=== PATIENT | female | born 2000 | race Caucasian/White ===

== ENCOUNTER 2020-02-28 13:12 | Outpatient (CLI) | payer OTHER, SELFPAY ==
--- NOTE | ~2020-02-28 | US_ITS ---
EXAMINATION: US OB <= 14 weeks fetus DATE: 02/28/2020 13:50 INDICATION: Supervision of normal during first trimester TECHNIQUE: Real-time pelvic ultrasound utilizing both a transvaginal and transabdominal probe was pe rformed. The interpreting radiologist was not present for the study. COMPARISON: None. FINDINGS: The uterus measures 10.5 x 7.7 x 6.3 cm. There is an intrauterine gestational sac. A yolk sac and fe viv pole are identified. The crown rump length measures 1.9 cm, which correlates with an estimated ge stational age of 8 weeks and 4 days. heart motion is identified measuring 163 beats per minute (bpm) by M-mode Doppler. The right ovary measures 3.5 x 2.1 x 1.8 cm. The left ovary measures 4.7 x 3.5 x 2.3 cm. Vascular tacos w identified at both ovaries on color Doppler. There is no free fluid in the pelvis. IMPRESSION: 1. Single living fetus with heart rate of 163 bpm. 2. Gestational age by ultrasound of 8 weeks 4 day(s) +/- 4 day(s) with ultrasound estimated date of delivery (YULISA) of 10/05/2020. Reviewed, dictated and finalized at location A. [facility] IMPRESSION: 1. Single living fetus with heart rate of 163 bpm. 2. Gestational age by ultrasound of 8 weeks 4 day(s) +/- 4 day(s) with ultraso und estimated date of delivery (YULISA) of 10/05/2020.
== END 2020-02-28 13:13 | disposition home or self-care (01) ==
PROVIDERS: PCP Obstetrics & Gynecology; Visit Provider Obstetrics & Gynecology
DX: Z34.91 Encounter for supervision of normal pregnancy, unspecified, first trimester (principal); Z3A.08 8 weeks gestation of pregnancy
CPT/HCPCS: 76801

== ENCOUNTER 2020-04-30 12:54 | Outpatient (CLI) | payer OTHER, SELFPAY ==
--- NOTE | ~2020-04-30 | US_ITS ---
EXAMINATION: US OB follow up EXAM DATE: 04/30/2020 13:36 INDICATION: Routine care. 2nd trimester. TECHNIQUE: Pelvic obstetrical transabdominal sonogram was performed by a technologist. There are mu ltiple grayscale and Doppler images available for interpretation. Comparison is made to prior examina tion from 02/28/2020. FINDINGS: There is a single fetus identified in vertex presentation with a heart rate of 127 beats pe r minute. The placenta is located in the posterior position. There is no sonographic evidence of ret roplacental hemorrhage identified. The amniotic fluid index is 11.9 centimeters, which is normal. BIOMETRIC DATA: Biparietal diameter (BPD): 3.9 cm ----------------> 17 weeks 6 days. Head circumference (HC): 14.3 cm ----------------> 17 weeks 4 days. Abdominal circumference (AC): 12.2 cm ----------> 17 weeks 6 days. Femur length (FL): 2.4 cm --------------------------> 17 weeks 1 day. These measurements are concordant. HC/AC ratio is 1.18 (The 5th -- 95th percentile range is 1.08-1.28. Estimated weight is 200 g +/- 30 g. This is the 53rd percentile when the currently reported cl inical gestation age 17 weeks 3 days, clinical estimated date of delivery (YULISA-OPE) 10/05 is used. Fet al estimated gestational age based on measurements from this exam is 17 weeks 4 days, with an estimat ed date of delivery (YULISA-AUA) 10/04. IMPRESSION: 1. Single fetus in vertex presentation with heart rate 127 beats per minute. 2. Estimated weight of 200 grams, 53rd percentile using the currently reported clinical gestat ion age of 17 weeks 3 days, YULISA(OPE) 10/05. 3. Normal FRANCESCO 12 cm. Reviewed, dictated and finalized at location A. IMPRESSION: 1. Single fetus in vertex presentation with heart rate 127 beats per minute. 2. Estimated weight of 200 grams, 53rd percentile using the currently re ported clinical gestation age of 17 weeks 3 days, YULISA(OPE) 10/05. 3. Normal FRANCESCO 12 cm.
== END 2020-04-30 12:55 | disposition home or self-care (01) ==
PROVIDERS: PCP Obstetrics & Gynecology; Visit Provider Obstetrics & Gynecology
DX: Z34.91 Encounter for supervision of normal pregnancy, unspecified, first trimester (principal); Z3A.17 17 weeks gestation of pregnancy
CPT/HCPCS: 76816

== ENCOUNTER 2020-07-04 11:19 | Outpatient (CLI) | payer OTHER, SELFPAY ==
--- NOTE | ~2020-07-04 | US_ITS ---
EXAMINATION: US OB follow up DATE: 07/04/2020 11:48 INDICATION: Evaluate growth. TECHNIQUE: Real-time transabdominal obstetric ultrasound. FINDINGS: Comparison ultrasound dated 04/30/2020 There is a single living fetus in vertex presentation. The placenta is posterior/fundal without plac enta previa. cardiac activity and movement is noted with a heart rate of 138 beats per minute. T he amniotic fluid volume is normal. FRANCESCO measures 13.2 cm. The following biometric data were obtained: BPD: 68mm corresponds to gestational age 27 weeks 3 days. Head circumference: 248mm corresponds to gestational age 26 weeks 6 days. Abdominal circumference: 243mm corresponds to gestational age 28 weeks 4 days. Femur length: 49mm corresponds to gestational age 26 weeks 3 days. Estimated weight: 1104grams +/- 165grams.] IMPRESSION: 1. Single living intrauterine in vertex presentation with an estimated gestational age of 26 weeks 6 days by inititial ultrasound. Appropriate interval growth. 2. Normal placenta. Reviewed, dictated and finalized at location A. IMPRESSION: 1. Single living intrauterine in vertex presentation with an estimat ed gestational age of 26 weeks 6 days by inititial ultrasound. Appropriate int erval growth. 2. Normal placenta.
== END 2020-07-04 11:20 | disposition home or self-care (01) ==
LOC: ANHIMG 11:21
PROVIDERS: PCP Obstetrics & Gynecology; Visit Provider Obstetrics & Gynecology
DX: Z34.91 Encounter for supervision of normal pregnancy, unspecified, first trimester (principal); Z3A.26 26 weeks gestation of pregnancy
CPT/HCPCS: 76816

== ENCOUNTER 2020-08-14 08:24 | Outpatient (CLI) | payer OTHER, SELFPAY ==
--- NOTE | ~2020-08-14 | US_ITS ---
EXAMINATION: US OB follow up EXAM DATE: 08/14/2020 09:12 INDICATION: Supervision of normal . 3rd trimester. TECHNIQUE: Pelvic obstetrical transabdominal sonogram was performed by a technologist. There are mu ltiple grayscale and Doppler images available for interpretation. Comparison is made to prior examina tion from 07/04/2020. FINDINGS: There is a single fetus identified in vertex presentation with a heart rate of 141 beats pe r minute. The placenta is located in the right fundal position. There is no sonographic evidence of retroplacental hemorrhage identified. The amniotic fluid index is 11.6 centimeters, which is normal. BIOMETRIC DATA: Biparietal diameter (BPD): 8.1 cm ----------------> 32 weeks 3 days. Head circumference (HC): 29.0 cm ----------------> 31 weeks 6 days. Abdominal circumference (AC): 28.4 cm ----------> 32 weeks 3 days. Femur length (FL): 6.0 cm --------------------------> 31 weeks 1 day. These measurements are concordant. HC/AC ratio is 1.02 (The 5th -- 95th percentile range is 0.96-1.14. Estimated weight is 1878 g +/- 282 g. This is the 23rd percentile when the currently reported clinical gestation age 32 weeks 4 days, clinical estimated date of delivery (YULISA-OPE) 10/05 is used. F etal estimated gestational age based on measurements from this exam is 32 weeks 0 days, with an estim ated date of delivery (YULISA-AUA) 10/09. IMPRESSION: 1. Single fetus in vertex presentation with heart rate 141 beats per minute. 2. Estimated weight of 1878 grams, 23rd percentile using the currently reported clinical gesta tion age of 32 weeks 4 days, YULISA(OPE) 10/05. 3. Normal FRANCESCO 11.6 cm. Reviewed, dictated and finalized at location B. IMPRESSION: 1. Single fetus in vertex presentation with heart rate 141 beats per minute. 2. Estimated weight of 1878 grams, 23rd percentile using the currently r eported clinical gestation age of 32 weeks 4 days, YULISA(OPE) 10/05. 3. Normal FRANCESCO 11.6 cm.
== END 2020-08-14 08:25 | disposition home or self-care (01) ==
PROVIDERS: PCP Obstetrics & Gynecology; Visit Provider Obstetrics & Gynecology
DX: Z34.83 Encounter for supervision of other normal pregnancy, third trimester (principal); Z3A.32 32 weeks gestation of pregnancy
CPT/HCPCS: 76816

== ENCOUNTER 2020-10-05 04:59 | Inpatient (IN) | payer OTHER, SELFPAY ==
[2020-10-05] VITALS (61 sets, daily range): BP systolic 87–137; BP diastolic 35–105; PULSE 51–114; TEMP 36.8–37.1; O2SAT 87–100; BMI 34.1
--- NOTE | 2020-10-05 04:59 | LDADM ---
This patient, Mary Newberry, was admitted to Labor/Delivery/Recovery 107 on 10/05/20 at 04:59. Plans for labor, pain management and were discussed with patient. Patient/family oriented to hospital policies and general routines including ID bracelet, bed and alarms, visiting hours, pain management, procedures, bathroom and other care routines, personal items, smoking policy, room service/diet and guest tray routines, infant security routines, and visiting hours. Patient/Family are encouraged to report perceived risks to care and to ask questions if they do not understand what they are told or what they should do. See OBIX for further documentation.
[2020-10-05 06:01] LABS: Basophils Percent Auto 0.3 % (0.2-1.2); Eosinophils Absolute Auto 0.2 K/mm3 (0-0.3); Eosinophils Percent Auto 1.4 % (0-4.4); Hematocrit 32.6 % (37.0-47.0); Hemoglobin 10.6 g/dL (12.0-15.0); Immature Granulocyte Absolute 0.12 K/mm3 (0.00-0.031); Immature Granulocyte Percent A 1.1 % (0-0.5); Lymphocytes Absolute Auto 1.83 K/mm3 (0.9-3.2); Lymphocytes Percent Auto 16.6 % (18.3-44.2); Mean Corpuscular HGB Conc 32.5 g/dl (32-36); Mean Corpuscular Hemoglobin 28.6 pg (26-34); Mean Corpuscular Volume 87.9 fl (80-100); Mean Platelet Volume 10.1 fl (7.4-10.4); Monocytes Absolute Auto 0.6 K/mm3 (0.1-0.6); Monocytes Percent Auto 5.6 % (2.6-8.5); Neutrophils Absolute Auto 8.3 K/mm3 (1.3-6.7); Platelet Count Result 304 k/mm3 (150-375); Red Blood Count 3.71 M/mm3 (4.2-5.4); Red Cell Distribution Width 13.9 % (11.5-14.5)
[2020-10-05] MEDS: DINOPROSTONE 10 MG VAG INSERT VAGINAL (07:09)
[2020-10-05 07:39] LABS: Rapid Plasma Reagin Non-Reactive (NonReactive)
--- NOTE | 2020-10-05 09:07 | PM.IMHP ---
H&P: HPI History of Present Illness Date/Time: 10/05/20 09:07 20 y/o presents for elective induction of labor at 40weeks. complicated by history of miscarriage, MTHFR, and HSV I explained her condition procedure and risks involved including but not limited to maternal and indications for delivery shoulder dystocia or hemorrhage. Risk of surgery including bleeding infection injury to bladder bowel baby pelvic vessels DVT pneumonia wound infections endometrioid is UTI risk of anesthesia. She understands accepts and agrees to proceed. Informed consent obtained. Cervidil followed by oxytocin. 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 [facility] pill- SLYND Chief Complaint: Term Elective induction of labor [facility] Past Medical History Medical History (Updated 10/05/20 @ 09:15 by Carlos Singh MD) Chronic idiopathic constipation Depression History of miscarriage 09-05-2017, 9.5 wks Homozygous MTHFR mutation [id number] Surgical History Surgical History (Updated 10/05/20 @ 09:16 by Carlos Singh MD) H/O dilation and curettage Suction dilation & curettage (surg) : 09-05-2017 Family History Family History (Updated 10/05/20 @ 09:18 by Carlos Singh MD) Grandparent Diabetes mellitus Depression Hypertension Mother Depression Father Hypertension Social History Social History (Updated 10/05/20 @ 09:18 by Carlos Singh MD) Smoking status: Never smoker Second hand tobacco smoke exposure: No Alcohol intake: never Substance use: never Substance use type: does not use Living arrangements: with family Occupation/Education: occupation 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 Gender identity (if verbalized by the patient): Female Sexual Orientation (if Verbalized by the Patient): Straight or Heterosexual Spiritual care concerns: No Agree to blood products: Yes Meds Home Medications and Allergies Home Medications Medication Instructions Recorded Confirmed Type PNV cmb#95-ferrous fumarate-FA 1 tablet PO DAILY 09/21/20 10/05/20 History [] acyclovir 800 mg PO DAILY 09/21/20 10/05/20 History aspirin 81 mg PO BID 09/21/20 10/05/20 History calcium carbonate-vitamin D3 1 tablet PO DAILY 09/21/20 10/05/20 History [Calcium 600 with Vitamin D3] cetirizine 10 mg PO DAILY 09/21/20 10/05/20 History ferrous sulfate 325 mg PO DAILY 09/21/20 10/05/20 History folic acid 1 mg PO DAILY 09/21/20 10/05/20 History sertraline 50 mg PO DAILY 09/21/20 10/05/20 History Allergies Allergy/AdvReac Type Severity Reaction Status Date / Time No Known Allergies Allergy Verified 09/21/20 12:37 Vital Signs Vital Signs - 24 hr 10/05/20 05:41 10/05/20 05:46 10/05/20 06:01 Pulse Rate 100 89 83 Blood Pressure 117/82 123/77 116/77 10/05/20 06:16 10/05/20 06:30 10/05/20 07:01 Pulse Rate 89 92 87 Blood Pressure 118/77 129/87 114/74 10/05/20 07:31 10/05/20 08:01 10/05/20 08:31 Pulse Rate 82 84 86 Blood Pressure 96/61 L 106/66 116/70 10/05/20 09:01 Pulse Rate 90 Blood Pressure 119/77 Exam Const: General: cooperative, healthy appearing, comfortable, no acute distress, well developed, alert, awake and Physically active Nutritional Appearance: average body habitus and well nourished Orientation/consciousness: patient oriented x3 Limitations: no limitations HENMT: Head: normal to inspection Eyes: General: appearance normal, both eyes and all related structures Neck: Neck: normal visual inspection and full ROM Chest: Chest palpation & inspection: normal inspection of the chest Breast/axilla inspection: normal inspection of the breasts Resp: Effort & Inspection: normal respiratory effort Auscultation: clear to auscultation bilaterally Cardio: Palpation: normal PMI Rate: regular rate Rhythm: regular rhythm Heart sounds: S1 normal heart sound present
--- NOTE | 2020-10-05 09:11 | P.HPUP_ITS ---
History and Physical Update Update Date/Time: 10/05/20 09:11 History and Physical has been reviewed, including an updated exam of the patient. There are NO changes in the patient's condition. Risks, benefits, and alternatives have been discussed and questions answered. Patient agrees to proceed with procedure. 20 y/o presents for elective induction of labor at 40weeks. complicated by history of miscarriage, MTHFR, and HSV I explained her condition procedure and risks involved including but not limited to maternal and indications for delivery shoulder dystocia or hemorrhage. Risk of surgery including bleeding infection injury to bladder bowel baby pelvic vessels DVT pneumonia wound infections endometrioid is UTI risk of anesthesia. She understands accepts and agrees to proceed. Informed consent obtained. Cervidil followed by oxytocin. 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
--- NOTE | 2020-10-05 09:12 | P.HP_ITS ---
Obstetrics - Admit Note Admission Note: record reviewed. No pertinent additions to the history and/or any subsequent changes in the physical findings that are not consistent with the expected course of the were found. Additions to the history and/or subsequent changes in the physical findings follow. None. 20 y/o presents for elective induction of labor at 40weeks. complicated by history of miscarriage, MTHFR, and HSV I explained her condition procedure and risks involved including but not limited to maternal and indications for delivery shoulder dystocia or hemorrhage. Risk of surgery including bleeding infection injury to bladder bowel baby pelvic vessels DVT pneumonia wound infections endometrioid is UTI risk of anesthesia. She understands accepts and agrees to proceed. Informed consent obtained. Cervidil followed by oxytocin. 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
--- NOTE | 2020-10-05 15:09 | PM.OBPNLAB ---
Pain Control Date/time seen: 10/05/20 15:09 Pain control: tolerating well Pelvic Exam Comments: Not re checked Cervidil in place Contractions Monitor mode: External Contraction pattern: Irregular Contraction intensity: Mild Status status: Category l Assessment and Plan Assessment: induction ongoing Plan: continuous present management
[2020-10-05] MEDS: LACTATED RINGERS 1,000 ML 125 ML IV CONT (20:58)
[2020-10-05] MEDS: OXYTOCIN 30 UNITS/NS 500 ML 30 UNITS/500 ML BAG 6 UNITS IV CONT (20:59)
--- NOTE | 2020-10-05 22:33 | WPDANESEPP ---
Anes - Eval Pre Procedure Procedure: labor epidural Date/Time: 10/05/20 22:33 Surgeon: aman Pre Op Diagnosis: IOL Patient Data Age: 20 Gender: F Height: 1.65 m Weight: 93 kg Last Vital Signs Pulse 85 10/05/20 22:16 BP 127/76 10/05/20 22:16 Allergies Allergy/AdvReac Type Severity Reaction Status Date / Time No Known Allergies Allergy Verified 09/21/20 12:37 Home Medications Medication Instructions Recorded Confirmed Type PNV cmb#95-ferrous fumarate-FA 1 tablet PO DAILY 09/21/20 10/05/20 History [] acyclovir 800 mg PO DAILY 09/21/20 10/05/20 History aspirin 81 mg PO BID 09/21/20 10/05/20 History calcium carbonate-vitamin D3 1 tablet PO DAILY 09/21/20 10/05/20 History [Calcium 600 with Vitamin D3] cetirizine 10 mg PO DAILY 09/21/20 10/05/20 History ferrous sulfate 325 mg PO DAILY 09/21/20 10/05/20 History folic acid 1 mg PO DAILY 09/21/20 10/05/20 History sertraline 50 mg PO DAILY 09/21/20 10/05/20 History Laboratory Tests 10/05/20 10/05/20 10/05/20 05:38 05:38 05:38 WBC 11.0 K/mm3 H K/mm3 (4.5-10.0) RBC 3.71 M/mm3 L M/mm3 (4.2-5.4) Hgb 10.6 g/dL L g/dL (12.0-15.0) Hct 32.6 % L % (37.0-47.0) MCV 87.9 fl fl (80-100) MCH 28.6 pg pg (26-34) MCHC 32.5 g/dl g/dl (32-36) RDW 13.9 % % (11.5-14.5) Plt Count 304 k/mm3 k/mm3 (150-375) MPV 10.1 fl fl (7.4-10.4) Immature Gran % (Auto) 1.1 % H % (0-0.5) Neut % (Auto) 75.0 % H % (45.5-73.1) Lymph % (Auto) 16.6 % L % (18.3-44.2) [place] % (Auto) 5.6 % % (2.6-8.5) Eos % (Auto) 1.4 % % (0-4.4) Baso % (Auto) 0.3 % % (0.2-1.2) Lymph # (Auto) 1.83 K/mm3 K/mm3 (0.9-3.2) [place] # (Auto) 0.6 K/mm3 K/mm3 (0.1-0.6) Eos # (Auto) 0.2 K/mm3 K/mm3 (0-0.3) Baso # (Auto) 0.0 K/mm3 K/mm3 (0.0-0.1) Abs Immat Gran (auto) 0.12 K/mm3 H K/mm3 (0.00-0.031) Absolute Neuts (auto) 8.3 K/mm3 H K/mm3 (1.3-6.7) Absolute Nucleated RBC 0.0 K/mm3 K/mm3 (0.0-0.012) Nucleated RBC % 0.0 % % (0.0-0.2) RPR Non-reactive (NonReactive) Blood Type B Positive Antibody Screen Negative Patient hx anesthesia problems: none Family hx anesthesia problems: none PMFSH Past Medical History Medical History (Updated 10/05/20 @ 09:15 by Carlos Singh MD) Chronic idiopathic constipation Depression History of miscarriage 09-05-2017, 9.5 wks Homozygous MTHFR mutation C677T Surgical History Surgical History (Updated 10/05/20 @ 09:16 by Carlos Singh MD) H/O dilation and curettage Suction dilation & curettage (surg) : 09-05-2017 Family History Family History (Updated 10/05/20 @ 09:18 by Carlos Singh MD) Grandparent Diabetes mellitus Depression Hypertension Mother Depression Father Hypertension Social History Social History (Updated 10/05/20 @ 09:18 by Carlos Singh MD) Smoking status: Never smoker Second hand tobacco smoke exposure: No Alcohol intake: never Substance use: never Substance use type: does not use Living arrangements: with family Occupation/Education: occupation 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
[2020-10-06] VITALS (98 sets, daily range): BP systolic 87–147; BP diastolic 54–104; PULSE 64–156; RESP 16; TEMP 36.1–37.3; O2SAT 94–100
[2020-10-06] MEDS: LACTATED RINGERS 1,000 ML 125 ML IV CONT (02:41)
--- NOTE | 2020-10-06 06:51 | PM.OBPNLAB ---
Pain Control Date/time seen: 10/05/20 20:51 Pain control: tolerating well Pelvic Exam Dilation (cm): 2 Effacement (%): 80 station: -3 Amniotic membrane status: Intact Contractions Monitor mode: External Contraction pattern: Irregular Contraction intensity: Mild Status status: Category l Assessment and Plan Assessment: induction ongoing Plan: continuous present management
--- NOTE | 2020-10-06 06:53 | PM.OBPNLAB ---
Pain Control Date/time seen: 10/06/20 00:53 Pain control: tolerating well and epidural Pelvic Exam Dilation (cm): 3 Effacement (%): 100 station: -3 Amniotic membrane status: Intact Contractions Monitor mode: External Contraction pattern: Irregular Contraction intensity: Mild Status status: Category l Assessment and Plan Pitocin rate (mU/min): 10 Assessment: induction ongoing Plan: continuous present management
--- NOTE | 2020-10-06 06:54 | PM.OBPNLAB ---
Pain Control Date/time seen: 10/06/20 04:54 Pain control: tolerating well and epidural Comments: SROM 0230 clear af Pelvic Exam Dilation (cm): 6 Effacement (%): 100 station: -1 Amniotic membrane status: Ruptured Contractions Monitor mode: External Contraction pattern: Regular Contraction intensity: Mild Status status: Category l Assessment and Plan Pitocin rate (mU/min): 10 Assessment: active labor Plan: continuous present management
--- NOTE | 2020-10-06 06:55 | PM.OBPNLAB ---
Pain Control Date/time seen: 10/06/20 06:25 Pain control: tolerating well and epidural Comments: complete stage 1 Pelvic Exam Dilation (cm): 10 Effacement (%): 100 station: 0 Amniotic membrane status: Ruptured Contractions Monitor mode: External Contraction pattern: Regular Contraction intensity: Mild Status status: Category l Assessment and Plan Pitocin rate (mU/min): 14 Assessment: active labor (complete stage 1) Plan: continuous present management Comments: begin pushing stage 2
--- NOTE | 2020-10-06 06:57 | PM.OBPRVD ---
OB - Delivery Note Procedure Delivery date: 10/06/20 events: Labor Induction Intrapartal events: None Induction method: per pitocin protocol Delivery augmentation: rupture of membranes (SROM 0200) Delivery monitor: external FHT and external uterine Route of delivery: Episiotomy description: None Laceration Description: None Specimen: Yes (Placenta, cord blood, cord blood gases) Quantitative Blood Loss (ml): 250 Anesthesia type: Epidural Disposition: floor Complications: None Narrative: After completing 1st stage of labor patient pushed in 2nd stage for 30 minutes without difficulty under epidural anesthesia. She had a normal spontaneous vertex vaginal delivery a viable male with nuchal cord reduced at the time of delivery easily delivery of the anterior shoulder occurred readily and the infant was delivered and placed onto the maternal abdomen the cord was then clamped and cut there was spontaneous respirations and cry and the baby was transitioned by the nursery nurse in attendance. Time of delivery 7:10 a.m. on 10/06/2020. scores 8 9 at 1 and 5 minutes weight 8 lb 13 oz length 21 and have it was long taken to the nursery in stable condition normal transition. Cord gases were then obtained cord blood obtained and with Pitocin running intravenously 3rd stage of labor completed with a normal spontaneous vaginal delivery of the placenta without difficulty. Blood clots removed from the intrauterine cavity the uterus contracted well. Inspection of the perineum vagina cervix revealed no lacerations other than normal abrasions of the anterior fourchette. Mom and baby in stable condition in birthing room 1. 0 7. [place] Baby Date of : 10/06/20 Time of : 07:10 Weeks of gestation at delivery: 40 gender: Male (Suman) Weight (pounds): 8 Weight (ounces): 13 presentation: vertex position: Right Occiput Anterior Placenta delivery description: Spontaneous and Normal Configuration cord vessel description: 3 Vessels and Nuchal Cord score one minute: 8 score five minutes: 9 Narrative: Normal transition taken to the nursery in stable condition
[2020-10-06] MEDS: OXYTOCIN 30 UNITS/NS 500 ML 30 UNITS/500 ML BAG 125 UNITS IV CONT (07:43)
--- NOTE | 2020-10-06 09:40 | OBPPTRN ---
Patient transferred to post room # via ( ). Support person present. Oriented to unit, room, information board, rooming in, admission packet and security measures. Patient verbalizes understanding.
--- NOTE | 2020-10-06 09:40 | OBPPTRN ---
Patient transferred to post room #282 via wheelchair. Support person present. Oriented to unit, room, information board, rooming in, admission packet and security measures. Patient verbalizes understanding. with patient.
[2020-10-06] MEDS: MULTIVIT/MIN/PREN/FOL AC/IRON TABLET 1 TAB PO (09:54)
[2020-10-06] MEDS: SERTRALINE HCL 50 MG TABLET PO (09:54)
[2020-10-06] MEDS: LORATADINE 10 MG TABLET PO (09:54)
[2020-10-06] MEDS: ACETAMINOPHEN 325 MG TABLET 650 MG PO (09:54)
[2020-10-06] MEDS: ACYCLOVIR 400 MG TABLET 800 MG PO (09:55)
[2020-10-06] MEDS: IBUPROFEN 600 MG TABLET PO ×3 (09:59→22:51)
[2020-10-07 04:30] VITALS: BP 113/77; PULSE 82; RESP 16; TEMP 36.2; O2SAT 97
[2020-10-07] MEDS: IBUPROFEN 600 MG TABLET PO ×2 (04:34→11:30)
[2020-10-07 05:21] LABS: Hematocrit 29.3 % (37.0-47.0); Hemoglobin 9.4 g/dL (12.0-15.0)
[2020-10-07 07:45] VITALS: BP 101/56; PULSE 93; RESP 16; TEMP 37; O2SAT 97
--- NOTE | 2020-10-07 07:51 | WPDANLDPN2 ---
Anes-Prog Note L&D Date/Time: 10/07/20 07:51 Comfortable throughout: labor and delivery Neuraxial method: epidural Epidural/Spinal procedure site: clean & non-tender Neuro status: Neuro function grossly intact. Cardiovascular status: normal Respiratory status: normal Airway patency: baseline Mental status: baseline Post-Op hydration status: normal Vital Signs: Last Vital Signs Temp 97.1 F L 10/07/20 04:30 Pulse 82 10/07/20 04:30 Resp 16 10/07/20 04:30 BP 113/77 10/07/20 04:30 Pulse Ox 97 10/07/20 04:30 Pain score (VAS): 3/10 I/O: Intake & Output 10/06/20 10/06/20 10/07/20 15:59 23:59 07:59 Output Total 140 Balance -140 Post-procedural complaints: none Patient feedback: Patient satisfied with anesthetic care.
[2020-10-07] MEDS: POLYSACCHARIDE IRON COMPLEX 150 MG CAPSULE PO ×2 (08:16→16:46)
[2020-10-07] MEDS: MULTIVIT/MIN/PREN/FOL AC/IRON TABLET 1 TAB PO (08:16)
[2020-10-07] MEDS: ACYCLOVIR 400 MG TABLET 800 MG PO (08:17)
[2020-10-07] MEDS: DOCUSATE SODIUM 100 MG CAPSULE PO ×2 (08:17→16:46)
[2020-10-07] MEDS: LORATADINE 10 MG TABLET PO (08:17)
[2020-10-07] MEDS: SERTRALINE HCL 50 MG TABLET PO (08:17)
--- NOTE | 2020-10-07 08:42 | P.PNOB_ITS ---
OB - PN: Subj Subjective Date/time seen: 10/07/20 08:42 Interval history: ppd 1 Patient comments: no complaints, pain well controlled, tolerating diet and flatus present [place] baby status: doing well and nursing well [place] feeding status: exclusively breast feeding OB - PN: Obj Data Labs CBC & Chem 7: 10/07/20 04:28 Labs: Laboratory Results - last 24 hr 10/07/20 04:28 Hgb 9.4 L Hct 29.3 L OB - PN A/P Assessment and Plan (1) Term delivered: Code(s): O80 - Encounter for full-term uncomplicated delivery Status: Acute (2) Anemia: Code(s): D64.9 - Anemia, unspecified Status: Acute (3) Homozygous MTHFR mutation C677T: Code(s): Z15.89 - Genetic susceptibility to other disease Status: Acute (4) Depression: Code(s): F32.9 - Major depressive disorder, single episode, unspecified Status: Acute Plan day: 1 Plan: routine care, discharge home and follow up 6 weeks Time Spent With Patient Time: Total time spent is greater than 50% in coordination of care (as documented) at patient's floor/unit and/or counseling patient: Time with patient: less than 15 minutes Review of Systems Review of Systems: All systems reviewed & are unremarkable except as noted in HPI and below Exam Const: General: cooperative, healthy appearing, comfortable, no acute distress, well developed, alert, awake and Physically active Nutritional Appearance: average body habitus and well nourished Orientation/cons ciousness: patient oriented x3 Limitations: no limitations HENMT: Head: normal to inspection Eyes: General: appearance normal, both eyes and all related structures Neck: Neck: normal visual inspection Chest: Chest palpation & inspection: normal inspection of the chest Breast/axilla inspection: normal inspection of the breasts Resp: Effort & Inspection: normal respiratory effort Auscultation: clear to auscultation bilaterally Cardio: Rate: regular rate Rhythm: regular rhythm GI: Inspection: normal to inspection GI Palp: Yes Soft to palpation Auscultation: normal bowel sounds : External Female Exam: normal external appearance Bimanual exam- vagina & uterus: non-tender Back/Spine/Pelvis: Back: no CVA tenderness Skin: General skin exam: normal color Neuro: General: patient oriented x3, gait normal, tone normal and moves all extremities Extrem: General: normal to inspection and full ROM Psych: Appearance: grossly normal Mental Status: mental status grossly normal Speech and movement: Normal speech and movement present Affect: normal affect Attitude: cooperative Thought process: Normal thought process present Thought content: Yes Normal thought content present Insight: Good insight present (Psych) Judgement: Good judgement present (Psych)
--- NOTE | 2020-10-07 12:00 | PC.NURSE ---
Patient viewed the discharge video Mother & Baby Care, The First Two Weeks . Patient was given the opportunity and encouraged to ask questions. Patient verbalized understanding of information shared and has been given the mother/baby guide for home reference.
[2020-10-07 21:15] VITALS: BP 124/81; PULSE 87; RESP 18; TEMP 36.3; O2SAT 100
--- NOTE | 2020-10-08 06:58 | PM.OBDSVD ---
DS: Admitting Diagnosis Admitting Diagnosis Term Elective induction of labor MTHFR homozygous Depression DS: Discharge Diagnosis Discharge Diagnosis (1) Term delivered: Code(s): O80 - Encounter for full-term uncomplicated delivery Status: Acute (2) Elective induction of labor planned: Status: Acute (3) Homozygous MTHFR mutation C677T: Code(s): Z15.89 - Genetic susceptibility to other disease Status: Acute (4) Depression: Code(s): F32.9 - Major depressive disorder, single episode, unspecified Status: Acute OB - DS: Summary Hospital Course Time spent discussing smoking cessation with patient: 3 to 10 minutes OB Procedures : Ultrasound OB Procedures Intrapartum: Spontaneous Vag Delivery OB Procedures: : None Peripartum Data Infant Delivery Method: Natural Vaginal Laceration Description: None Episiotomy description: None complications: none [place] 1: Gender: Male (Suman) Disposition of : home Status at Discharge Cognitive/behavioral status at discharge: Normal Functional status at discharge: independent ambulation Overall status at discharge: patient is back to baseline Time Spent with Patient Time attestation: Total time spent providing and/or coordinating discharge services: Time spent: Less than 30 minutes Exam Const: General: cooperative, healthy appearing, comfortable, no acute distress, well developed, alert, awake and Physically active Nutritional Appearance: average body habitus Orientation/consciousness: patient oriented x3 Limitations: no limitations HENMT: Head: normal to inspection Eyes: General: appearance normal, both eyes and all related structures Neck: Neck: normal visual inspection Chest: Chest palpation & inspection: normal inspection of the chest Breast/axilla inspection: normal inspection of the breasts Resp: Effort & Inspection: normal respiratory effort Auscultation: clear to auscultation bilaterally Cardio: Rate: regular rate Rhythm: regular rhythm GI: Inspection: normal to inspection GI Palp: Yes Soft to palpation Percussion: Yes normal to percussion Auscultation: normal bowel sounds : External Female Exam: normal external appearance Bimanual exam- vagina & uterus: non-tender Back/Spine/Pelvis: Back: no CVA tenderness Skin: General skin exam: normal color Neuro: General: patient oriented x3, gait normal, tone normal, moves all extremities and Normal light touch and pain sensation Extrem: General: normal to inspection and full ROM Psych: Appearance: grossly normal Mental Status: mental status grossly normal Speech and movement: Normal speech and movement present Affect: normal affect Attitude: cooperative Thought process: Normal thought process present Thought content: Yes Normal thought content present Insight: Good insight present (Psych) Judgement: Good judgement present (Psych) DS: Data Data Completed and Pending Labs on day of discharge: Labs from last 24 hours 10/05/20 10/05/20 05:38 05:38 RPR Non-reactive Blood Type B Positive Antibody Screen Negative Discharge Plan Discharge Attending physician on discharge: Carlos Singh Discharging Clinician: Carlos Singh Anticipated Discharge Date/Time: 10/08/20 07:50 Patient Disposition: Home, Self-Care Activity: may shower, unlimited and as tolerated Diet: as tolerated and regular Wound Care Instructions: follow printed instructions Discharge Instructions: Routine Education: Mom and Baby Guide and Preeclampsia Handout Given to: Mother Follow-Up: Call your delivering provider's office for an appointment to be seen in: 3 weeks Mom and baby should come to the [facility] for the follow-up appointment. Appointment Date/Time: October 10, 2020 at 8:00 am What to expect at your follow-up visit: Physical Assessment Call [phone]
[2020-10-08 07:35] VITALS: BP 136/82; PULSE 84; RESP 16; TEMP 37.1; O2SAT 99
--- NOTE | 2020-10-08 09:00 | PC.NURSE ---
Mother called out for assist, reporting is sleepy at times. Mother has bottle fed infant is she is unable to wake or latch. Demonstrated stimulation techniques to wake infant. Infant easily awoken with feeding cues noted. is able to freely thrust tongue past gum ridge and flange both lips. Skin is intact on both nipples, no redness and bruising noted. Reviewed infant feeding cues, frequencies, duration of feedings, feeding elimination flow sheet, and signs of adequate intake. Assisted with to breast. Reviewed positioning/alignment in cross cradle, holding breast in ?U? hold and guided asymmetrical latch on. Discussed rational for each. able to latch correctly. Reviewed signs of a correct latch, effective nursing and suck swallow ratio. Infant nursed eagerly, with steady draws and frequent swallowing noted. Reviewed the difference of effective vs ineffective nursing. Suggested mother stimulate while feeding to increase stimulation, increase intake and to assist with maintaining deep latch. Infant would slip to shallow latch, mother reports tenderness. Demonstrated how to adjust latch more deeply while feeding. Mother reports she can feel change in latch and has no tenderness. Nipple care reviewed of lanolin after feedings, warm compresses as needed. Mother verbalizes she is able to independently latch with appropriate positioning/alignment. She denies any nipple discomfort, is feeding as required and waking infant to feed if needed. Infant is feeding as required in the past 24 hours, and is currently meeting outcomes for weight, output, jaundice and feeding frequencies. Mother will supplement if does not latch and plans to continue with bottle feeding at times. Mother states she feels confident to continue current feeding plan at home. Reviewed transition to breast milk, signs of adequate intake, and engorgement/relief. Instructed to call ICP if intake/output less than required. Reviewed regular medications mother is taking. Information provided per Sandra. Reviewed community resources on the [facility] website and in the Mom/Baby guide. Information on outpatient services provided. Mother has no further questions at this time.
[2020-10-08] MEDS: ACYCLOVIR 400 MG TABLET 800 MG PO (09:02)
[2020-10-08] MEDS: POLYSACCHARIDE IRON COMPLEX 150 MG CAPSULE PO (09:02)
[2020-10-08] MEDS: MULTIVIT/MIN/PREN/FOL AC/IRON TABLET 1 TAB PO (09:02)
[2020-10-08] MEDS: LORATADINE 10 MG TABLET PO (09:02)
[2020-10-08] MEDS: SERTRALINE HCL 50 MG TABLET PO (09:02)
[2020-10-08] MEDS: IBUPROFEN 600 MG TABLET PO (09:02)
[2020-10-08] MEDS: DOCUSATE SODIUM 100 MG CAPSULE PO (09:03)
[2020-10-10 07:51] VITALS: BP 136/78; PULSE 96; RESP 20; TEMP 37.4; O2SAT 98
== END 2020-10-08 10:23 | disposition home or self-care (01) | DRG 560 ==
LOC: ANHLDR 10-06 07:51 → ANHOB2 10-06 10:49
PROVIDERS: Admitting Provider Obstetrics & Gynecology; PCP Obstetrics & Gynecology; Visit Provider Obstetrics & Gynecology
DX: O99.284 Endocrine, nutritional and metabolic diseases complicating childbirth (principal); E72.12 Methylenetetrahydrofolate reductase deficiency; O98.52 Other viral diseases complicating childbirth; B00.9 Herpesviral infection, unspecified; O99.344 Other mental disorders complicating childbirth; F32.9 Major depressive disorder, single episode, unspecified; O69.81X0 Labor and delivery complicated by cord around neck, without compression, not applicable or unspecified; Z3A.40 40 weeks gestation of pregnancy; Z37.0 Single live birth
CPT/HCPCS: 36415; 85014; 85018; 85025; 86592; 86850; 86900; 86901; 88307; A9270; J2590; J2795; J7120

== ENCOUNTER 2020-11-10 18:11 | Emergency (ER) | payer OTHER, SELFPAY ==
[2020-11-10 18:43] VITALS: BP 121/83; PULSE 55; RESP 20; TEMP 37.1; O2SAT 100
[2020-11-10 21:46] VITALS: BP 110/72; PULSE 97; RESP 18; TEMP 37.6; O2SAT 99
--- NOTE | 2020-11-10 22:58 | ED.GENADULT ---
HPI - General Adult General Chief complaint: Unspecified Stated complaint: breast pain Time Seen by Provider: 11/10/20 22:21 History of Present Illness HPI narrative: Patient is a 20-year-old female who presents to the ER with reports of left breast pain. Ongoing for last 2 days. Located over the medial aspect near the chest moving towards the areola. It hurts when she pumps or breast-feeds. Elevated temperature this evening but no formally documented fever. She also reports some left lower jaw pain without injury to her teeth. She suspects she may be having some swelling. Related Data Home Medications Medication Instructions Recorded Confirmed Calcium 600 with Vitamin D3 1 tablet PO DAILY 09/21/20 10/05/20 PNV cmb#95-ferrous fumarate-FA 1 tablet PO DAILY 09/21/20 10/05/20 [] acyclovir 800 mg PO DAILY 09/21/20 10/05/20 cetirizine 10 mg PO DAILY 09/21/20 10/05/20 ferrous sulfate 325 mg PO DAILY 09/21/20 10/05/20 folic acid 1 mg PO DAILY 09/21/20 10/05/20 sertraline 50 mg PO DAILY 09/21/20 10/05/20 Allergies Allergy/AdvReac Type Severity Reaction Status Date / Time No Known Allergies Allergy Verified 09/21/20 12:37 Review of Systems Review of Systems: All systems reviewed & are unremarkable except as noted in HPI and below Constitutional: Constitutional: Denies chills and Denies fever(s) ENT: Denies nasal congestion and Denies sore throat Respiratory: Respiratory: Denies cough, Denies dyspnea and Denies wheezing Gastrointestinal: Gastrointestinal: Denies abdominal pain, Denies diarrhea, Denies nausea and Denies vomiting Genitourinary: Genitourinary: Denies nocturia, Denies dysuria and Denies vaginal discharge Integumentary/Breasts: Skin/Breast: Reports system reviewed and no additional complaints, except as docu [facility] Past Medical History Medical History (Updated 11/10/20 @ 23:02 by Jim Lyons MD) Anemia Chronic idiopathic constipation Depression History of miscarriage 09-05-2017, 9.5 wks Homozygous MTHFR mutation C677T Surgical History Surgical History (Updated 10/05/20 @ 09:16 by Carlos Singh MD) H/O dilation and curettage Suction dilation & curettage (surg) : 09-05-2017 Family History Family History (Updated 10/05/20 @ 09:18 by Carlos Singh MD) Grandparent Diabetes mellitus Depression Hypertension Mother Depression Father Hypertension Social History Social History (Updated 10/05/20 @ 09:18 by Carlos Singh MD) Smoking status: Never smoker Second hand tobacco smoke exposure: No Alcohol intake: never Substance use: never Substance use type: does not use 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 HEAD: Normocephalic, atraumatic. ENT: Mucous membranes moist. No facial swelling. No palpable drainable abscess within the intraoral cavity. Breast: Mild tenderness along the medial aspect of the left breast moving towards areola with slight redness. No palpable cords. No overt cellulitis or fluctuant abscess. EXTREMITIES: Normal range of motion. No edema. NEURO: Alert and oriented x3. PSYCH: Normal mood and affect. Course Course Emergency Course: Discharged with dicloxacillin. Follow-up with primary OB. Vital Signs Vital signs: Vital Signs Temperature 98.7 F 11/10/20 18:43 Pulse Rate 55 L 11/10/20 18:43 Respiratory Rate 20 11/10/20 18:43 Blood Pressure 121/83 11/10/20 18:43 Pulse Oximetry 100 11/10/20 18:43 Temperature 99.7 F H 11/10/20 21:46 Pulse Rate 97 11/10/20 21:46 Respiratory Rate 18 11/10/20 21:46 Blood Pressure 110/72 11/10/20 21:46 Pulse Oximetry 99 11/10/20 21:46 Medical Decision
[2020-11-10 23:10] VITALS: BP 101/68; PULSE 99; RESP 15; O2SAT 98
== END 2020-11-10 23:11 | disposition home or self-care (01) ==
PROVIDERS: Emergency Provider Emergency Medicine; PCP Obstetrics & Gynecology
DX: N61.0 Mastitis without abscess (principal); D64.9 Anemia, unspecified; K59.04 Chronic idiopathic constipation; F32.A Depression, unspecified
CPT/HCPCS: 99283

== ENCOUNTER 2020-11-29 06:27 | Emergency (ER) | payer OTHER, SELFPAY ==
[2020-11-29] VITALS (13 sets, daily range): BP systolic 106–136; BP diastolic 70–79; PULSE 66–96; RESP 12–23; TEMP 36.5; O2SAT 97–100
--- NOTE | ~2020-11-29 | CT_ITS ---
EXAMINATION: CTA chest PE protocol DATE: 11/29/2020 08:59 INDICATION: pleuritic chest pain with dyspnea, recent post . TECHNIQUE: Computed tomography (CT) pulmonary angiogram of the chest was performed with 100 mL Omnipa que-350 intravenous contrast. Additional 3D reconstructions utilizing coronal maximum intensity proje ction (MIP) were performed. Automated exposure control and iterative reconstruction technique were em ployed. The dose-length product was 305.20 mGy-cm. COMPARISON: None FINDINGS: Excellent contrast opacification of the pulmonary arteries. There is mild streak artifact from dense contrast in the superior vena cava and right atrium. Mild scattered respiratory motion artifact which does not significantly limit evaluation. No pulmonary embolism. No pneumonia, pulmonary edema or oth er pulmonary infiltrates. No pleural effusion or pneumothorax. Heart size is normal. No pericardial e ffusion. Thoracic aorta is normal in caliber with no dissection. No pathologically enlarged thoracic lymphadenopathy. Visualized upper abdomen and bones are unremarkable. IMPRESSION: 1. No pulmonary embolism or other acute cardiopulmonary disease. Reviewed, dictated and finalized at location A.
[2020-11-29 07:15] LABS: Basophils Percent Auto 0.6 % (0.2-1.2); Eosinophils Absolute Auto 0.2 K/mm3 (0-0.3); Eosinophils Percent Auto 3.7 % (0-4.4); Hematocrit 39.1 % (37.0-47.0); Hemoglobin 12.9 g/dL (12.0-15.0); Immature Granulocyte Absolute 0.02 K/mm3 (0.00-0.031); Immature Granulocyte Percent A 0.3 % (0-0.5); Lymphocytes Absolute Auto 1.99 K/mm3 (0.9-3.2); Mean Corpuscular Hemoglobin 29.4 pg (26-34); Mean Corpuscular Volume 89.1 fl (80-100); Monocytes Absolute Auto 0.3 K/mm3 (0.1-0.6); Neutrophils Absolute Auto 3.9 K/mm3 (1.3-6.7); Neutrophils Percent Auto 60.4 % (45.5-73.1); Platelet Count Result 226 k/mm3 (150-375); Red Blood Count 4.39 M/mm3 (4.2-5.4); Red Cell Distribution Width 13.6 % (11.5-14.5); White Blood Count 6.4 K/mm3 (4.5-10.0)
[2020-11-29 07:27] LABS: Anion Gap 11 mmol/L (8-16); Blood Urea Nitrogen 11 mg/dL (7-17); Calcium 9.8 mg/dL (8.4-10.2); Carbon Dioxide 26 mmol/L (22-30); Chloride 105 mmol/L (98-107); Estimated CRCL calculation 100 ml/min; Estimated Glomerular Filt Rate > 60; Glucose 111 mg/dL (65-110); Potassium 3.5 mmol/L (3.4-5.0); Sodium 142 mmol/L (137-145)
[2020-11-29 07:36] LABS: Prothrombin Time 12.9 Seconds (11.1-14.7)
[2020-11-29 07:37] LABS: Partial Thromboplastin Time 22.3 SECONDS (22.3-36.8)
[2020-11-29 07:40] LABS: Troponin I < 0.012 ng/mL (0.000-0.034)
[2020-11-29 08:21] LABS: Alanine Aminotransferase 94 U/L (4-35); Albumin Level 4.1 g/dL (3.5-5.1); Alkaline Phosphatase 119 U/L (38-126); Aspartate Amino Transferase 179 U/L (14-36); Bilirubin,Total 0.4 mg/dL (0.2-1.3); Lipase 100 U/L (23-300)
--- NOTE | 2020-11-29 08:33 | ED.ABDPAIN ---
HPI - Abdominal Pain General Chief Complaint: Abdominal Pain Stated Complaint: upper abd pain, short of breath, back pain, n/v Time Seen by Provider: 11/29/20 07:16 Source: patient History of Present Illness HPI narrative: Patient presents with abdominal pain. Reports yesterday she had right-sided back pain today she is reporting right upper quadrant pain. Her pain is achy/sharp, intermittent, no clear aggravating or alleviating factors such as change with position or association with eating or drinking. Her symptoms nearly resolved at the time of ER evaluation. Reports mild nausea but denies vomiting or diarrhea. She denies fevers. Reports she is on control and recently gave . She denies any lightheadedness or dizziness Related Data Home Medications Medication Instructions Recorded Confirmed Calcium 600 with Vitamin D3 1 tablet PO DAILY 09/21/20 10/05/20 PNV cmb#95-ferrous fumarate-FA 1 tablet PO DAILY 09/21/20 10/05/20 [] acyclovir 800 mg PO DAILY 09/21/20 10/05/20 cetirizine 10 mg PO DAILY 09/21/20 10/05/20 ferrous sulfate 325 mg PO DAILY 09/21/20 10/05/20 folic acid 1 mg PO DAILY 09/21/20 10/05/20 sertraline 50 mg PO DAILY 09/21/20 10/05/20 Allergies Allergy/AdvReac Type Severity Reaction Status Date / Time No Known Allergies Allergy Verified 11/29/20 06:57 Review of Systems Review of Systems: CONSTITUTIONAL: Denies fever, chills, or sweats. EYES: Denies visual changes, redness, or discharge. ENT: Denies rhinorrhea, congestion, sore throat, or otalgia. CARDIOVASCULAR: Denies chest pain, palpitations, or edema. RESPIRATORY: Denies cough or dyspnea. GASTROINTESTINAL: Reports abdominal pain and nausea GENITOURINARY: Denies dysuria or hematuria. SKIN: Denies rash or itching. MUSCULOSKELETAL: Denies back pain, joint pain, or myalgia. NEUROLOGIC: Denies headache, numbness, dizziness, or weakness. PSYCHIATRIC: Denies anxiety or depression. All systems reviewed & are unremarkable except as noted in HPI and below PMFSH Past Medical History Medical History Anemia Chronic idiopathic constipation Depression History of miscarriage 09-05-2017, 9.5 wks Homozygous MTHFR mutation C677T Surgical History Surgical History H/O dilation and curettage Suction dilation & curettage (surg) : 09-05-2017 Family History Family History Grandparent Diabetes mellitus Depression Hypertension Mother Depression Father Hypertension Social History Social History Smoking status: Never smoker Second hand tobacco smoke exposure: No Alcohol intake: never Substance use: never Substance use type: does not use 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 HEAD: Normocephalic, atraumatic. EYES: PERRLA and EOMI. ENT: Nares clear, no rhinorrhea or epistaxis. Mucous membranes moist. NECK: Supple. No masses. No JVD CHEST: Clear to auscultation. No respiratory distress. No wheezes rales or rhonchi HEART: Regular rate and rhythm. No murmur heard. Normal peripheral pulses. ABDOMEN: Mild right upper quadrant pain with deep palpation soft, nondistended, negative Cage's EXTREMITIES: Normal range of motion. No edema. SKIN: Warm, dry, no rash. NEURO: No focal deficits. Alert and oriented x3. PSYCH: Normal mood and affect. Course Reevaluation(s) Reevaluation #1: Patient is resting comfortably results and plan reviewed with patient. Patient comfortable with outpatient plan. Date: 11/29/20 Time:
== END 2020-11-29 10:01 | disposition home or self-care (01) ==
PROVIDERS: Emergency Medicine; Emergency Provider Emergency Medicine; PCP Obstetrics & Gynecology
DX: R10.11 Right upper quadrant pain (principal)
CPT/HCPCS: 36415; 71275; 80048; 80076; 81025; 83690; 84484; 85025; 85610; 85730; 99284; Q9967

== ENCOUNTER 2020-12-01 03:06 | Inpatient (IN) | payer OTHER, SELFPAY ==
[2020-12-01] VITALS (8 sets, daily range): BP systolic 97–112; BP diastolic 49–71; PULSE 51–88; RESP 12–17; TEMP 35.7–37.1; O2SAT 96–100; BMI 29.0
--- NOTE | ~2020-12-01 | XR_ITS ---
EXAMINATION: XR ERCP DATE: 12/03/2020 14:49 INDICATION: Choledocholithiasis TECHNIQUE: Two intraoperative fluoroscopic images obtained during endoscopic retrograde cholangiopanc reatography (ERCP) are submitted for review. Total fluoroscopic time was 238.6 seconds. COMPARISON: MRCP from yesterday FINDINGS: There is mild dilation of the common bile duct. One image demonstrates an inflated balloon in the distal common bile duct. IMPRESSION: 1. Dilated common bile duct. Please refer to the ERCP procedure note for additional details. Reviewed, dictated and finalized at location A. IMPRESSION: 1. Dilated common bile duct. Please refer to the ERCP procedure note for additi onal details.
--- NOTE | ~2020-12-01 | XR_ITS ---
EXAMINATION: XR cholangiogram surg 1st inj EXAM DATE: 12/05/2020 16:31 INDICATION: Cholelithiasis. TECHNIQUE: Multiples Cine fluoroscopic images were obtained during injection of the cystic duct duri ng laparoscopic cholecystectomy. Procedure performed by Dr. Santos Haskins MD on 12/05/2020 16:3 1, radiologist was not present. Total fluoroscopic time of 16 seconds. The DAP for this procedure w as 0.149 mGym2. A total of 93 images sent to PACS from the exam. FINDINGS: The cystic duct has been injected. Mildly dilated biliary system. There are no intralumina l filling defects within or strictures of the common bile duct or opacified hepatic ducts. Forward f low of contrast confirmed into the duodenum. IMPRESSION: Mildly dilated but otherwise unremarkable biliary system. Reviewed, dictated and finalized at location B.
--- NOTE | ~2020-12-01 | XR_ITS ---
XR chest 2V 12/06/2020 20:46 Indication: Fever, cough and shortness of breath Procedure: 2 view chest Comparison: No prior studies for comparison. Findings: There is bibasilar pneumonia. Heart size normal. Small pleural effusions. No pneumothorax. No edema. Impression: 1: Bibasilar pneumonia with small pleural effusions. Reviewed, dictated and finalized at location A. Impression: 1: Bibasilar pneumonia with small pleural effusions.
--- NOTE | ~2020-12-01 | MR_ITS ---
EXAMINATION: MR MRCP wo/w con/w 3D wo ind DATE: 12/02/2020 07:44 INDICATION: Right upper quadrant pain, elevated liver function tests TECHNIQUE: Magnetic resonance imaging (MRI) of the abdomen was performed without and with intravenous contrast. Sequences included coronal T2-weighted SS-FSE ARC, coronal T2-weighted FS SS-FSE, coronal T2-weighted 2D FS FIESTA, Water:Coronal LAVA-Flex, sagittal T2-weighted SS-FSE ARC, axial SSFSE ARC, axial 3D DualEcho, axial DWI B=600, axial T1-weighted LAVA, FAT:Coronal LAVA-Flex, and coronal in and opposed phase LAVA-Flex. Thick-slab T2-weighted FRFSE-XL images were obtained for magnetic resonance cholangiopancreatography (MRCP). Maximum intensity projection 3-D reconstructions of the volumetric data were created by the technologist. Postcontrast sequences included a time course of axial T1-weig hted LAVA, FAT:Coronal LAVA-Flex, coronal in and opposed phase LAVA-Flex, and Water:Coronal LAVA-Flex . COMPARISON: CT from yesterday CONTRAST: Multihance, 15 cc FINDINGS: ABDOMEN MRI: The liver, spleen, pancreas, and adrenal glands are normal. Stones are present in the no ndistended gallbladder. The kidneys are unremarkable. There are no pathologically enlarged abdominal lymph nodes. No dilated loops of bowel are identified. There is no abnormal enhancement after contras t administration. ABDOMEN MRCP: There is mild intrahepatic and extrahepatic biliary dilatation. The common bile duct me asures up to 9 mm. There are two stones of the distal common bile duct. The pancreatic duct is normal in course and caliber. IMPRESSION: 1. Choledocholithiasis with mild intrahepatic and extrahepatic biliary dilatation. 2. Cholelithiasis without evidence of cholecystitis. Reviewed, dictated and finalized at location A. IMPRESSION: 1. Choledocholithiasis with mild intrahepatic and extrahepatic biliary dilatati on. 2. Cholelithiasis without evidence of cholecystitis.
--- NOTE | ~2020-12-01 | CT_ITS ---
EXAMINATION: CT abdomen pelvis w con INDICATION: Right upper quadrant pain TECHNIQUE: Computed tomographic images of the abdomen and pelvis were obtained after the administrati on of 100 cc of Omnipaque 350 intravenous contrast. The dose-length product (DLP) was 422.37 mGy-cm. Automated exposure control and iterative reconstruction technique were employed. COMPARISON: None available FINDINGS: Minimal dependent atelectasis is present in the lung bases. The heart size is normal. The l iver, spleen, pancreas, and adrenal glands are normal. Stones are present in the nondistended gallbla dder. There appears to be wall thickening of the gallbladder. The kidneys are unremarkable. No pathol ogically enlarged abdominal or pelvic lymph nodes are identified. There is no free intraperitoneal ga s or evidence of bowel obstruction. A large volume of colonic stool is present. IMPRESSION: 1. Cholelithiasis. Mild gallbladder wall thickening could reflect cholecystitis however the gallbladd er is not distended. Consider correlation with ultrasound. Reviewed, dictated and finalized at location A. IMPRESSION: 1. Cholelithiasis. Mild gallbladder wall thickening could reflect cholecystitis however the gallbladder is not distended. Consider correlation with ultrasound .
--- NOTE | 2020-12-01 03:38 | ED.GENADULT ---
HPI - General Adult General Chief complaint: Abdominal Pain Stated complaint: abd pain Time Seen by Provider: 12/01/20 03:23 History of Present Illness HPI narrative: Patient 20-year-old female presents the emergency department with chief complaint of right upper quadrant abdominal pain. Patient reports she was seen in the emergency department the other day with right-sided upper abdominal and right-sided chest pain. Patient had a CT angiography at that time that showed no evidence of pulmonary embolism. Patient some mildly elevated liver enzymes the patient was supposed to follow-up with her primary care physician. Patient has not followed up and reports that she is continued to eat a normal diet including eating chili the patient states that the pain got worse today the patient was concerned that she may have issues with her gallbladder. The patient denies fever denies chills patient denies any diarrhea. Related Data Home Medications Medication Instructions Recorded Confirmed Calcium 600 with Vitamin D3 1 tablet PO DAILY 09/21/20 10/05/20 PNV cmb#95-ferrous fumarate-FA 1 tablet PO DAILY 09/21/20 10/05/20 [] acyclovir 800 mg PO DAILY 09/21/20 10/05/20 cetirizine 10 mg PO DAILY 09/21/20 10/05/20 ferrous sulfate 325 mg PO DAILY 09/21/20 10/05/20 folic acid 1 mg PO DAILY 09/21/20 10/05/20 sertraline 50 mg PO DAILY 09/21/20 10/05/20 Allergies Allergy/AdvReac Type Severity Reaction Status Date / Time No Known Allergies Allergy Verified 12/01/20 03:32 Review of Systems Review of Systems: A 10 system review of systems was completed on the patient and is negative except for what is stated in the HPI. Nursing and ancillary documentation was reviewed. 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 HEAD: Normocephalic, atraumatic. EYES: PERRLA and EOMI. ENT: Nares clear, no rhinorrhea or epistaxis. Mucous membranes moist. NECK: Supple. CHEST: Clear to auscultation. No respiratory distress. HEART: Regular rate and rhythm. No murmur heard. Normal peripheral pulses. ABDOMEN: Soft, tender to palpation in the right upper quadrant, nondistended, normal active bowel sounds. EXTREMITIES: Normal range of motion. No edema. SKIN: Warm, dry, no rash. NEURO: No focal deficits. Alert and oriented x3. PSYCH: Normal mood and affect. Course Vital Signs Vital signs: Vital Signs Temperature 36.0 C L 12/01/20 03:13 Pulse Rate 64 12/01/20 03:13 Respiratory Rate 16 12/01/20 03:13 Blood Pressure 98/65 L 12/01/20 03:13 Pulse Oximetry 100 12/01/20 03:13 Temperature 36.0 C L 12/01/20 03:13 Pulse Rate 51 L 12/01/20 06:29 Respiratory Rate 17 12/01/20 06:29 Blood Pressure 110/67 12/01/20 06:29 Pulse Oximetry 96 12/01/20 06:29 Medical Decision Making Vital Signs
[2020-12-01] MEDS: SODIUM CHLORIDE 0.9% IV 1,000 ML 999 ML IV CONT (03:42)
[2020-12-01] MEDS: ONDANSETRON INJ 4 MG/2 ML VIAL IV PUSH (03:43)
[2020-12-01] MEDS: KETOROLAC 30 MG/ML VIAL (*BKC) IV PUSH (03:44)
[2020-12-01] MEDS: MORPHINE SULFATE (*CRX) 4 MG/ML INJ IV PUSH ×2 (03:45→19:39)
[2020-12-01 03:53] LABS: Basophils Percent Auto 0.6 % (0.2-1.2); Eosinophils Absolute Auto 0.2 K/mm3 (0-0.3); Eosinophils Percent Auto 4.1 % (0-4.4); Hematocrit 40.1 % (37.0-47.0); Hemoglobin 13.5 g/dL (12.0-15.0); Immature Granulocyte Absolute 0.01 K/mm3 (0.00-0.031); Immature Granulocyte Percent A 0.2 % (0-0.5); Lymphocytes Absolute Auto 1.14 K/mm3 (0.9-3.2); Lymphocytes Percent Auto 23.2 % (18.3-44.2); Mean Corpuscular HGB Conc 33.7 g/dl (32-36); Mean Corpuscular Hemoglobin 29.5 pg (26-34); Mean Corpuscular Volume 87.6 fl (80-100); Mean Platelet Volume 10.2 fl (7.4-10.4); Monocytes Absolute Auto 0.3 K/mm3 (0.1-0.6); Monocytes Percent Auto 5.9 % (2.6-8.5); Neutrophils Absolute Auto 3.2 K/mm3 (1.3-6.7); Platelet Count Result 244 k/mm3 (150-375); Red Blood Count 4.58 M/mm3 (4.2-5.4); Red Cell Distribution Width 13.8 % (11.5-14.5); White Blood Count 4.9 K/mm3 (4.5-10.0)
[2020-12-01 04:02] LABS: Add Urine Microscopic? YES; Appearance Urine Cloudy (Clear); Bacteria Urine Trace /hpf; Bilirubin Urine 1+ (Negative); Color Urine Amber (Yellow); Glucose Urine UA Negative (Negative); Ketones Urine Negative (Negative); Leukocyte Esterase Ur Negative LEU/UL (Negative); Mucus Urine Rare /lpf; Nitrate Urine Negative (Negative); Protein Urine Negative (Negative); RBC Urine 0-2 /hpf (0-2); Specific Grav Ur 1.028 (1.001-1.035); Squamous Epithelial Cell Urine Many /hpf (Few); Transitional Epi Cells Urine Rare /hpf (None Seen)
[2020-12-01 04:06] LABS: Blood Urine Negative (Negative)
[2020-12-01 04:22] LABS: Albumin Level 4.7 g/dL (3.5-5.1); Alkaline Phosphatase 320 U/L (38-126); Anion Gap 10 mmol/L (8-16); Bilirubin,Total 4.2 mg/dL (0.2-1.3); Blood Urea Nitrogen 11 mg/dL (7-17); Calcium 10.3 mg/dL (8.4-10.2); Carbon Dioxide 26 mmol/L (22-30); Chloride 105 mmol/L (98-107); Estimated CRCL calculation 100 ml/min; Estimated Glomerular Filt Rate > 60; Glucose 99 mg/dL (65-110); Potassium 4.1 mmol/L (3.4-5.0); Sodium 141 mmol/L (137-145)
[2020-12-01 04:24] LABS: Alanine Aminotransferase 1186 U/L (4-35); Aspartate Amino Transferase 785 U/L (14-36); Lipase 2847 U/L (23-300)
[2020-12-01] MEDS: MORPHINE SULFATE (*CRX) 4 MG/ML INJ (07:48)
--- NOTE | 2020-12-01 07:49 | PM.IMHP ---
H&P: HPI History of Present Illness Date/Time: 12/01/20 07:49 Chief Complaint: S: Right upper quadrant pain Narrative: Patient 20-year-old female presents the emergency department with chief complaint of right upper quadrant abdominal pain. Patient reports she was seen in the emergency department the other day with right-sided upper abdominal and right-sided chest pain. Patient had a CT angiography at that time that showed no evidence of pulmonary embolism. Patient some mildly elevated liver enzymes the patient was supposed to follow-up with her primary care physician. Patient has not followed up and reports that she is continued to eat a normal diet including eating chili the patient states that the pain got worse today the patient was concerned that she may have issues with her gallbladder. The patient denies fever denies chills patient denies any diarrhea. Review of Systems Review of Systems: All systems reviewed & are unremarkable except as noted in HPI and below Eyes: Eyes: Reports no additional eye complaints ENT: Reports system reviewed and no additional complaints, except as documented Cardiovascular: Cardiovascular: Reports no additional cardiovascular complaints Respiratory: Respiratory: Reports no additional respiratory complaints Gastrointestinal: Gastrointestinal: Reports abdominal pain, Denies nausea and Denies vomiting Genitourinary: Genitourinary: Reports no additional female genitourinary complaints Musculoskeletal: Musculoskeletal: Reports no additional musculoskeletal complaints Integumentary/Breasts: Skin/Breast: Reports system reviewed and no additional complaints, except as docu Neurologic: Reports system reviewed and no additional complaints, except as documented Psychiatric: Psychiatric: Reports no additional psychiatric complaints [facility] Past Medical History Medical History (Updated 12/01/20 @ 13:39 by Zach Quiros MD) Anemia Chronic idiopathic constipation Depression Elevated liver enzymes Gallstone pancreatitis History of miscarriage 09-05-2017, 9.5 wks Homozygous MTHFR mutation C677T Post-term RUQ pain Surgical History Surgical History H/O dilation and curettage Suction dilation & curettage (surg) : 09-05-2017 Family History Family History Grandparent Diabetes mellitus Depression Hypertension Mother Depression Father Hypertension Social History Social History Smoking status: Never smoker Second hand tobacco smoke exposure: No Alcohol intake: never Substance use: never Substance use type: does not use 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 Gender identity (if verbalized by the patient): Female Sexual Orientation (if Verbalized by the Patient): Straight or Heterosexual Spiritual care concerns: No Agree to blood products: Yes Meds Home Medications and Allergies Home Medications Medication Instructions Recorded Confirmed Type Calcium 600 with Vitamin D3 1 tablet PO QPM 09/21/20 12/01/20 History PNV cmb#95-ferrous fumarate-FA 1 tablet PO HS 09/21/20 12/01/20 History [] acyclovir 800 mg PO HS 09/21/20 12/01/20 History cetirizine 10 mg PO DAILY 09/21/20 12/01/20 History ferrous sulfate 325 mg PO HS 09/21/20 12/01/20 History folic acid 2 mg PO BID 09/21/20 12/01/20 History sertraline 50 mg PO DAILY 09/21/20 12/01/20 History ondansetron 4 mg PO Q6H PRN #10 tablet 11/29/20 12/01/20 Rx aspirin 81 mg PO DAILY 12/01/20 12/01/20 History drospirenone (contraceptive) 4 mg PO DAILY 12/01/20 12/01/20 History [Slynd] escitalopram oxalate 10 mg PO DAILY 12/01/20 12/01/20 History Allergies Allergy/AdvReac Type Severity Reaction Status Date / Time No Known Allergies Allergy Verified 12/01/20 09:38 Vital Signs
[2020-12-01] MEDS: SODIUM CHLORIDE 0.9% IV 1,000 ML 125 ML IV CONT ×2 (09:34→20:37)
--- NOTE | 2020-12-01 13:33 | WPDGICN ---
Assessment and Plan Assessment and plan (1) Gallstone pancreatitis: Code(s): K85.10 - Biliary acute pancreatitis without necrosis or infection Status: Acute Assessment and Plan: worsening elevated liver enzymes with cholelithiasis and pancreatitis MRCP ordered to check for bile duct stones and if present then will need ERCP, continue to monitor liver enzymes surgery to see patient, will need lap isabella ok to have CL diet for now (2) Elevated liver enzymes: Code(s): R74.8 - Abnormal levels of other serum enzymes Status: Acute Assessment and Plan: continue to monitor GS pancreatitis (3) RUQ pain: Code(s): R10.11 - Right upper quadrant pain Status: Acute (4) Nausea: Code(s): R11.0 - Nausea Status: Inactive Assessment and Plan: improved (5) Post-term : Code(s): O48.0 - Post-term Status: Acute Assessment and Plan: she is , she has a healthy baby at home GI Consult Note Consult date/time: 12/01/20 13:33 Reason for consult: GS pancreatitis, elevated liver enzymes HPI: Mary Newberry is a 20 year old female with no major medical problems, she gave healthy baby about 2 months ago. Few days ago had new onset pain in upper abdomen with nausea for which she came to ER, found to have elevated transaminases 90-170, normal bili and lipase, had CTA chest negative for PE and sent home. Pain came back again in RUQ and epigastric area, severe and did not go away then returned to ER. She had CT a/p that was reviewed, showed cholelithiasis, mild gallbladder wall thickening could reflect cholecystitis however the gallbladder is not distended and more elevated liver enzymes with transaminases 700-1000, bili 4, high lipase and admitted to hospital. Better after pain meds and she is comfortable now. Denies previous problem with GB. No h/o alcohol abuse or previous pancreatitis. Review of Systems Constitutional: Constitutional: Denies chills Eyes: Eyes: Denies blurry vision ENT: Reports Normal hearing present Cardiovascular: Cardiovascular: Denies chest pain Respiratory: Respiratory: Denies dyspnea Gastrointestinal: Gastrointestinal: Reports abdominal pain and Reports nausea Genitourinary: Genitourinary: Denies hematuria Musculoskeletal: Musculoskeletal: Denies neck pain Integumentary/Breasts: Skin/Breast: Denies dry skin Neurologic: Denies headache(s) Psychiatric: Psychiatric: Denies behavioral changes PMFSH Past Medical History Medical History (Updated 12/01/20 @ 13:39 by Zach Quiros MD) Anemia Chronic idiopathic constipation Depression Elevated liver enzymes Gallstone pancreatitis History of miscarriage 09-05-2017, 9.5 wks Homozygous MTHFR mutation C677T Post-term RUQ pain Surgical History Surgical History H/O dilation and curettage Suction dilation & curettage (surg) : 09-05-2017 Family History Family History Grandparent Diabetes mellitus Depression Hypertension Mother Depression Father Hypertension Social History Social History Smoking status: Never smoker Second hand tobacco smoke exposure: No Alcohol intake: never Substance use: never Substance use type: does not use 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
--- NOTE | 2020-12-01 18:22 | PM.CNGS ---
Assessment and Plan Assessment and plan (1) Post-term : Code(s): O48.0 - Post-term Status: Acute Assessment and Plan: The patient is 2 months . She is nursing at this time. (2) Elevated liver enzymes: Code(s): R74.8 - Abnormal levels of other serum enzymes Status: Acute Assessment and Plan: Possibly related to gallstones passing into the common bile duct, (3) Gallstone pancreatitis: Code(s): K85.10 - Biliary acute pancreatitis without necrosis or infection Status: Acute Assessment and Plan: Passage of sludge or stones possibly give rise to this. Therefore, I agree with proceeding with MRCP evaluate pancreas gallbladder and bile ducts. (4) Depression: Code(s): F32.9 - Major depressive disorder, single episode, unspecified Status: Acute Assessment and Plan: on medications (5) Chronic cholecystitis with calculus: Code(s): K80.10 - Calculus of gallbladder with chronic cholecystitis without obstruction Status: Acute Assessment and Plan: This is the main reason I was asked to see the patient. Since she does have pancreatitis we will wait the resolution of it to some degree. Agree with MRCP to rule out choledocholithiasis. CT scan apparently did not suggest this (see report). There was some mild gallbladder wall thickening noted on CT. History of Present Illness Consult details Consult date: 12/01/20 Reason for consult: abdominal pain Requesting physician: Carri Rodriguez MD Narrative: The patient is a 20-year-old white female who presented to the [place] emergency department early this AM with the chief complaint of right upper quadrant abdominal pain. Patient reports she was seen in the emergency department the other day with right-sided upper abdominal and right-sided chest pain. Patient had a CT angiography of the chest at that time that showed no evidence of pulmonary embolism. She also was noted to have some mildly elevated liver enzymes and the patient was supposed to follow-up with her primary care physician. Patient has not followed upl yet and today reports that she has continued to eat a normal diet. This included eating chili and white rice over the last two days. The patient states that the pain got worse At about 11 last night so she was concerned that she may have issues with her gallbladder. Workup in the emergency room early this morning including a CT scan of the abdomen and pelvis which revealed cholelithiasis with mild thickening of the gallbladder wall and no significant inflammation of the pancreas. However, her labs showed a significant elevation of total bilirubin at 4.2 and a of lipase at greater than 2000. Therefore, the patient was admitted to the hospitalist service and I was asked to consult regarding her gallstone pancreatitis. The patient denies fever denies chills patient denies any diarrhea. Review of Systems Review of Systems: All systems reviewed & are unremarkable except as noted in HPI and below (HPI) Constitutional: Constitutional: Reports as per HPI, Denies chills and Denies fever(s) Eyes: Eyes: Reports no additional eye complaints ENT: Reports Normal hearing present and Denies dizziness Cardiovascular: Cardiovascular: Reports no additional cardiovascular complaints, Denies chest pain and Denies irregular heart rhythm Respiratory: Respiratory: Reports no additional respiratory complaints Gastrointestinal: Gastrointestinal: Reports no additional gastrointestinal complaints, Denies abdominal pain ( Improve since pain medicine in the ED.) and Denies bloating Comments: did not previously know that she had gallstones. Does not typically use alcohol. No previous episodes of pancreatitis Genitourinary: Genitourinary: Denies hematuria Comments: First baby was born 2 months ago and the patient is nursing. 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 Mus
[2020-12-02] VITALS: O2SAT 100
[2020-12-02] MEDS: SODIUM CHLORIDE 0.9% IV 1,000 ML 125 ML IV CONT ×2 (05:18→17:50)
[2020-12-02] MEDS: MORPHINE SULFATE (*CRX) 4 MG/ML INJ IV PUSH ×3 (05:22→17:51)
[2020-12-02 06:00] VITALS: BP 101/58; PULSE 53; RESP 12; TEMP 36.4; O2SAT 99
[2020-12-02 06:16] LABS: Basophils Percent Auto 0.8 % (0.2-1.2); Eosinophils Absolute Auto 0.2 K/mm3 (0-0.3); Eosinophils Percent Auto 6.6 % (0-4.4); Hematocrit 35.9 % (37.0-47.0); Hemoglobin 11.6 g/dL (12.0-15.0); Immature Granulocyte Absolute 0.01 K/mm3 (0.00-0.031); Immature Granulocyte Percent A 0.3 % (0-0.5); Lymphocytes Absolute Auto 1.62 K/mm3 (0.9-3.2); Lymphocytes Percent Auto 44.8 % (18.3-44.2); Mean Corpuscular HGB Conc 32.3 g/dl (32-36); Mean Corpuscular Hemoglobin 28.8 pg (26-34); Mean Corpuscular Volume 89.1 fl (80-100); Mean Platelet Volume 10.4 fl (7.4-10.4); Monocytes Absolute Auto 0.3 K/mm3 (0.1-0.6); Monocytes Percent Auto 6.9 % (2.6-8.5); Neutrophils Absolute Auto 1.5 K/mm3 (1.3-6.7); Neutrophils Percent Auto 40.6 % (45.5-73.1); Platelet Count Result 212 k/mm3 (150-375); Red Blood Count 4.03 M/mm3 (4.2-5.4); White Blood Count 3.6 K/mm3 (4.5-10.0)
[2020-12-02 06:29] LABS: Alanine Aminotransferase 693 U/L (4-35); Albumin Level 3.5 g/dL (3.5-5.1); Alkaline Phosphatase 233 U/L (38-126); Anion Gap 6 mmol/L (8-16); Aspartate Amino Transferase 240 U/L (14-36); Bilirubin,Total 1.7 mg/dL (0.2-1.3); Blood Urea Nitrogen 5 mg/dL (7-17); Calcium 8.8 mg/dL (8.4-10.2); Carbon Dioxide 24 mmol/L (22-30); Chloride 110 mmol/L (98-107); Estimated CRCL calculation 115 ml/min; Estimated Glomerular Filt Rate > 60; Glucose 87 mg/dL (65-110); Lipase 75 U/L (23-300); Magnesium 1.7 mg/dL (1.6-2.3); Potassium 3.8 mmol/L (3.4-5.0); Sodium 140 mmol/L (137-145)
--- NOTE | 2020-12-02 08:12 | PM.IMPN ---
Progress Note: A&P Assessment and Plan (1) Choledocholithiasis with acute cholecystitis with obstruction: Code(s): K80.43 - Calculus of bile duct with acute cholecystitis with obstruction Status: Acute Assessment and Plan: Patient presented with a classic right upper quadrant pain. Pain was not associated with nausea or vomiting. On the CT abdomen pelvis, cholelithiasis, mild gallbladder wall thickening likely reflecting cholecystitis were found. Liver function tests were elevated with a high lipase. Total bilirubin is 4.2, AST 785, ALT 1186, alk-phos 320. Lipase is 2847. GI was consulted. MRCP ordered to check for bile duct stones and if present then will need ERCP, continue to monitor liver enzymes Patient is scheduled for laparoscopic cholecystectomy. Patient was started on a clear liquid diet. she is improving symptomatically. LFTs are coming down with a total bilirubin of 1.7, AST 240, ALT 693, and alkaline phosphatase 233. Diet was advanced to a full liquid diet, and patient will be NPO after midnight in anticipation of her laparoscopic surgery. (2) Gallstone pancreatitis: Code(s): K85.10 - Biliary acute pancreatitis without necrosis or infection Status: Acute Assessment and Plan: The pancreatitis is likely secondary to gallstones, possibly related to obstruction of the ampulla secondary to stone or sludge. Cholecystectomy is indicated to prevent recurrence. The patient was will be managed with fluid replacement, pain control, clinical monitoring. (3) Depression: Code(s): F32.9 - Major depressive disorder, single episode, unspecified Status: Acute Assessment and Plan: Continue home medications. (4) Post-term : Code(s): O48.0 - Post-term Status: Acute Assessment and Plan: Patient is currently nursing. she had just finished breast pumping. Subjective Date/time seen: 12/02/20 08:12 S: Patient is examined at the bedside. She is feeling a lot better. Abdominal pain is improving with clear liquid diet. MR CT was performed, result is pending at the time of this dictation. Patient is still nursing a baby at home. Review of Systems Review of Systems: All systems reviewed & are unremarkable except as noted in HPI and below Constitutional: Constitutional: Reports no additional constitutional complaints, Denies anorexia and Denies poor appetite Eyes: Eyes: Reports no additional eye complaints ENT: Reports system reviewed and no additional complaints, except as documented and Denies epistaxis Cardiovascular: Cardiovascular: Reports no additional cardiovascular complaints, Reports chest pain at rest, Reports pedal edema, Reports dyspnea on exertion and Reports orthopnea Respiratory: Respiratory: Reports no additional respiratory complaints, Denies chest congestion, Denies cough and Denies pain on inspiration Gastrointestinal: Gastrointestinal: Reports abdominal pain, Denies nausea and Denies vomiting Genitourinary: Genitourinary: Reports no additional female genitourinary complaints Musculoskeletal: Musculoskeletal: Reports no additional musculoskeletal complaints Integumentary/Breasts: Skin/Breast: Reports system reviewed and no additional complaints, except as docu Neurologic: Reports system reviewed and no additional complaints, except as documented Psychiatric: Psychiatric: Reports no additional psychiatric complaints Endocrine: Endocrine: Reports no additional endocrine complaints Hematologic/Lymphatic: Hematologic/Lymphatic: Reports no additional hematologic/lymphatic complaints Allergic/Immunologic: Allergic/Immunologic: Reports no additional allergic/immunologic complaints Exam Const: General: comfortable and no acute distress HENMT: Mouth: Yes Abnormal oral and palatal mucosa present Eyes: Pupils: Equal, round and reactive pupils present EOM: EOMs intact bilaterally Neck: Neck: no JVD Resp: Effort
--- NOTE | 2020-12-02 09:02 | WPDGIPROGNO ---
Progress Note: A&P Assessment and Plan (1) Chronic cholecystitis with calculus: Code(s): K80.10 - Calculus of gallbladder with chronic cholecystitis without obstruction Status: Acute Assessment and Plan: liver enzymes trending down just completed MRCP this morning, if stone in bile duct then ercp tomorrow- if stone passed then only will need lap isabella (already discussed with surgery) and awaiting on final MRI reading liquid diet now and npo after midnight (2) Gallstone pancreatitis: Code(s): K85.10 - Biliary acute pancreatitis without necrosis or infection Status: Acute (3) Elevated liver enzymes: Code(s): R74.8 - Abnormal levels of other serum enzymes Status: Acute Assessment and Plan: slowly trending down pending MRCP result (4) Post-term : Code(s): O48.0 - Post-term Status: Acute (5) RUQ pain: Code(s): R10.11 - Right upper quadrant pain Status: Acute Subjective Date/time seen: 12/02/20 09:02 Interval history: she had some ruq pain last night, now comfortable and just finished breast pumping Review of Systems Review of Systems: All systems reviewed & are unremarkable except as noted in HPI and below Exam Const: General: comfortable and no acute distress HENMT: General nose exam: Normal nares present Eyes: General: appearance normal, both eyes and all related structures Neck: Neck: no JVD Resp: Auscultation: clear to auscultation bilaterally Cardio: Rate: regular rate Rhythm: regular rhythm GI: Inspection: non-distended GI Palp: Yes Soft to palpation and Yes Tenderness to palpation present (GI) (mild ttp in ruq, no rebound) Auscultation: normal bowel sounds Skin: General skin exam: normal color and no rashes or lesions noted Neuro: Speech: normal speech Motor exam (neuro): Normal motor muscle tone present throughout Extrem: General: normal to inspection Psych: Mental Status: mental status grossly normal Objective Data Vital Signs Vital Signs: Vital Signs - 24 hr 12/01/20 09:18 12/01/20 14:00 12/01/20 20:00 Temperature 96.6 F L 96.2 F L 97.8 F Pulse Rate 57 L 51 L 60 Respiratory Rate 16 16 12 Blood Pressure 107/71 99/49 L 97/51 L Pulse Oximetry 100 97 99 12/02/20 00:00 12/02/20 06:00 Temperature 97.6 F Pulse Rate 53 L Respiratory Rate 12 Blood Pressure 101/58 L Pulse Oximetry 100 99 Intake/Output Intake/Output: Intake & Output 11/29/20 11/30/20 12/01/20 12/02/20 23:59 23:59 23:59 23:59 Intake Total 3120 1050 Output Total 600 Balance 2520 1050 Meds/Results Medications: Active Medications Generic Name Dose Route Start Last Admin Trade Name Freq PRN Reason Stop Dose Admin Piperacillin/Tazobactam/Dextrose 3.375 gm in 50 mls @ 100 mls/hr 12/01/20 12:00 12/02/20 05:50 Zosyn 3.375 Gm/D5w 50ml Pm IVPB Infused Q6H JOSE Infusion Sodium Chloride 1,000 mls @ 125 mls/hr 12/01/20 06:40 12/02/20 05:18 Normal Saline Iv IV CONT 125 mls/hr .Q8H JOSE Administration Morphine Sulfate 4 mg 12/01/20 06:36 12/02/20 05:22 Morphine Sulfate (*Crx) 4 Mg/Ml Inj IV PUSH 4 mg Q2H PRN Administration Pain Rated 7-10 Ondansetron HCl 4 mg 12/01/20 06:36 Ondansetron Inj 4 Mg/2 Ml Vial IV PUSH Q4H PRN Nausea Radiology Results: ITS Impressions Abdomen/Pelvis CT 12/01/20 10:03 IMPRESSION: 1. Cholelithiasis. Mild gallbladder wall thickening could reflect cholecystitis however the gallbladder is not distended. Consider correlation with ultrasound. Labs Labs: Laboratory Results - last 24 hr 12/02/20 12/02/20 05:36 05:36 WBC 3.6 L RBC 4.03 L Hgb 11.6 L Hct 35.9 L MCV 89.1 MCH 28.8 MCHC 32.3 RDW 14.0 Plt Count 212 MPV 10.4 Immature Gran % (Auto) 0.3 Neut % (Auto) 40.6 L Lymph % (Auto) 44.8 H [place] % (Auto) 6.9 Eos % (Auto) 6.6 H Baso % (Auto) 0.8 Lymph # (Auto) 1.62 [place] # (
[2020-12-02 14:00] VITALS: BP 115/74; PULSE 77; RESP 16; TEMP 36.9; O2SAT 99
--- NOTE | 2020-12-02 14:05 | PM.PNGS ---
Progress Note: A&P Assessment and Plan (1) Chronic cholecystitis with calculus: Onset Date: ~11/2020 Code(s): K80.10 - Calculus of gallbladder with chronic cholecystitis without obstruction Status: Acute Assessment and Plan: MRCP result noted above. Will await ERCP results that is planned by Dr. Pollock for tomorrow Have discussed with the patient possibly proceeding with laparoscopic cholecystectomy after that in order to remove the source of the stones that probably caused her pancreatitis , right upper quadrant pain, and elevated liver enzymes. (2) Chronic cholecystitis due to cholelithiasis with choledocholithiasis: Onset Date: ~11/2020 Code(s): K80.64 - Calculus of gallbladder and bile duct with chronic cholecystitis without obstruction Status: Acute Assessment and Plan: MRCP does not show obvious inflammation of the gallbladder and 2 stones in the distal common bile duct. (3) Post-term : Onset Date: ~09/2020 Code(s): O48.0 - Post-term Status: Acute (4) Elevated liver enzymes: Onset Date: ~11/2020 Code(s): R74.8 - Abnormal levels of other serum enzymes Status: Acute Assessment and Plan: Improved today Lipase is also improved (5) Gallstone pancreatitis: Onset Date: ~11/2020 Code(s): K85.10 - Biliary acute pancreatitis without necrosis or infection Status: Resolved Assessment and Plan: lipase down to 75 today. Patient still having some midback pain that could be associated with this. Await results of ERCP planned for tomorrow. (6) Depression: Onset Date: Unknown Code(s): F32.9 - Major depressive disorder, single episode, unspecified Status: Acute Assessment and Plan: Okay to have home meds. Additional Plan have provided patient with an information sheet on laparoscopic cholecystectomy and low-fat diet. Will discuss these further with her through the hospital stay. Subjective Subjective Date/Time Seen: 12/02/20 09:05 Patient reports: no new complaints Interval history: Patient states that earlier this morning she did have some mild lower thoracic level back pain. Otherwise she has been fairly pain free and tolerated a low-fat liquid diet last evening. When I saw her she had just come back from having her MRCP. She has been able to get up and walk in the hallways. Review of Systems Review of Systems: All systems reviewed & are unremarkable except as noted in HPI and below Constitutional: Constitutional: Reports as per HPI, Denies chills and Denies fever(s) Cardiovascular: Cardiovascular: Denies chest pain and Denies dyspnea Respiratory: Respiratory: Reports no additional respiratory complaints and Denies dyspnea Gastrointestinal: Gastrointestinal: Reports as per HPI, Denies bloating, Denies nausea and Denies vomiting Musculoskeletal: Musculoskeletal: Reports no additional musculoskeletal complaints Neurologic: Denies memory loss Psychiatric: Psychiatric: Denies anxiety and Denies memory loss Exam Const: General: cooperative, comfortable, alert and awake Orientation/consciousness: patient oriented x3 HENMT: Head: normal to inspection Mouth: Yes moist mucous membranes Eyes: Sclera: sclerae normal Pupils: Equal, round and reactive pupils present Neck: Neck: normal visual inspection and no JVD Chest: Chest palpation & inspection: normal inspection of the chest Resp: Effort & Inspection: normal respiratory effort Auscultation: clear to auscultation bilaterally Cardio: Jugular venous distension: no JVD Rate: regular rate Rhythm: regular rhythm GI: Inspection: normal to inspection and no scars GI Palp: Yes Soft to palpation and No Tenderness to palpation present (GI) Auscultation: normal bowel sounds Rectal Exam: deferred Neuro: General: patient oriented x3 Cranial nerves: Yes Equal, round and reactive pupils present Psyc
[2020-12-02 19:52] VITALS: O2SAT 97
[2020-12-02 22:00] VITALS: BP 124/78; PULSE 53; RESP 12; TEMP 36.6; O2SAT 100
[2020-12-03] VITALS (10 sets, daily range): BP systolic 112–137; BP diastolic 58–90; PULSE 47–100; RESP 12–26; TEMP 36.1–36.6; O2SAT 98–100
[2020-12-03] MEDS: MORPHINE SULFATE (*CRX) 4 MG/ML INJ IV PUSH ×2 (02:35→20:57)
[2020-12-03] MEDS: SODIUM CHLORIDE 0.9% IV 1,000 ML 125 ML IV CONT ×2 (04:09→17:26)
[2020-12-03 06:56] LABS: Alanine Aminotransferase 595 U/L (4-35); Albumin Level 3.8 g/dL (3.5-5.1); Alkaline Phosphatase 241 U/L (38-126); Anion Gap 6 mmol/L (8-16); Aspartate Amino Transferase 182 U/L (14-36); Bilirubin,Total 1.1 mg/dL (0.2-1.3); Blood Urea Nitrogen 5 mg/dL (7-17); Calcium 9.3 mg/dL (8.4-10.2); Carbon Dioxide 27 mmol/L (22-30); Chloride 108 mmol/L (98-107); Estimated CRCL calculation 115 ml/min; Estimated Glomerular Filt Rate > 60; Glucose 99 mg/dL (65-110); Potassium 3.9 mmol/L (3.4-5.0); Sodium 141 mmol/L (137-145)
--- NOTE | 2020-12-03 12:15 | PM.IMPN ---
Progress Note: A&P Assessment and Plan (1) Choledocholithiasis with acute cholecystitis with obstruction: Code(s): K80.43 - Calculus of bile duct with acute cholecystitis with obstruction Status: Deleted Assessment and Plan: presented with a classic right upper quadrant pain, was not associated with nausea or vomiting CT abdomen pelvis, cholelithiasis, mild gallbladder wall thickening likely reflecting cholecystitis were found. Liver function tests were elevated with a high lipase. Total bilirubin is 4.2, AST 785, ALT 1186, alk-phos 320. Lipase is 2847. GI was consulted. MRCP ordered to check for bile duct stones ERCP schedule for today continue to monitor liver enzymes scheduled for laparoscopic cholecystectomy tomorrow LFTs are coming down with a total bilirubin of 1.1, AST 182, ALT 595, and alkaline phosphatase 241. NPO after midnight for lapchole (2) Gallstone pancreatitis: Onset Date: ~11/2020 Code(s): K85.10 - Biliary acute pancreatitis without necrosis or infection Status: Resolved Assessment and Plan: pancreatitis is likely secondary to gallstones, possibly related to obstruction of the ampulla secondary to stone or sludge. Cholecystectomy is indicated to prevent recurrence managed with fluid replacement, pain control, clinical monitoring (3) Depression: Onset Date: Unknown Code(s): F32.9 - Major depressive disorder, single episode, unspecified Status: Acute Assessment and Plan: Continue home medications (4) Post-term : Onset Date: ~09/2020 Code(s): O48.0 - Post-term Status: Acute Assessment and Plan: Patient is currently nursing Subjective Date/time seen: 12/03/20 12:15 Interval history: Date/Time: 12/01/20 07:49 Narrative: Patient 20-year-old female presents the emergency department with chief complaint of right upper quadrant abdominal pain. Patient reports she was seen in the emergency department the other day with right-sided upper abdominal and right-sided chest pain. Patient had a CT angiography at that time that showed no evidence of pulmonary embolism. Patient some mildly elevated liver enzymes the patient was supposed to follow-up with her primary care physician. Patient has not followed up and reports that she is continued to eat a normal diet including eating chili the patient states that the pain got worse today the patient was concerned that she may have issues with her gallbladder. The patient denies fever denies chills patient denies any diarrhea. Date/time seen: 12/02/20 08:12 S: Patient is examined at the bedside. She is feeling a lot better. Abdominal pain is improving with clear liquid diet. MR CT was performed, result is pending at the time of this dictation. Patient is still nursing a baby at home. date and time Seen 12/02/2020 at 12:15 a.m. patient stated that she is feeling better today. She does still have the pain when she is palpated however it is improving. She is maintaining with a clear liquid diet. Patient currently NPO for ERCP that is scheduled today. Patient denies chest pain, shortness of breath, fevers, sweats, chills. Review of Systems Review of Systems: All systems reviewed & are unremarkable except as noted in HPI and below Exam Const: General: comfortable and no acute distress HENMT: Mouth: Yes Abnormal oral and palatal mucosa present Eyes: Pupils: Equal, round and reactive pupils present EOM: EOMs intact bilaterally Neck: Neck: no JVD Resp: Effort & Inspection: normal respiratory effort Auscultation: clear to auscultation bilaterally Cardio: Rate: regular rate Rhythm: regular rhythm GI: Inspection: non-distended Auscultation: normal bowel sounds : Other: Deferred. Skin: General skin exam: normal color and no rashes or lesions noted Neuro: Cranial nerves: Yes Equ
--- NOTE | 2020-12-03 12:31 | PM.PNGS ---
Progress Note: A&P Assessment and Plan (1) Chronic cholecystitis due to cholelithiasis with choledocholithiasis: Onset Date: ~11/2020 Code(s): K80.64 - Calculus of gallbladder and bile duct with chronic cholecystitis without obstruction Status: Acute Assessment and Plan: MRCP showed 2 stones in the distal CBD. GI following and planned ERCP today. Will await results. Patient is tentatively on the schedule for a laparoscopic cholecystectomy by Dr. Haskins tomorrow. We briefly discussed the surgery and expected recovery today and she did not have any questions after her discussion with Dr. Haskins. (2) Gallstone pancreatitis: Onset Date: ~11/2020 Code(s): K85.10 - Biliary acute pancreatitis without necrosis or infection Status: Resolved Assessment and Plan: Abdominal pain improving. Lipase yesterday was normal. Awaiting ERCP results today. (3) Post-term : Onset Date: ~09/2020 Code(s): O48.0 - Post-term Status: Acute Assessment and Plan: Nearly 2 months post- and . Discussed pumping and dumping today, which she reports she has been doing since being hospitalized. She has a good supply at home stored up for baby. (4) Elevated liver enzymes: Onset Date: ~11/2020 Code(s): R74.8 - Abnormal levels of other serum enzymes Status: Acute Assessment and Plan: Trended down further today. Planned ERCP today. Additional Plan I have discussed the patient's case and plan of care with Dr. Haskins. Subjective Subjective Date/Time Seen: 12/03/20 12:31 Patient reports: feels better, pain is less and afebrile Interval history: This is a 20-year-old female who presented with abdominal pain and elevated LFTs, found to have acute biliary pancreatitis and choledocholithiasis with chronic cholecystitis. She is planning to undergo an ERCP today by GI. She was seen and examined on the medical floor today. She has been NPO during the day for planned procedure. She denies any nausea or vomiting. She reports still having some upper abdominal pain that radiates to her mid back. No other complaints at this time. She has spoke to Dr. Haskins regarding the laparoscopic cholecystectomy and has no further questions at this time. Review of Systems Review of Systems: All systems reviewed & are unremarkable except as noted in HPI and below Exam Const: General: comfortable, no acute distress, alert and awake Orientation/consciousness: patient oriented x3 Resp: Auscultation: clear to auscultation bilaterally Cardio: Rate: regular rate Rhythm: regular rhythm GI: Inspection: normal to inspection, non-distended and striae GI Palp: Yes Soft to palpation, Yes Tenderness to palpation present (GI) (Across the upper abdomen), No Guarding due to palpation present (GI) and No Rebound tenderness present Auscultation: normal bowel sounds Extrem: General: normal to inspection Right lower extremity: no edema Psych: Mental Status: mental status grossly normal Insight: Good insight present (Psych) Judgement: Good judgement present (Psych) Objective Data Vital Signs Vital Signs: Vital Signs - 24 hr 12/02/20 14:00 12/02/20 19:52 12/02/20 22:00 Temperature 98.4 F 97.8 F Pulse Rate 77 53 L Respiratory Rate 16 12 Blood Pressure 115/74 124/78 Pulse Oximetry 99 97 100 12/03/20 05:21 Temperature 97.2 F L Pulse Rate 47 L Respiratory Rate 12 Blood Pressure 112/58 L Pulse Oximetry 98 Intake/Output Intake/Output: Intake & Output 11/30/20 12/01/20 12/02/20 12/03/20 23:59 23:59 23:59 23:59 Intake Total 3120 2830 1100 Output Total 600 850 Balance 2520 1980 1100 Meds/Results Medications: Active Medications Generic Name Dose Route Start Last Admin Trade Name Freq PRN Reason Stop Dose Admin Piperacillin/Tazobactam/Dextrose 3.375 gm in 50 mls @ 100 mls/hr 12/01/20 12:00 12/03/20 11:56 Zosyn 3.375 Gm/D5w
[2020-12-03] MEDS: LACTATED RINGERS 1,000 ML 150 ML IV CONT (13:21)
--- NOTE | 2020-12-03 13:39 | WPDANESEPPF ---
Anes - Initial Pre Proc Eval Procedure: Operation Date: 12/03/20 13:30 Proposed Procedures p Endoscopic Retro Cholangiopancreatogram - Zach Quiros MD Operation Date: 12/04/20 14:30 Proposed Procedures p Laparoscopic Cholecystectomy with Intra Operative Cholangiogram, Possible Open - Santos Haskins MD Date/Time: 12/03/20 13:39 Surgeon: Dulce Larose DO Pre Op Diagnosis: Choledocholithiasis with acute cholecystitis pancr Patient Data Age: 20 Gender: F Height: 1.65 m Weight: 79 kg Last Vital Signs Temp 97.3 F L 12/03/20 13:18 Pulse 51 L 12/03/20 13:18 Resp 18 12/03/20 13:18 BP 125/66 12/03/20 13:18 Pulse Ox 100 12/03/20 13:18 Allergies Allergy/AdvReac Type Severity Reaction Status Date / Time No Known Allergies Allergy Verified 12/03/20 13:17 Home Medications Medication Instructions Recorded Confirmed Type Calcium 600 with Vitamin D3 1 tablet PO QPM 09/21/20 12/01/20 History PNV cmb#95-ferrous fumarate-FA 1 tablet PO HS 09/21/20 12/01/20 History [] acyclovir 800 mg PO HS 09/21/20 12/01/20 History cetirizine 10 mg PO DAILY 09/21/20 12/01/20 History ferrous sulfate 325 mg PO HS 09/21/20 12/01/20 History folic acid 2 mg PO BID 09/21/20 12/01/20 History sertraline 50 mg PO DAILY 09/21/20 12/01/20 History ondansetron 4 mg PO Q6H PRN #10 tablet 11/29/20 12/01/20 Rx aspirin 81 mg PO DAILY 12/01/20 12/01/20 History drospirenone (contraceptive) 4 mg PO DAILY 12/01/20 12/01/20 History [Slynd] escitalopram oxalate 10 mg PO DAILY 12/01/20 12/01/20 History Laboratory Tests 12/03/20 05:57 Sodium 141 mmol/L mmol/L (137-145) Potassium 3.9 mmol/L mmol/L (3.4-5.0) Chloride 108 mmol/L H mmol/L (98-107) Carbon Dioxide 27 mmol/L mmol/L (22-30) Anion Gap 6 mmol/L L mmol/L (8-16) BUN 5 mg/dL L mg/dL (7-17) Creatinine 0.70 mg/dL mg/dL (0.7-1.0) Estim Creat Clear Calc 115 ml/min ml/min Estimated GFR > 60 (59 - ) Glucose 99 mg/dL mg/dL (65-110) Calcium 9.3 mg/dL mg/dL (8.4-10.2) Total Bilirubin 1.1 mg/dL mg/dL (0.2-1.3) AST 182 U/L H U/L (14-36) ALT 595 U/L H U/L (4-35) Alkaline Phosphatase 241 U/L H U/L (38-126) Total Protein 7.0 g/dL g/dL (6.3-8.2) Albumin 3.8 g/dL g/dL (3.5-5.1) Patient hx anesthesia problems: none Family hx anesthesia problems: none Results Review: All pre-operative results and documents have been reviewed as part of the pre-operative evaluation. COUNT INCLUDES THE [facility] Past Medical History Medical History (Updated 12/02/20 @ 14:13 by Santos Haskins MD) Anemia Chronic idiopathic constipation Depression (Unknown) Elevated liver enzymes (~11/2020) Gallstone pancreatitis (~11/2020) History of miscarriage 09-05-2017, 9.5 wks Homozygous MTHFR mutation C677T Post-term (~09/2020) RUQ pain Surgical History Surgical History H/O dilation and curettage Suction dilation & curettage (surg) : 09-05-2017 Family History Family History Grandparent Diabetes mellitus Depression Hypertension Mother Depression Father Hypertension Social History Social History Smoking status: Never smoker Second hand tobacco smoke exposure: No Alcohol intake: never Substance use: never Substance use type: does not use 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
[2020-12-03] MEDS: INDOMETHACIN 50 MG SUPP.RECT RECTAL (14:15)
--- NOTE | 2020-12-03 16:25 | WPDANESEPPF ---
Anes - Initial Pre Proc Eval Procedure: Operation Date: 12/03/20 13:30 Proposed Procedures p Endoscopic Retro Cholangiopancreatogram - Zach Quiros MD Operation Date: 12/04/20 14:30 Proposed Procedures p Laparoscopic Cholecystectomy with Intra Operative Cholangiogram, Possible Open - Santos Haskins MD Date/Time: 12/03/20 16:25 Surgeon: Dulce Larose DO Pre Op Diagnosis: Choledocholithiasis with acute cholecystitis pancr Patient Data Age: 20 Gender: F Height: 1.65 m Weight: 79 kg Last Vital Signs Temp 36.6 C 12/03/20 14:48 Pulse 50 L 12/03/20 15:38 Resp 19 12/03/20 15:38 BP 137/90 12/03/20 15:38 Pulse Ox 100 12/03/20 15:38 Allergies Allergy/AdvReac Type Severity Reaction Status Date / Time No Known Allergies Allergy Verified 12/03/20 13:17 Home Medications Medication Instructions Recorded Confirmed Type Calcium 600 with Vitamin D3 1 tablet PO QPM 09/21/20 12/01/20 History PNV cmb#95-ferrous fumarate-FA 1 tablet PO HS 09/21/20 12/01/20 History [] acyclovir 800 mg PO HS 09/21/20 12/01/20 History cetirizine 10 mg PO DAILY 09/21/20 12/01/20 History ferrous sulfate 325 mg PO HS 09/21/20 12/01/20 History folic acid 2 mg PO BID 09/21/20 12/01/20 History sertraline 50 mg PO DAILY 09/21/20 12/01/20 History ondansetron 4 mg PO Q6H PRN #10 tablet 11/29/20 12/01/20 Rx aspirin 81 mg PO DAILY 12/01/20 12/01/20 History drospirenone (contraceptive) 4 mg PO DAILY 12/01/20 12/01/20 History [Slynd] escitalopram oxalate 10 mg PO DAILY 12/01/20 12/01/20 History Laboratory Tests 12/03/20 05:57 Sodium 141 mmol/L mmol/L (137-145) Potassium 3.9 mmol/L mmol/L (3.4-5.0) Chloride 108 mmol/L H mmol/L (98-107) Carbon Dioxide 27 mmol/L mmol/L (22-30) Anion Gap 6 mmol/L L mmol/L (8-16) BUN 5 mg/dL L mg/dL (7-17) Creatinine 0.70 mg/dL mg/dL (0.7-1.0) Estim Creat Clear Calc 115 ml/min ml/min Estimated GFR > 60 (59 - ) Glucose 99 mg/dL mg/dL (65-110) Calcium 9.3 mg/dL mg/dL (8.4-10.2) Total Bilirubin 1.1 mg/dL mg/dL (0.2-1.3) AST 182 U/L H U/L (14-36) ALT 595 U/L H U/L (4-35) Alkaline Phosphatase 241 U/L H U/L (38-126) Total Protein 7.0 g/dL g/dL (6.3-8.2) Albumin 3.8 g/dL g/dL (3.5-5.1) Patient hx anesthesia problems: none Family hx anesthesia problems: none Results Review: All pre-operative results and documents have been reviewed as part of the pre-operative evaluation. COUNT INCLUDES THE [facility] Past Medical History Medical History (Updated 12/02/20 @ 14:13 by Santos Haskins MD) Anemia Chronic idiopathic constipation Depression (Unknown) Elevated liver enzymes (~11/2020) Gallstone pancreatitis (~11/2020) History of miscarriage 09-05-2017, 9.5 wks Homozygous MTHFR mutation C677T Post-term (~09/2020) RUQ pain Surgical History Surgical History H/O dilation and curettage Suction dilation & curettage (surg) : 09-05-2017 Family History Family History Grandparent Diabetes mellitus Depression Hypertension Mother Depression Father Hypertension Social History Social History Smoking status: Never smoker Second hand tobacco smoke exposure: No Alcohol intake: never Substance use: never Substance use type: does not use 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
[2020-12-03] MEDS: ACETAMINOPHEN 500 MG TABLET 1000 MG PO (22:49)
[2020-12-03] MEDS: KETOROLAC 15 MG/ML VIAL (*BKC) IV PUSH (22:51)
[2020-12-04] MEDS: MORPHINE SULFATE (*CRX) 4 MG/ML INJ IV PUSH ×4 (00:38→10:48)
[2020-12-04] MEDS: SODIUM CHLORIDE 0.9% IV 1,000 ML 125 ML IV CONT (02:54)
[2020-12-04 05:27] VITALS: BP 112/73; PULSE 83; RESP 16; TEMP 36.4; O2SAT 100
[2020-12-04 06:19] LABS: Basophils Percent Auto 0.1 % (0.2-1.2); Eosinophils Percent Auto 0.2 % (0-4.4); Hematocrit 42.1 % (37.0-47.0); Hemoglobin 13.7 g/dL (12.0-15.0); Immature Granulocyte Absolute 0.03 K/mm3 (0.00-0.031); Immature Granulocyte Percent A 0.4 % (0-0.5); Lymphocytes Absolute Auto 1.51 K/mm3 (0.9-3.2); Lymphocytes Percent Auto 17.8 % (18.3-44.2); Mean Corpuscular HGB Conc 32.5 g/dl (32-36); Mean Corpuscular Hemoglobin 29.4 pg (26-34); Mean Corpuscular Volume 90.3 fl (80-100); Mean Platelet Volume 10.2 fl (7.4-10.4); Monocytes Absolute Auto 0.4 K/mm3 (0.1-0.6); Neutrophils Absolute Auto 6.5 K/mm3 (1.3-6.7); Neutrophils Percent Auto 76.5 % (45.5-73.1); Platelet Count Result 271 k/mm3 (150-375); Red Blood Count 4.66 M/mm3 (4.2-5.4); Red Cell Distribution Width 13.9 % (11.5-14.5); White Blood Count 8.5 K/mm3 (4.5-10.0)
[2020-12-04 06:34] LABS: Alanine Aminotransferase 477 U/L (4-35); Alkaline Phosphatase 266 U/L (38-126); Anion Gap 10 mmol/L (8-16); Aspartate Amino Transferase 129 U/L (14-36); Bilirubin,Total 1.2 mg/dL (0.2-1.3); Blood Urea Nitrogen 6 mg/dL (7-17); Calcium 9.1 mg/dL (8.4-10.2); Carbon Dioxide 24 mmol/L (22-30); Chloride 105 mmol/L (98-107); Estimated CRCL calculation 132 ml/min; Estimated Glomerular Filt Rate > 60; Glucose 95 mg/dL (65-110); Magnesium 1.7 mg/dL (1.6-2.3); Potassium 3.3 mmol/L (3.4-5.0); Sodium 139 mmol/L (137-145)
[2020-12-04 07:16] LABS: Amylase > 2400 U/L (30-110)
--- NOTE | 2020-12-04 07:29 | P.PNAN_ITS ---
Anes - Prog Note Post-Op Date/Time: 12/04/20 07:29 Cardiovascular status: normal Respiratory status: normal Airway patency: baseline Mental status: baseline Post-Op hydration status: normal Vital Signs: Last Vital Signs Temp 36.4 C L 12/04/20 05:27 Pulse 83 12/04/20 05:27 Resp 16 12/04/20 05:27 BP 112/73 12/04/20 05:27 Pulse Ox 100 12/04/20 05:27 Pain Score (VAS): 2 I/O: Intake & Output 12/03/20 12/03/20 12/04/20 15:59 23:59 07:59 Intake Total 5628 140 0715 Output Total 800 700 Balance 1100 -206 400 Laboratory Tests 12/04/20 05:57 12/04/20 05:57 12/04/20 12/04/20 12/04/20 05:57 05:57 05:57 WBC 8.5 RBC 4.66 Hgb 13.7 Hct 42.1 MCV 90.3 MCH 29.4 MCHC 32.5 RDW 13.9 Plt Count 271 MPV 10.2 Immature Gran % (Auto) 0.4 Neut % (Auto) 76.5 H Lymph % (Auto) 17.[address] [place] % (Auto) 5.0 Eos % (Auto) 0.2 Baso % (Auto) 0.1 L Lymph # (Auto) 1.51 [place] # (Auto) 0.4 Eos # (Auto) 0.0 Baso # (Auto) 0.0 Abs Immat Gran (auto) 0.03 Absolute Neuts (auto) 6.5 Absolute Nucleated RBC 0.0 Nucleated RBC % 0.0 Sodium 139 Potassium 3.3 L Chloride 105 Carbon Dioxide 24 Anion Gap 10 BUN 6 L Creatinine 0.60 L Estim Creat Clear Calc 132 Estimated GFR > 60 Glucose 95 Calcium 9.1 Magnesium 1.7 Total Bilirubin 1.2 Direct Bilirubin 0.0 AST 129 H ALT 477 H Alkaline Phosphatase 266 H Total Protein 7.0 Albumin 4.0 Amylase > 2400 H Lipase Blood Type Antibody Screen 12/04/20 12/04/20 05:57 05:57 WBC RBC Hgb Hct MCV MCH MCHC RDW Plt Count MPV Immature Gran % (Auto) Neut % (Auto) Lymph % (Auto) [place] % (Auto) Eos % (Auto) Baso % (Auto) Lymph # (Auto) [place] # (Auto) Eos # (Auto) Baso # (Auto) Abs Immat Gran (auto) Absolute Neuts (auto) Absolute Nucleated RBC Nucleated RBC % Sodium Potassium Chloride Carbon Dioxide Anion Gap BUN Creatinine Estim Creat Clear Calc Estimated GFR Glucose Calcium Magnesium Total Bilirubin Direct Bilirubin AST ALT Alkaline Phosphatase Total Protein Albumin Amylase Lipase Pending Blood Type B Positive Antibody Screen Negative Post-procedural complaints: none Patient Feedback: Patient satisfied with anesthetic care.
[2020-12-04 07:31] LABS: Lipase 25966 U/L (23-300)
[2020-12-04] MEDS: ONDANSETRON INJ 4 MG/2 ML VIAL IV PUSH ×3 (09:54→21:17)
--- NOTE | 2020-12-04 12:10 | PM.IMPN ---
Progress Note: A&P Assessment and Plan (1) Choledocholithiasis with acute cholecystitis with obstruction: Code(s): K80.43 - Calculus of bile duct with acute cholecystitis with obstruction Status: Deleted Assessment and Plan: presented with a classic right upper quadrant pain, was not associated with nausea or vomiting CT abdomen pelvis, cholelithiasis, mild gallbladder wall thickening likely reflecting cholecystitis were found. Liver function tests were elevated with a high lipase. Total bilirubin is 4.2, AST 785, ALT 1186, alk-phos 320. Lipase is 2847 MRCP showed Choledocholithiasis with mild intrahepatic and extrahepatic biliary dilatation. Cholelithiasis without evidence of cholecystitis. GI was consulted who preformed ERCP 12/03/20 who preformed removal of calculi/debris and sphincterotomy. Patient having increased pain today, Lipase increased from 75 to 25,966 and Amylase >2400 . She is having increased pain today as well. Talked to Dr. Haskins who will not be preforming surgery due to increased pain and pancreatitic numbers. May preform tomorrow if labs are trending down. Will continue to keep NPO, IV Fluid hydration and IV Pain medications and antiemetics PRN. (2) Gallstone pancreatitis: Onset Date: ~11/2020 Code(s): K85.10 - Biliary acute pancreatitis without necrosis or infection Status: Resolved Assessment and Plan: pancreatitis is likely secondary to gallstones, possibly related to obstruction of the ampulla secondary to stone or sludge. Cholecystectomy is indicated to prevent recurrence managed with fluid replacement, pain control, clinical monitoring (3) Depression: Onset Date: Unknown Code(s): F32.9 - Major depressive disorder, single episode, unspecified Status: Acute Assessment and Plan: Continue home medications (4) Post-term : Onset Date: ~09/2020 Code(s): O48.0 - Post-term Status: Acute Assessment and Plan: Patient is currently nursing Time Spent With Patient Time with patient: 25 - 35 minutes Subjective Date/time seen: 12/04/20 12:10 Interval history: Date of service 12/04/2020: Patient reports having increased pain overnight and the morphine was only helping for about 45 minutes. She reports having some shortness of breath for this because she cannot take a deep breath secondary to right upper quadrant abdominal pain. She denies any chest pain, cough, fever, chills, leg swelling, calf pain, or any other symptoms at this time. Review of Systems Review of Systems: All systems reviewed & are unremarkable except as noted in HPI and below Exam Narrative: General: 20-year-old woman laying on her right side in bed with heating pad on abdomen. Appears comfortable. In no acute distress. Skin: No jaundice or cyanosis. Good skin turgor. Neck: Full range of motion. Supple. Respiratory: Lungs are clear to auscultation bilaterally. No bony chest wall tenderness. Cardiovascular: The heart has a regular rate and rhythm without murmur. Lower extremities: No lower extremity edema. Distal pulses are easily palpated. No calf tenderness to palpation. Gastrointestinal: TTP RUQ. The abdomen is otherwise soft, nondistended Psychiatric: Lucid and oriented. Memory intact. Neurologic: No focal deficits. Speech is clear. No facial drooping. Objective Data Vital Signs Vital Signs: Vital Signs - 24 hr 12/03/20 13:18 12/03/20 14:48 12/03/20 14:58 Temperature 97.3 F L 98 F Pulse Rate 51 L 100 50 L Respiratory Rate 18 26 H 23 H Blood Pressure 125/66 121/74 128/84 Pulse Oximetry 100 100 100 12/03/20 15:08 12/03/20 15:18 12/03/20 15:28 Temperature Pulse Rate 78 51 L 50 L Respiratory Rate 19 18 23 H Blood Pressure 125/86 134/84 135/89 Pulse Oximetry 100 100 100 12/03/20 15:38 12/03/20 20:00 12/03/20 23:46 Temperature 97 F L Pulse
[2020-12-04] MEDS: SODIUM CHLORIDE 0.9% IV 1,000 ML 100 ML IV CONT (12:22)
[2020-12-04] MEDS: HYDROmorphone HCL INJ (*CRX) 1 MG/ML SYR IV PUSH ×4 (12:55→23:09)
--- NOTE | 2020-12-04 13:41 | PM.PNGS ---
Progress Note: A&P Assessment and Plan (1) Chronic cholecystitis due to cholelithiasis with choledocholithiasis: Onset Date: ~11/2020 Code(s): K80.64 - Calculus of gallbladder and bile duct with chronic cholecystitis without obstruction Status: Acute Assessment and Plan: ERCP yesterday was successful with removal of a small stone from the CBD. Lipase up to 25,966 today and she is having more abdominal pain and nausea. With the worsening pancreatitis, we will cancel her surgery today. Continue treating the pancreatitis and repeat labs again tomorrow morning. We will tentatively add her onto the schedule for a cholecystectomy tomorrow pending how she improves from a pancreatitis standpoint. (2) Gallstone pancreatitis: Onset Date: ~11/2020 Code(s): K85.10 - Biliary acute pancreatitis without necrosis or infection Status: Resolved Assessment and Plan: ERCP successful yesterday with one small stone removed from the common bile duct. Although, lipase jumped up to 25,966 today. She is also having more abdominal pain and nausea. Will keep her NPO for now. I increased the rate of her IV fluids. IV analgesics were adjusted by the Hospitalist to hopefully help with pain control. Repeat labs tomorrow, see plan above. (3) Elevated liver enzymes: Onset Date: ~11/2020 Code(s): R74.8 - Abnormal levels of other serum enzymes Status: Acute Assessment and Plan: LFTs unchanged today. ERCP successful with one small stone removed from the common bile duct. (4) Post-term : Onset Date: ~09/2020 Code(s): O48.0 - Post-term Status: Acute Additional Plan I have discussed the patient's case and plan of care with Dr. Haskins. Subjective Subjective Date/Time Seen: 12/04/20 13:41 Patient reports: still having pain, voiding w/o difficulty, flatus, no bowel movement, nausea and afebrile Interval history: Patient seen this afternoon. She reports having more abdominal pain, which is all across her upper abdomen but worse in the epigastric area. She also developed nausea overnight but has not had any vomiting. She feels her pain is much worse today. No other complaints at this time. ERCP done yesterday with one small stone removed from the CBD. Review of Systems Review of Systems: All systems reviewed & are unremarkable except as noted in HPI and below Constitutional: Constitutional: Reports as per HPI, Reports no additional constitutional complaints, Denies chills and Denies fever(s) Cardiovascular: Cardiovascular: Reports no additional cardiovascular complaints, Denies chest pain and Denies leg edema Respiratory: Respiratory: Reports no additional respiratory complaints, Denies cough and Denies dyspnea Gastrointestinal: Gastrointestinal: Reports as per HPI and Reports no additional gastrointestinal complaints Neurologic: Reports system reviewed and no additional complaints, except as documented, Denies Abnormal speech present and Denies focal weakness Exam Const: General: no acute distress and awake Orientation/consciousness: patient oriented x3 GI: Inspection: non-distended, striae and no visible herniation GI Palp: Yes Soft to palpation, Yes Tenderness to palpation present (GI) (mostly tender in the upper abd, slight tenderness in the lower quadrants), No Guarding due to palpation present (GI) and No Rebound tenderness present Auscultation: Hypoactive bowel sounds present Neuro: General: moves all extremities and no focal motor deficits Psych: Mental Status: mental status grossly normal Insight: Good insight present (Psych) Judgement: Good judgement present (Psych) Objective Data Vital Signs Vital Signs: Vital Signs - 24 hr 12/03/20 14:48 12/03/20 14:58 12/03/20 15:08 Temperature 98 F Pulse Rate 100 50 L 78 Respiratory Rate 26 H 23 H 19 Blood Pressure 121/74 128/84 125/86 Pulse Oximetry 100 100 100 12/03/20 15:18 12/03/20 15:28
[2020-12-04 14:33] VITALS: BP 108/69; PULSE 107; RESP 18; TEMP 37; O2SAT 97
--- NOTE | 2020-12-04 16:38 | WPDGIPROGNO ---
Progress Note: A&P Assessment and Plan (1) Chronic cholecystitis due to cholelithiasis with choledocholithiasis: Onset Date: ~11/2020 Code(s): K80.64 - Calculus of gallbladder and bile duct with chronic cholecystitis without obstruction Status: Acute Assessment and Plan: ercp yesterday with successful removal of stone and sphincterotomy (few times PD was cannulated but did not use contrast in PD, also received indomethacin before ERCP) noted worsening pancreatic enzymes and more abdominal pain keep npo, reassess tomorrow- if better then can have cholecystectomy (2) Gallstone pancreatitis: Onset Date: ~11/2020 Code(s): K85.10 - Biliary acute pancreatitis without necrosis or infection Status: Resolved Assessment and Plan: worsening pancreatitis after ercp medical management and pain control, npo status (3) Elevated liver enzymes: Onset Date: ~11/2020 Code(s): R74.8 - Abnormal levels of other serum enzymes Status: Acute Assessment and Plan: improving (4) RUQ pain: Code(s): R10.11 - Right upper quadrant pain Status: Acute Subjective Date/time seen: 12/04/20 16:38 Interval history: ercp yesterday with removal of stones, today more abdominal pain and nausea but no vomiting. Noted worsening pancreatic enzymes Review of Systems Review of Systems: All systems reviewed & are unremarkable except as noted in HPI and below Exam Const: General: comfortable and no acute distress HENMT: General nose exam: Normal nares present Eyes: General: appearance normal, both eyes and all related structures Neck: Neck: no JVD Resp: Auscultation: clear to auscultation bilaterally Cardio: Rate: regular rate Rhythm: regular rhythm GI: Inspection: non-distended GI Palp: Yes Soft to palpation and Yes Tenderness to palpation present (GI) (epigastric +, no rebound) Auscultation: normal bowel sounds Skin: General skin exam: normal color Neuro: General: gait normal Speech: normal speech Extrem: General: normal to inspection Psych: Mental Status: mental status grossly normal Objective Data Vital Signs Vital Signs: Vital Signs - 24 hr 12/03/20 20:00 12/03/20 23:46 12/04/20 05:27 Temperature 97 F L 97.5 F L Pulse Rate 50 L 51 L 83 Respiratory Rate 19 16 16 Blood Pressure 135/73 112/73 Pulse Oximetry 100 100 100 10/26/21 14:33 Temperature 98.6 F Pulse Rate 107 H Respiratory Rate 18 Blood Pressure 108/69 Pulse Oximetry 97 Intake/Output Intake/Output: Intake & Output 12/01/20 12/02/20 12/03/20 12/04/20 23:59 23:59 23:59 23:59 Intake Total 3120 2830 2794 2150 Output Total 600 850 800 700 Balance 2520 1979 1993 145 Meds/Results Medications: Active Medications Generic Name Dose Route Start Last Admin Trade Name Freq PRN Reason Stop Dose Admin Fentanyl Citrate 25 mcg 12/03/20 16:24 Fentanyl Citrate Inj (*Crx) 100 Mcg/2 Ml Vial IV PUSH Q2M PRN Pain Hydromorphone HCl 0.5 mg 12/04/20 12:08 Hydromorphone Hcl Inj (*Crx) 1 Mg/Ml Syr IV PUSH Q3H PRN Pain Rated 4-6 Hydromorphone HCl 1 mg 12/04/20 12:08 12/04/20 12:55 Hydromorphone Hcl Inj (*Crx) 1 Mg/Ml Syr IV PUSH 1 mg Q3H PRN Administration Pain Rated 7-10 Piperacillin/Tazobactam/Dextrose 3.375 gm in 50 mls @ 100 mls/hr 12/01/20 12:00 12/04/20 12:51 Zosyn 3.375 Gm/D5w 50ml Pm IVPB Infused Q6H JOSE Infusion Sodium Chloride 1,000 mls @ 150 mls/hr 12/01/20 06:40 12/04/20 12:22 Normal Saline Iv IV CONT 100 mls/hr .Q6H40M JOSE Administration Lactated Ringer's 1,000 mls @ 30 mls/hr 12/03/20 16:25 Lr - Lactated Ringers Iv IV CONT .Q24H JOSE Lactated Ringer's 1,000 mls @ 30 mls/hr 12/03/20 16:25 Lr - Lactated Ringers Iv IV CONT .Q24H JOSE Ondansetron HCl 4 mg 12/01/20 06:36 12/04/20 09:54 Ondansetron Inj 4 Mg/2 Ml Vial IV PUSH 4 mg Q4H PRN Administration Nausea Ondanset
[2020-12-04 19:40] VITALS: O2SAT 96
[2020-12-04] MEDS: SODIUM CHLORIDE 0.9% IV 1,000 ML 150 ML IV CONT (19:55)
[2020-12-04 22:00] VITALS: BP 109/57; PULSE 97; RESP 18; TEMP 36.6; O2SAT 96
[2020-12-05] VITALS (13 sets, daily range): BP systolic 114–126; BP diastolic 66–79; PULSE 80–120; RESP 14–18; TEMP 36.1–37.3; O2SAT 94–100
[2020-12-05] MEDS: HYDROmorphone HCL INJ (*CRX) 1 MG/ML SYR IV PUSH ×3 (02:06→12:21)
[2020-12-05] MEDS: ONDANSETRON INJ 4 MG/2 ML VIAL IV PUSH ×4 (02:07→17:41)
[2020-12-05] MEDS: SODIUM CHLORIDE 0.9% IV 1,000 ML 150 ML IV CONT (02:09)
[2020-12-05] MEDS: HYDROmorphone HCL INJ (*CRX) 1 MG/ML SYR 0.5 MG IV PUSH ×3 (05:27→23:05)
[2020-12-05 06:07] LABS: Hematocrit 41.2 % (37.0-47.0); Hemoglobin 13.3 g/dL (12.0-15.0); Mean Corpuscular HGB Conc 32.3 g/dl (32-36); Mean Corpuscular Hemoglobin 29.4 pg (26-34); Mean Corpuscular Volume 90.9 fl (80-100); Mean Platelet Volume 10.2 fl (7.4-10.4); Platelet Count Result 232 k/mm3 (150-375); Red Blood Count 4.53 M/mm3 (4.2-5.4); Red Cell Distribution Width 14.5 % (11.5-14.5); White Blood Count 9.1 K/mm3 (4.5-10.0)
[2020-12-05 06:33] LABS: Alanine Aminotransferase 251 U/L (4-35); Albumin Level 3.3 g/dL (3.5-5.1); Alkaline Phosphatase 180 U/L (38-126); Anion Gap 9 mmol/L (8-16); Aspartate Amino Transferase 43 U/L (14-36); Bilirubin,Total 0.8 mg/dL (0.2-1.3); Blood Urea Nitrogen 8 mg/dL (7-17); Calcium 8.6 mg/dL (8.4-10.2); Carbon Dioxide 23 mmol/L (22-30); Chloride 107 mmol/L (98-107); Estimated CRCL calculation 132 ml/min; Estimated Glomerular Filt Rate > 60; Glucose 94 mg/dL (65-110); Magnesium 1.5 mg/dL (1.6-2.3); Potassium 3.8 mmol/L (3.4-5.0); Sodium 139 mmol/L (137-145)
[2020-12-05 06:48] LABS: Lipase 13984 U/L (23-300)
[2020-12-05] MEDS: SODIUM CHLORIDE 0.9% IV 1,000 ML 100 ML IV CONT (09:24)
--- NOTE | 2020-12-05 10:19 | PM.IMPN ---
Progress Note: A&P Assessment and Plan (1) Choledocholithiasis with acute cholecystitis with obstruction: Code(s): K80.43 - Calculus of bile duct with acute cholecystitis with obstruction Status: Deleted Assessment and Plan: presented with a classic right upper quadrant pain, was not associated with nausea or vomiting CT abdomen pelvis, cholelithiasis, mild gallbladder wall thickening likely reflecting cholecystitis were found. Liver function tests were elevated with a high lipase. Total bilirubin is 4.2, AST 785, ALT 1186, alk-phos 320. Lipase is 2847 MRCP showed Choledocholithiasis with mild intrahepatic and extrahepatic biliary dilatation. Cholelithiasis without evidence of cholecystitis. GI was consulted who preformed ERCP 12/03/20 who preformed removal of calculi/debris and sphincterotomy. 12/05: Pain and LFTS/Lipase trending down today. Will be going to surgery for Lap Aspen by Surgery. Continue monitoring. (2) Gallstone pancreatitis: Onset Date: ~11/2020 Code(s): K85.10 - Biliary acute pancreatitis without necrosis or infection Status: Resolved Assessment and Plan: pancreatitis is likely secondary to gallstones, possibly related to obstruction of the ampulla secondary to stone or sludge. Cholecystectomy is indicated to prevent recurrence managed with fluid replacement, pain control, clinical monitoring (3) Depression: Onset Date: Unknown Code(s): F32.9 - Major depressive disorder, single episode, unspecified Status: Acute Assessment and Plan: Continue home medications (4) Post-term : Onset Date: ~09/2020 Code(s): O48.0 - Post-term Status: Acute Assessment and Plan: Patient is currently nursing Time Spent With Patient Time with patient: 25 - 35 minutes Subjective Date/time seen: 12/05/20 10:19 Interval history: Date of service 12/05/2020: Patient reports improved pain overnight with pain medications and being NPO. She was having 4/10 pain but just recieved some medicaitons. She has been nauseous with the pain medications and receiving Zofran as well. Denies any vomiting. She denies any chest pain, SOB, cough, fever, chills, leg swelling, calf pain, or any other symptoms at this time. Review of Systems Review of Systems: All systems reviewed & are unremarkable except as noted in HPI and below Exam Narrative: General: 20-year-old woman laying on her left side in bed with heating pad on abdomen. Appears comfortable. In no acute distress. Skin: No jaundice or cyanosis. Good skin turgor. Neck: Full range of motion. Supple. Respiratory: Lungs are clear to auscultation bilaterally. No bony chest wall tenderness. Cardiovascular: The heart has a regular rate and rhythm without murmur. Lower extremities: No lower extremity edema. Distal pulses are easily palpated. No calf tenderness to palpation. Gastrointestinal: TTP RUQ. The abdomen is otherwise soft, nondistended Psychiatric: Lucid and oriented. Memory intact. Neurologic: No focal deficits. Speech is clear. No facial drooping. Objective Data Vital Signs Vital Signs: Vital Signs - 24 hr 12/04/20 14:33 12/04/20 19:40 12/04/20 22:00 Temperature 98.6 F 97.8 F Pulse Rate 107 H 97 Respiratory Rate 18 18 Blood Pressure 108/69 109/57 L Pulse Oximetry 97 96 96 12/05/20 06:30 Temperature 97.4 F L Pulse Rate 82 Respiratory Rate 16 Blood Pressure 116/76 Pulse Oximetry 100 Intake/Output Intake/Output: Intake & Output 12/02/20 12/03/20 12/04/20 12/05/20 23:59 23:59 23:59 23:59 Intake Total 2830 2794 3200 2100 Output Total 169 394 6126 Balance 1980 1994 1999 2100 Meds/Results Medications: Active Medications Generic Name Dose Route Start Last Admin Trade Name Freq PRN Reason Stop Dose Admin Fentanyl Citrate 25 mcg 12/03/20 16:24 Fentanyl Citrate Inj (*Crx) 100
[2020-12-05] MEDS: MAGNESIUM SULFATE 3GM/D5W100ML 3 GM/100 ML BAG IVPB (10:50)
[2020-12-05] MEDS: LACTATED RINGERS 1,000 ML 30 ML IV CONT ×2 (13:35→17:07)
[2020-12-05] MEDS: ACETAMINOPHEN 500 MG TABLET 1000 MG PO (13:45)
[2020-12-05] MEDS: KETOROLAC 15 MG/ML VIAL (*BKC) IV PUSH (13:45)
--- NOTE | 2020-12-05 14:52 | P.HPUP_ITS ---
History and Physical Update Update Date/Time: 12/05/20 14:52 History and Physical has been reviewed, including an updated exam of the patient. There are changes in the patient's condition. The patient has had antibiotics and an MRCP that showed common bile duct stones. Subsequently 2 da ys ago she had an ERCP which was able to do a sphincterotomy and stone extraction. Yesterday she had significant elevation of lipase amylase and abdominal pain consistent with post ERCP pancreatitis. This is improved today and her lipase is down by half what it was. Therefore, have discussed with her the risks benefits possible complications of proceeding with a laparoscopic cholecystectomy, intraoperative cholangiogram and possible open cholecystectomy. She feels better and wishes to proceed in order to avoid further stones coming out into the common duct. Risks, benefits, and alternatives have been discussed and questions answered. Patient agrees to proceed with procedure.
--- NOTE | 2020-12-05 15:40 | WPDGIPROGNO ---
Progress Note: A&P Assessment and Plan (1) Chronic cholecystitis due to cholelithiasis with choledocholithiasis: Onset Date: ~11/2020 Code(s): K80.64 - Calculus of gallbladder and bile duct with chronic cholecystitis without obstruction Status: Acute Assessment and Plan: ercp 2 days ago with successful removal of stone and sphincterotomy (few times PD was cannulated but did not use contrast in PD, also received indomethacin before ERCP) she had worsening pancreatitis after ercp but today feeling better, liver enzymes also trending down after ercp today cholecystectomy (2) Gallstone pancreatitis: Onset Date: ~11/2020 Code(s): K85.10 - Biliary acute pancreatitis without necrosis or infection Status: Resolved Assessment and Plan: worsening pancreatitis after ercp but improving today medical management and pain control, npo status (3) Elevated liver enzymes: Onset Date: ~11/2020 Code(s): R74.8 - Abnormal levels of other serum enzymes Status: Acute Assessment and Plan: improving (4) RUQ pain: Code(s): R10.11 - Right upper quadrant pain Status: Acute Subjective Date/time seen: 12/05/20 15:40 Interval history: yesterday with nausea and emesis but today pain has improved, she will go later for lap isabella Review of Systems Review of Systems: All systems reviewed & are unremarkable except as noted in HPI and below Exam Const: General: comfortable and no acute distress HENMT: General nose exam: Normal nares present Eyes: General: appearance normal, both eyes and all related structures Neck: Neck: no JVD Resp: Auscultation: clear to auscultation bilaterally Cardio: Rate: regular rate Rhythm: regular rhythm GI: Inspection: non-distended GI Palp: Yes Soft to palpation and Yes Tenderness to palpation present (GI) (epigastric +, no rebound) Auscultation: normal bowel sounds Skin: General skin exam: normal color Neuro: General: gait normal Speech: normal speech Extrem: General: normal to inspection Psych: Mental Status: mental status grossly normal Objective Data Vital Signs Vital Signs: Vital Signs - 24 hr 12/04/20 19:40 12/04/20 22:00 12/05/20 06:30 Temperature 97.8 F 97.4 F L Pulse Rate 97 82 Respiratory Rate 18 16 Blood Pressure 109/57 L 116/76 Pulse Oximetry 96 96 100 12/05/20 13:15 Temperature 99.2 F Pulse Rate 120 H Respiratory Rate 16 Blood Pressure 123/70 Pulse Oximetry 95 Intake/Output Intake/Output: Intake & Output 12/02/20 12/03/20 12/04/20 12/05/20 23:59 23:59 23:59 23:59 Intake Total 2830 2794 3200 2250 Output Total 171 959 9842 Balance 1979 1993 1999 2249 Meds/Results Medications: Active Medications Generic Name Dose Route Start Last Admin Trade Name Freq PRN Reason Stop Dose Admin Fentanyl Citrate 25 mcg 12/03/20 16:24 Fentanyl Citrate Inj (*Crx) 100 Mcg/2 Ml Vial IV PUSH Q2M PRN Pain Hydromorphone HCl 0.5 mg 12/04/20 12:08 12/05/20 05:27 Hydromorphone Hcl Inj (*Crx) 1 Mg/Ml Syr IV PUSH 0.5 mg Q3H PRN Administration Pain Rated 4-6 Hydromorphone HCl 1 mg 12/04/20 12:08 12/05/20 12:21 Hydromorphone Hcl Inj (*Crx) 1 Mg/Ml Syr IV PUSH 1 mg Q3H PRN Administration Pain Rated 7-10 Piperacillin/Tazobactam/Dextrose 3.375 gm in 50 mls @ 100 mls/hr 12/01/20 12:00 12/05/20 12:50 Zosyn 3.375 Gm/D5w 50ml Pm IVPB Infused Q6H JOSE Infusion Sodium Chloride 1,000 mls @ 100 mls/hr 12/01/20 06:40 12/05/20 09:24 Normal Saline Iv IV CONT 100 mls/hr .Q10H JOSE Administration Lactated Ringer's 1,000 mls @ 30 mls/hr 12/03/20 16:25 12/05/20 13:35 Lr - Lactated Ringers Iv IV CONT 30 mls/hr .Q24H JOSE Administration Lactated Ringer's 1,000 mls @ 30 mls/hr 12/03/20 16:25 Lr - Lactated Ringers Iv IV CONT .Q24H JOSE Ondansetron HCl 4 mg 12/01/20 06:36 12/05/20 12:21 Ondansetron Inj 4 Mg/2 Ml Vial IV PUS
[2020-12-05] MEDS: LIDO 1%/EPINEPHRINE 1:100,000 50 ML VIAL INFILTRATE (16:49)
--- NOTE | 2020-12-05 17:23 | W.PM.PROC2 ---
Procedure Note - Detailed Date of Procedure 12/05/20 Pre-op Diagnosis 1. Chronic cholecystitis with cholelithiasis and post ERCP pancreatitis. 2. Recent choledocholithiasis status post ERCP with stone extraction and sphincterotomy. Post-op Diagnosis same Procedure Performed 1. Laparoscopic cholecystectomy with intraoperative cholangiogram 2. biopsy of apparent saponification in the fat of the falciform ligament 3. excision of a 3 x 2 mm brown skin lesion epigastric area of the skin of the abdomen. Surgeon Santos Haskins MD Special Tester Luann VILLEDA.OR Fur Stretcher Anesthesia general Indications Patient presented to the ER with elevated liver function tests an MRCP showed common bile duct stones with stones in the gallbladder. Two days ago she underwent ERCP with sphincterotomy and stone extraction. Yesterday her lipase and amylase were quite high. Therefore we waited another day and since she was feeling better with less pain proceeded to do the laparoscopic cholecystectomy with her permission understanding that this could cause further flare of her pancreas but will help prevent new stones from entering the common duct if we can get out. Risk including that of bleeding, infection, possible injury to common bile duct or surrounding organs, and worsening pancreatitis have been described. Findings Multiple small areas of yellow spots on the peritoneum and the falciform ligament which appeared to be mostly in areas of fatty tissue. Suspect this is saponification from pancreatitis. There was also approximately 200 cc of bilious ascitic fluid within the abdomen upon entry. Description of Procedure Procedure Details: Patient was seen preoperatively in the holding area and risks, benefits and alternatives confirmed. Patient was taken to the operating room and general anesthesia was induced. A time out was then preformed with the surgery team confirming patient and site of surgery. The abdomen was prepped and draped in the usual sterile fashion. Incision was made just below the umbilicus transversely. Two stay sutures of O- Vicryl were used to elevate the mid-line fascia beneath the umbilicus and a small incision was made under direct vision. The peritoneum was entered. Upon and peritoneum there was some clear bilious ascitic appearing fluid that came out of the incision. This was suctioned away and prior to completing the procedure we suctioned approximately 250 cc of this colored fluid out of the abdomen. Following this he 12 mm Hinkle cannula was introduced under direct vision. the balloon on this was insufflated pulled back and the securing ring/olive was slid down and secured. The 2-0 Vicryl sutures help hold this in place. First under low flow and then under high flow the abdomen was insufflated with carbon dioxide never exceeding a pressure of 14. Three 5 mm trocars were then introduced under direct vision. The following trocars were introduced under direct vision: a 5 mm in the epigastrium and two 5 mm trocars along the right costal margin. (It should be mentioned that right where I planned to put the epigastric 5 mm port there was a proximally 3 x 2 mm dark brown skin lesion and rather than cutting through it I did an excision of it and sent for pathologic evaluation). There were no significant adhesions to the gallbladder The gall bladder was grasped and the cystic duct and artery were dissected free and I carefully identified a window of safety with only two tubular structures in the area being the cystic duct and the cystic artery. I then used a 5 mm endo-clip perfect binder feeder offbearer to place 2 clips on the patient's side 1 on the gallbladder side on the cystic artery and just 1 clip on the gallbladder side of the cystic duct. There was also a prominent pericystic duct lymph node which I placed a clip medial to. ( I believe this cystic duct lymph node was excised with the specimen). A small hole was made in the cystic duct with endoshears and a cholagio-ca
[2020-12-05] MEDS: fentaNYL CITRATE INJ (*CRX) 100 MCG/2 ML VIAL 25 MCG IV PUSH ×4 (17:41→18:00)
[2020-12-05] MEDS: LACTATED RINGERS 1,000 ML 100 ML IV CONT (19:00)
[2020-12-05] MEDS: SENNA/DOCUSATE SODIUM TABLET 2 TAB PO (20:51)
[2020-12-06] VITALS (11 sets, daily range): BP systolic 109–142; BP diastolic 51–73; PULSE 100–125; RESP 16–20; TEMP 36.3–39.2; O2SAT 94–97
[2020-12-06] MEDS: HYDROmorphone HCL INJ (*CRX) 1 MG/ML SYR 0.5 MG IV PUSH ×6 (03:03→20:52)
[2020-12-06] MEDS: ONDANSETRON INJ 4 MG/2 ML VIAL IV PUSH (03:08)
[2020-12-06 05:41] LABS: Hematocrit 37.4 % (37.0-47.0); Hemoglobin 11.8 g/dL (12.0-15.0); Mean Corpuscular HGB Conc 31.6 g/dl (32-36); Mean Corpuscular Hemoglobin 29.7 pg (26-34); Mean Corpuscular Volume 94.2 fl (80-100); Mean Platelet Volume 10.2 fl (7.4-10.4); Platelet Count Result 193 k/mm3 (150-375); Red Blood Count 3.97 M/mm3 (4.2-5.4); Red Cell Distribution Width 14.2 % (11.5-14.5)
[2020-12-06 06:01] LABS: Alanine Aminotransferase 149 U/L (4-35); Albumin Level 2.9 g/dL (3.5-5.1); Alkaline Phosphatase 136 U/L (38-126); Anion Gap 5 mmol/L (8-16); Aspartate Amino Transferase 33 U/L (14-36); Bilirubin,Total 0.9 mg/dL (0.2-1.3); Blood Urea Nitrogen 6 mg/dL (7-17); Carbon Dioxide 24 mmol/L (22-30); Chloride 105 mmol/L (98-107); Estimated CRCL calculation 132 ml/min; Estimated Glomerular Filt Rate > 60; Glucose 95 mg/dL (65-110); Lipase 1940 U/L (23-300); Magnesium 1.9 mg/dL (1.6-2.3); Potassium 3.6 mmol/L (3.4-5.0); Sodium 134 mmol/L (137-145)
[2020-12-06] MEDS: ENOXAPARIN 40 MG/0.4 ML SYRINGE SUB-Q (08:51)
--- NOTE | 2020-12-06 09:47 | WPDGIPROGNO ---
Progress Note: A&P Assessment and Plan (1) Chronic cholecystitis due to cholelithiasis with choledocholithiasis: Onset Date: ~11/2020 Code(s): K80.64 - Calculus of gallbladder and bile duct with chronic cholecystitis without obstruction Status: Acute Assessment and Plan: ercp 3 days ago with successful removal of stone and sphincterotomy then had more pain and worsening pancreatitis (she presented with GS pancreatitis though) pain is improving, lipase coming down s/p lap isabella, continue CL diet for now (2) Gallstone pancreatitis: Onset Date: ~11/2020 Code(s): K85.10 - Biliary acute pancreatitis without necrosis or infection Status: Resolved Assessment and Plan: worsening pancreatitis after ercp but improving today CL diet for now continue to monitor, still requiring pain meds (3) Elevated liver enzymes: Onset Date: ~11/2020 Code(s): R74.8 - Abnormal levels of other serum enzymes Status: Acute Assessment and Plan: continue to improve (4) RUQ pain: Code(s): R10.11 - Right upper quadrant pain Status: Acute Subjective Date/time seen: 12/06/20 09:47 Interval history: still with pain mostly after coughing but thinks that better since yesterday, she was nauseous. Yesterday had lap isabella. On liquid diet. Review of Systems Review of Systems: All systems reviewed & are unremarkable except as noted in HPI and below Exam Const: General: comfortable and no acute distress HENMT: General nose exam: Normal nares present Eyes: Sclera: sclerae normal Neck: Neck: supple Resp: Effort & Inspection: normal respiratory effort Auscultation: clear to auscultation bilaterally Cardio: Rate: regular rate GI: GI Palp: Yes Soft to palpation Auscultation: normal bowel sounds Other: expected tender from recent lap isabella Skin: General skin exam: no rashes or lesions noted Neuro: Speech: normal speech Motor exam (neuro): Normal motor muscle tone present throughout Extrem: General: normal to inspection Psych: Mental Status: mental status grossly normal Objective Data Vital Signs Vital Signs: Vital Signs - 24 hr 12/05/20 13:15 12/05/20 17:07 12/05/20 17:22 Temperature 99.2 F 98.3 F Pulse Rate 120 H 98 80 Respiratory Rate 16 14 18 Blood Pressure 123/70 116/72 124/78 Pulse Oximetry 95 100 100 12/05/20 17:37 12/05/20 17:53 12/05/20 18:08 Temperature Pulse Rate 85 81 82 Respiratory Rate 16 14 16 Blood Pressure 126/79 122/72 114/66 Pulse Oximetry 96 95 94 12/05/20 18:23 12/05/20 19:00 12/05/20 19:30 Temperature 97.0 F L 97.1 F L Pulse Rate 81 83 96 Respiratory Rate 17 14 16 Blood Pressure 117/75 116/75 124/71 Pulse Oximetry 95 98 98 12/05/20 20:00 12/05/20 20:33 12/05/20 21:59 Temperature 97.1 F L Pulse Rate 91 91 Respiratory Rate 16 16 Blood Pressure 124/68 Pulse Oximetry 95 97 95 12/06/20 00:09 12/06/20 05:38 Temperature 99.9 F H 99 F Pulse Rate 100 122 H Respiratory Rate 18 16 Blood Pressure 110/51 L 118/58 L Pulse Oximetry 97 95 Intake/Output Intake/Output: Intake & Output 12/03/20 12/04/20 12/05/20 12/06/20 23:59 23:59 23:59 23:59 Intake Total 2794 3200 2800 350 Output Total 800 1200 1500 900 Balance 1993 1999 1300 -550 Meds/Results Medications: Active Medications Generic Name Dose Route Start Last Admin Trade Name Freq PRN Reason Stop Dose Admin Enoxaparin Sodium 40 mg 12/06/20 09:00 12/06/20 08:51 Enoxaparin 40 Mg/0.4 Ml Syringe SUB-Q 40 mg DAILY JOSE Administration Fentanyl Citrate 25 mcg 12/03/20 16:24 12/05/20 18:00 Fentanyl Citrate Inj (*Crx) 100 Mcg/2 Ml Vial IV PUSH 25 mcg Q2M PRN Administration Pain Hydromorphone HCl 0.5 mg 12/04/20 12:08 12/06/20 08:52 Hydromorphone Hcl Inj (*Crx) 1 Mg/Ml Syr IV PUSH 0.5 mg Q3H PRN Administration Pain Rated 4-6 Hydromorphone HCl 1 mg 12/04/20 12:08 12/05/20 12:21 Hydromorphone Hcl I
--- NOTE | 2020-12-06 11:53 | PM.IMPN ---
Progress Note: A&P Assessment and Plan (1) Choledocholithiasis with acute cholecystitis with obstruction: Code(s): K80.43 - Calculus of bile duct with acute cholecystitis with obstruction Status: Deleted Assessment and Plan: Presented with a classic right upper quadrant pain, was not associated with nausea or vomiting CT abdomen pelvis, cholelithiasis, mild gallbladder wall thickening likely reflecting cholecystitis were found. Liver function tests were elevated with a high lipase. Total bilirubin is 4.2, AST 785, ALT 1186, alk-phos 320. Lipase is 2847 MRCP showed Choledocholithiasis with mild intrahepatic and extrahepatic biliary dilatation. Cholelithiasis without evidence of cholecystitis. GI was consulted who preformed ERCP 12/03/20 who preformed removal of calculi/debris and sphincterotomy. Lab [facility] post-op Day #1 12/06: Pain and LFTS/Lipase trending down today but lipase still 1200. Feeling well, but still having some abd pain. Surgery wants to continue monitoring to let lipase decrease more and continue to slowly advance diet. Continue monitoring. (2) Gallstone pancreatitis: Onset Date: ~11/2020 Code(s): K85.10 - Biliary acute pancreatitis without necrosis or infection Status: Resolved Assessment and Plan: pancreatitis is likely secondary to gallstones, possibly related to obstruction of the ampulla secondary to stone or sludge. Cholecystectomy is indicated to pevent recurrence managed with fluid replacement, pain control, clinical monitoring (3) Depression: Onset Date: Unknown Code(s): F32.9 - Major depressive disorder, single episode, unspecified Status: Acute Assessment and Plan: Continue home medications (4) Post-term : Onset Date: ~09/2020 Code(s): O48.0 - Post-term Status: Acute Assessment and Plan: Patient is currently nursing Time Spent With Patient Time with patient: 25 - 35 minutes Subjective Date/time seen: 12/06/20 11:53 Interval history: Date of service 12/06/2020: Patient reports feeling better after surgery. Still having some abdominal bloating and pain with coughing. She otherwise is eating her diet. She reports only some mild nausea associated with IV pain medications and contributing it to not eating prior to medications. She did report a low grade fever this morning she felt mildly. Denies any chest pain, SOB, chills, leg swelling, calf pain, or any other symptoms at this time. Review of Systems Review of Systems: All systems reviewed & are unremarkable except as noted in HPI and below Exam Narrative: General: 20-year-old woman sitting up in bed on her computer. Appears comfortable. In no acute distress. Skin: No jaundice or cyanosis. Good skin turgor. Neck: Full range of motion. Supple. Respiratory: Lungs are clear to auscultation bilaterally. No bony chest wall tenderness. Cardiovascular: The heart has a regular rate and rhythm without murmur. Lower extremities: No lower extremity edema. Distal pulses are easily palpated. No calf tenderness to palpation. Gastrointestinal: Surgical incisions are intact, without erythema or drainage. Still some TTP RUQ and epigastric area. The abdomen is otherwise soft, nondistended Psychiatric: Lucid and oriented. Memory intact. Neurologic: No focal deficits. Speech is clear. No facial drooping. Objective Data Vital Signs Vital Signs: Vital Signs - 24 hr 12/05/20 13:15 12/05/20 17:07 12/05/20 17:22 Temperature 99.2 F 98.3 F Pulse Rate 120 H 98 80 Respiratory Rate 16 14 18 Blood Pressure 123/70 116/72 124/78 Pulse Oximetry 95 100 100 12/05/20 17:37 12/05/20 17:53 12/05/20 18:08 Temperature Pulse Rate 85 81 82 Respiratory Rate 16 14 16 Blood Pressure 126/79 122/72 114/66 Pulse Oximetry 96 95 94 12/05/20 18:23 12/05/20 19:00 12/05/20 19:30 Temperature 97.0 F L
--- NOTE | 2020-12-06 12:40 | PM.PNGS ---
Progress Note: A&P Assessment and Plan (1) Chronic cholecystitis due to cholelithiasis with choledocholithiasis: Onset Date: ~11/2020 Code(s): K80.64 - Calculus of gallbladder and bile duct with chronic cholecystitis without obstruction Status: Acute Assessment and Plan: doing well postop day 1 status post laparoscopic cholecystectomy with intraoperative cholangiogram. ( Common bile duct clear on cholangiogram) patient's bilirubin normal today with only slight elevation of intrinsic liver enzymes. I believe her duct is cleared and hopefully her pancreatitis will gradually resolve. Agree with only clear liquids for another 24 hours and see what the lipase is like tomorrow morning. (2) Elevated liver enzymes: Onset Date: ~11/2020 Code(s): R74.8 - Abnormal levels of other serum enzymes Status: Acute Assessment and Plan: Improving with now only the intrinsic liver enzymes up. Total bili and direct bili totally normal (3) Gallstone pancreatitis: Onset Date: ~11/2020 Code(s): K85.10 - Biliary acute pancreatitis without necrosis or infection Status: Resolved Assessment and Plan: The lipase still somewhat elevated today but I suspect this will come down with bowel rest. Agree with only clear liquids today but encouraged patient to be up and walking. Repeat lipase in a.m. and if it continues to come down could possibly be discharged tomorrow if feeling better. (4) Depression: Onset Date: Unknown Code(s): F32.9 - Major depressive disorder, single episode, unspecified Status: Acute Assessment and Plan: Okay with me to restart oral meds with sips for this. Subjective Subjective Date/Time Seen: 12/06/20 12:40 Post Op day: 1 ( doing okay postop day 1 after lap isabella with IOC) Patient reports: no new complaints Interval history: patient states that in general she feels better this morning than she did yesterday morning. Still occasionally been nauseated. Still has some upper abdominal pain radiating to the back. Tolerating some liquids but taking some nausea medicine. She is still requiring some occasional IV Dilaudid for discomfort in the upper abdomen. Review of Systems Review of Systems: All systems reviewed & are unremarkable except as noted in HPI and below Constitutional: Constitutional: Reports as per HPI, Denies chills and Denies fever(s) Cardiovascular: Cardiovascular: Denies chest pain and Denies dyspnea Respiratory: Respiratory: Reports no additional respiratory complaints and Denies dyspnea Gastrointestinal: Gastrointestinal: Reports as per HPI, Reports bloating ( mild), Denies dysphagia, Reports nausea ( mild helped with Zofran) and Denies vomiting Genitourinary: Comments: No urinary frequency or burning Musculoskeletal: Musculoskeletal: Reports no additional musculoskeletal complaints Neurologic: Denies memory loss Psychiatric: Psychiatric: Denies anxiety and Denies memory loss Exam Const: General: cooperative, comfortable, alert and awake Orientation/consciousness: patient oriented x3 HENMT: Head: normal to inspection Mouth: Yes moist mucous membranes Eyes: Sclera: sclerae normal Pupils: Equal, round and reactive pupils present Neck: Neck: normal visual inspection and no JVD Chest: Chest palpation & inspection: normal inspection of the chest Resp: Effort & Inspection: normal respiratory effort Auscultation: clear to auscultation bilaterally Cardio: Jugular venous distension: no JVD Rate: regular rate GI: Inspection: incision ( clean and dry with surgical glue in place) and no visible herniation GI Palp: Yes abdominal tenderness ( mild upper abdominal and incisional) Auscultation: Hypoactive bowel sounds present : Manual OB Exam: Deferred manual OB exam Neuro: General: patient oriented x3 Cranial nerves: Yes Equal, round and reactive pupils present Objective Data Vital Signs Vital Si
[2020-12-06] MEDS: ACETAMINOPHEN 325 MG TABLET 650 MG PO (20:52)
[2020-12-07] MEDS: SENNA/DOCUSATE SODIUM TABLET 2 TAB PO ×2 (00:01→20:24)
[2020-12-07] MEDS: HYDROmorphone HCL INJ (*CRX) 1 MG/ML SYR 0.5 MG IV PUSH ×3 (00:01→06:47)
[2020-12-07 05:28] VITALS: BP 118/60; PULSE 108; RESP 18; TEMP 36.6; O2SAT 95
[2020-12-07] MEDS: ACETAMINOPHEN 325 MG TABLET 650 MG PO (06:07)
[2020-12-07 06:35] LABS: Alanine Aminotransferase 114 U/L (4-35); Albumin Level 2.7 g/dL (3.5-5.1); Alkaline Phosphatase 112 U/L (38-126); Anion Gap 8 mmol/L (8-16); Aspartate Amino Transferase 28 U/L (14-36); Bilirubin,Total 0.6 mg/dL (0.2-1.3); Blood Urea Nitrogen 5 mg/dL (7-17); Calcium 8.1 mg/dL (8.4-10.2); Carbon Dioxide 25 mmol/L (22-30); Chloride 102 mmol/L (98-107); Estimated CRCL calculation 132 ml/min; Estimated Glomerular Filt Rate > 60; Glucose 82 mg/dL (65-110); Lipase 460 U/L (23-300); Potassium 3.8 mmol/L (3.4-5.0); Sodium 135 mmol/L (137-145)
[2020-12-07] MEDS: ENOXAPARIN 40 MG/0.4 ML SYRINGE SUB-Q (09:05)
[2020-12-07] MEDS: HYDROcodone/acetaminophen (*CRX) 5-325 MG TABLET 1 TAB PO ×3 (11:05→22:25)
[2020-12-07 12:00] LABS: Add Urine Microscopic? YES; Appearance Urine Clear (Clear); Bilirubin Urine Negative (Negative); Blood Urine 2+ (Negative); Color Urine Yellow (Yellow); Glucose Urine UA Negative (Negative); Ketones Urine Negative (Negative); Leukocyte Esterase Ur Negative LEU/UL (NEGATIVE); Nitrate Urine Negative (Negative); Protein Urine Negative (Negative); RBC Urine 0-2 /hpf (0-2); Specific Grav Ur 1.006 (1.001-1.035); Squamous Epithelial Cell Urine Few /hpf (Few); Urobilinogen Urine Negative mg/dL (<2.0); WBC Urine 0-3 /hpf (0-3)
--- NOTE | 2020-12-07 12:39 | PM.PNGS ---
Progress Note: A&P Assessment and Plan (1) Chronic cholecystitis due to cholelithiasis with choledocholithiasis: Onset Date: ~11/2020 Code(s): K80.64 - Calculus of gallbladder and bile duct with chronic cholecystitis without obstruction Status: Acute Assessment and Plan: Continuing to improve. Fever last night, but might be related to atelectasis. No fevers today and WBC normal. LFT's and Lipase normalizing. OK to discharge from surgical standpoint. Follow up with Dr. Haskins in 2 weeks. (2) Gallstone pancreatitis: Onset Date: ~11/2020 Code(s): K85.10 - Biliary acute pancreatitis without necrosis or infection Status: Resolved Subjective Subjective Date/Time Seen: 12/07/20 12:39 Interval history: Doing well. Tolerating diet. Fever last night, but afebrile today. No other complaints. Exam GI: Inspection: non-distended and incision (intact with glue) GI Palp: Yes Soft to palpation, Yes Tenderness to palpation present (GI) (incisional), No Guarding due to palpation present (GI) and No Rebound tenderness present Auscultation: normal bowel sounds Objective Data Vital Signs Vital Signs: Vital Signs - 24 hr 12/06/20 18:03 12/06/20 20:00 12/06/20 20:04 Temperature 38.3 C H 39.2 C H 39.2 C H Pulse Rate 113 H 125 H 125 H Respiratory Rate 18 18 18 Blood Pressure 121/66 142/73 H 142/73 H Pulse Oximetry 94 96 94 12/06/20 20:52 12/06/20 21:50 12/06/20 22:08 Temperature 39.2 C H 37.9 C H Pulse Rate Respiratory Rate Blood Pressure Pulse Oximetry 96 12/06/20 22:36 12/07/20 05:28 Temperature 37.9 C H 36.6 C Pulse Rate 108 H Respiratory Rate 18 Blood Pressure 118/60 Pulse Oximetry 95 Intake/Output Intake/Output: Intake & Output 12/04/20 12/05/20 12/06/20 12/07/20 23:59 23:59 23:59 23:59 Intake Total 3200 2800 2220 840 Output Total 1200 1500 2950 900 Balance 1999 1300 -730 -60 Meds/Results Medications: Active Medications Generic Name Dose Route Start Last Admin Trade Name Freq PRN Reason Stop Dose Admin Acetaminophen 650 mg 12/06/20 20:19 12/07/20 06:07 Acetaminophen 325 Mg Tablet PO 650 mg Q4H PRN Administration Mild Pain (1-3) or Fever Hydrocodone Bitart/Acetaminophen 1 tab 12/07/20 10:45 12/07/20 11:05 Hydrocodone/Acetaminophen (*Crx) 5-325 Mg Tablet PO 1 tab Q4H PRN Administration Pain Rated 7-10 Enoxaparin Sodium 40 mg 12/06/20 09:00 12/07/20 09:05 Enoxaparin 40 Mg/0.4 Ml Syringe SUB-Q 40 mg DAILY JOSE Administration Hydromorphone HCl 0.5 mg 12/07/20 10:46 Hydromorphone Hcl Inj (*Crx) 1 Mg/Ml Syr IV PUSH Q3H PRN Severe uncontrolled pain Piperacillin/Tazobactam/Dextrose 3.375 gm in 50 mls @ 100 mls/hr 12/01/20 12:00 12/07/20 11:58 Zosyn 3.375 Gm/D5w 50ml Pm IVPB Infused Q6H JOSE Infusion Naloxone HCl 0.1 mg 12/05/20 18:48 Naloxone Hcl 0.4 Mg/Ml Vial IV PUSH Q2M PRN Opiate Reversal Ondansetron HCl 4 mg 12/01/20 06:36 12/06/20 03:08 Ondansetron Inj 4 Mg/2 Ml Vial IV PUSH 4 mg Q4H PRN Administration Nausea Ondansetron HCl 4 mg 12/03/20 16:24 12/05/20 17:41 Ondansetron Inj 4 Mg/2 Ml Vial IV PUSH 4 mg ONCE PRN Administration Nausea Senna/Docusate Sodium 2 tab 12/05/20 21:00 12/07/20 00:01 Senna/Docusate Sodium Tablet PO 2 tab HS JOSE Administration Tramadol HCl 50 mg 12/07/20 10:45 Tramadol Hcl (*Crx) 50 Mg Tablet PO Q4H PRN Pain Rated 4-6 Radiology Results: ITS Impressions Abdomen/Pelvis CT 12/01/20 10:03 IMPRESSION: 1. Cholelithiasis. Mild gallbladder wall thickening could reflect cholecystitis however the gallbladder is not distended. Consider correlation with ultrasound. MRCP 12/02/20 12:05 IMPRESSION: 1. Choledocholithiasis with mild intrahepatic and extrahepatic biliary dilatation. 2. Cholelithiasis without evidence of cholecystitis. Endo Retro Cholangi
[2020-12-07] MEDS: traMADol HCL (*CRX) 50 MG TABLET PO ×2 (13:49→18:55)
--- NOTE | 2020-12-07 13:53 | WPDGIPROGNO ---
Progress Note: A&P Assessment and Plan (1) Chronic cholecystitis due to cholelithiasis with choledocholithiasis: Onset Date: ~11/2020 Code(s): K80.64 - Calculus of gallbladder and bile duct with chronic cholecystitis without obstruction Status: Acute Assessment and Plan: ercp 4 days ago with successful removal of stone and sphincterotomy then had more pain and worsening pancreatitis but she is doing better now lipase improved and almost back to normal s/p lap isabella, tolerating diet fever last night but today afebrile and overall much better will need follow-up with surgery (2) Gallstone pancreatitis: Onset Date: ~11/2020 Code(s): K85.10 - Biliary acute pancreatitis without necrosis or infection Status: Resolved Assessment and Plan: improved and better (3) Elevated liver enzymes: Onset Date: ~11/2020 Code(s): R74.8 - Abnormal levels of other serum enzymes Status: Acute Assessment and Plan: continue to improve (4) RUQ pain: Code(s): R10.11 - Right upper quadrant pain Status: Acute Subjective Date/time seen: 12/07/20 13:53 Interval history: pain is better today, yesterday had fever but today afebrile, tolerating diet Review of Systems Review of Systems: All systems reviewed & are unremarkable except as noted in HPI and below Exam Const: General: comfortable and no acute distress HENMT: General nose exam: Normal nares present Eyes: Sclera: sclerae normal Neck: Neck: supple Resp: Effort & Inspection: normal respiratory effort Auscultation: clear to auscultation bilaterally Cardio: Rate: regular rate GI: GI Palp: Yes Soft to palpation and No Guarding due to palpation present (GI) Auscultation: normal bowel sounds Other: surgical site minimally tender Skin: General skin exam: no rashes or lesions noted Neuro: Speech: normal speech Motor exam (neuro): Normal motor muscle tone present throughout Extrem: General: normal to inspection Psych: Mental Status: mental status grossly normal Objective Data Vital Signs Vital Signs: Vital Signs - 24 hr 12/06/20 18:03 12/06/20 20:00 12/06/20 20:04 Temperature 100.9 F H 102.6 F H 102.6 F H Pulse Rate 113 H 125 H 125 H Respiratory Rate 18 18 18 Blood Pressure 121/66 142/73 H 142/73 H Pulse Oximetry 94 96 94 12/06/20 20:52 12/06/20 21:50 12/06/20 22:08 Temperature 102.6 F H 100.2 F H Pulse Rate Respiratory Rate Blood Pressure Pulse Oximetry 96 12/06/20 22:36 12/07/20 05:28 Temperature 100.2 F H 97.9 F Pulse Rate 108 H Respiratory Rate 18 Blood Pressure 118/60 Pulse Oximetry 95 Intake/Output Intake/Output: Intake & Output 12/04/20 12/05/20 12/06/20 12/07/20 23:59 23:59 23:59 23:59 Intake Total 3200 2800 2220 840 Output Total 1200 1500 2950 900 Balance 1999 1300 -730 -60 Meds/Results Medications: Active Medications Generic Name Dose Route Start Last Admin Trade Name Freq PRN Reason Stop Dose Admin Acetaminophen 650 mg 12/06/20 20:19 12/07/20 06:07 Acetaminophen 325 Mg Tablet PO 650 mg Q4H PRN Administration Mild Pain (1-3) or Fever Hydrocodone Bitart/Acetaminophen 1 tab 12/07/20 10:45 12/07/20 11:05 Hydrocodone/Acetaminophen (*Crx) 5-325 Mg Tablet PO 1 tab Q4H PRN Administration Pain Rated 7-10 Enoxaparin Sodium 40 mg 12/06/20 09:00 12/07/20 09:05 Enoxaparin 40 Mg/0.4 Ml Syringe SUB-Q 40 mg DAILY JOSE Administration Hydromorphone HCl 0.5 mg 12/07/20 10:46 Hydromorphone Hcl Inj (*Crx) 1 Mg/Ml Syr IV PUSH Q3H PRN Severe uncontrolled pain Piperacillin/Tazobactam/Dextrose 3.375 gm in 50 mls @ 100 mls/hr 12/01/20 12:00 12/07/20 11:58 Zosyn 3.375 Gm/D5w 50ml Pm IVPB Infused Q6H JOSE Infusion Naloxone HCl 0.1 mg 12/05/20 18:48 Naloxone Hcl 0.4 Mg/Ml Vial IV PUSH Q2M PRN Opiate Reversal Ondansetron HCl 4 mg 12/01/20 06:36 12/06/20 03:08 O
[2020-12-07 14:04] VITALS: BP 126/72; PULSE 93; RESP 18; TEMP 37.2
--- NOTE | 2020-12-07 14:21 | PM.IMPN ---
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 Blood cultures which are pending, urine appears normal and urine culture pending. Will also order FLU Swab, COVID Swab and MRSA Swab. I will add vancomycin for the only missing coverage of Staph/MRSA since she has been on Zosyn since arrival. Continue monitoring and she must be afebrile for at least 24 hrs prior to discharge. (2) Choledocholithiasis with acute cholecystitis with obstruction: Code(s): K80.43 - Calculus of bile duct with acute cholecystitis with obstruction Status: Deleted Assessment and Plan: Presented with a classic right upper quadrant pain, was not associated with nausea or vomiting CT abdomen pelvis, cholelithiasis, mild gallbladder wall thickening likely reflecting cholecystitis were found. Liver function tests were elevated with a high lipase. Total bilirubin is 4.2, AST 785, ALT 1186, alk-phos 320. Lipase is 2847 MRCP showed Choledocholithiasis with mild intrahepatic and extrahepatic biliary dilatation. Cholelithiasis without evidence of cholecystitis. GI was consulted who preformed ERCP 12/03/20 who preformed removal of calculi/debris and sphincterotomy. Lab [facility] post-op Day #2 12/07: Pain and LFTS/Lipase trending down today. Feeling well, but still having some abd pain. Tolerating clear liquid. Continue monitoring. (3) Gallstone pancreatitis: Onset Date: ~11/2020 Code(s): K85.10 - Biliary acute pancreatitis without necrosis or infection Status: Resolved Assessment and Plan: pancreatitis is likely secondary to gallstones, possibly related to obstruction of the ampulla secondary to stone or sludge. Cholecystectomy is indicated to prevent recurrence managed with fluid replacement, pain control, clinical monitoring (4) Depression: Onset Date: Unknown Code(s): F32.9 - Major depressive disorder, single episode, unspecified Status: Acute Assessment and Plan: Continue home medications (5) Post-term : Onset Date: ~09/2020 Code(s): O48.0 - Post-term Status: Acute Assessment and Plan: Patient is currently nursing Time Spent With Patient Time with patient: 25 - 35 minutes Subjective Date/time seen: 12/07/20 14:21 Interval history: Date of service 12/07/2020: She reports fevers last night and associated cough with yellow/green phlegm production. She still canont take a deep breath secondary to abdominal discomfort. She is tolerating a clear liquid diet without any issues. She does report dark urine with a foul odor to it. Denies any issues with breast pumping, or symptoms of mastitis with warmth, engorgement or redness of breasts. Denies any chest pain, SOB, leg swelling, calf pain, or any other symptoms at this time. Review of Systems Review of Systems: All systems reviewed & are unremarkable except as noted in HPI and below Exam Narrative: General: 20-year-old woman sitting up in bed on her computer. Appears comfortable. In no acute distress. Skin: No jaundice or cyanosis. Good skin turgor. Neck: Full range of motion. Supple. Respiratory: Unable to take deep breaths to fully auscultate her bilateral lower lung [place]. Otherwise, no wheezing, rales or rhonchi auscultated. No bony chest wall tenderness. Cardiovascular: The heart has a regular rate and rhythm without murmur. Lower extremities: No lower extremity edema. Distal pulses are easily palpated. No calf tenderness to palpation. Gastrointestinal: Surgical incisions are intact, without erythema or drainage. Still some TTP RUQ and epigastric area. The abdomen is
[2020-12-07 21:17] VITALS: O2SAT 96
[2020-12-07 21:22] VITALS: BP 124/68; PULSE 95; RESP 16; TEMP 36.5; O2SAT 97
[2020-12-08 05:03] VITALS: BP 110/64; PULSE 100; RESP 16; TEMP 37; O2SAT 98
[2020-12-08] MEDS: HYDROcodone/acetaminophen (*CRX) 5-325 MG TABLET 1 TAB PO (05:04)
[2020-12-08 06:08] LABS: Basophils Percent Auto 0.5 % (0.2-1.2); Eosinophils Absolute Auto 0.2 K/mm3 (0-0.3); Eosinophils Percent Auto 3.8 % (0-4.4); Hematocrit 35.5 % (37.0-47.0); Hemoglobin 11.3 g/dL (12.0-15.0); Immature Granulocyte Absolute 0.01 K/mm3 (0.00-0.031); Immature Granulocyte Percent A 0.2 % (0-0.5); Lymphocytes Absolute Auto 1.04 K/mm3 (0.9-3.2); Lymphocytes Percent Auto 24.9 % (18.3-44.2); Mean Corpuscular HGB Conc 31.8 g/dl (32-36); Mean Corpuscular Hemoglobin 28.6 pg (26-34); Mean Corpuscular Volume 89.9 fl (80-100); Mean Platelet Volume 9.8 fl (7.4-10.4); Monocytes Absolute Auto 0.3 K/mm3 (0.1-0.6); Monocytes Percent Auto 6.2 % (2.6-8.5); Neutrophils Absolute Auto 2.7 K/mm3 (1.3-6.7); Neutrophils Percent Auto 64.4 % (45.5-73.1); Platelet Count Result 306 k/mm3 (150-375); Red Blood Count 3.95 M/mm3 (4.2-5.4); Red Cell Distribution Width 14.3 % (11.5-14.5); White Blood Count 4.2 K/mm3 (4.5-10.0)
[2020-12-08 06:23] LABS: Alanine Aminotransferase 94 U/L (4-35); Albumin Level 3.1 g/dL (3.5-5.1); Alkaline Phosphatase 111 U/L (38-126); Anion Gap 9 mmol/L (8-16); Aspartate Amino Transferase 30 U/L (14-36); Bilirubin,Total 0.5 mg/dL (0.2-1.3); Blood Urea Nitrogen 3 mg/dL (7-17); Calcium 8.5 mg/dL (8.4-10.2); Carbon Dioxide 29 mmol/L (22-30); Chloride 101 mmol/L (98-107); Estimated CRCL calculation 115 ml/min; Estimated Glomerular Filt Rate > 60; Glucose 95 mg/dL (65-110); Lipase 264 U/L (23-300); Sodium 139 mmol/L (137-145)
[2020-12-08] MEDS: ENOXAPARIN 40 MG/0.4 ML SYRINGE SUB-Q (08:25)
[2020-12-08] MEDS: POTASSIUM CHLORIDE 20 MEQ TABLET 60 MEQ PO (09:47)
[2020-12-08] MEDS: traMADol HCL (*CRX) 50 MG TABLET PO (09:50)
[2020-12-08 10:21] LABS: Influenza Control Positive
[2020-12-08 10:29] LABS: CRP 18.4 mg/dL (<1.0); Lactate Dehydrogenase 615 U/L (313-618)
[2020-12-08 10:41] LABS: EDCOVIDSCREEN Positive (Negative)
--- NOTE | 2020-12-08 11:19 | PM.DS ---
DS: Admitting Diagnosis Discharge Date 12/08/20 Admitting Diagnosis Abd pain DS: Discharge Diagnosis Discharge Diagnosis (1) Fever: Code(s): R50.9 - Fever, unspecified Status: Acute Assessment and Plan: Patient 20-year-old female who recently gave 1.5 months ago and is currently , presents the emergency department with chief complaint of right upper quadrant abdominal pain after eating. Initial vitals showed low BP 98/65, HR 64, afebrile, normal respiratory rate and oxygen on room air. Initial labs showed normal CBC with diff and elevated T christofer 4.2, AST 785, ALT 1186, Alk Phos [address] Abd/Pelvis showed Cholelithiasis. Mild gallbladder wall thickening could reflect cholecystitis however the gallbladder is not distended. The patient was admitted and started on IV antibiotics for possible cholecystitis. Consult to GI who preformed MRCP showing Choledocholithiasis with mild intrahepatic and extrahepatic biliary dilatation. Cholelithiasis without evidence of cholecystitis. and ERCP preformed removal of calculi/debris and sphincterotomy. After her ERCP her LFTs and Lipase increased as well as her pain. She was kept NPO for 24 hours with pain control and her numbers were trending down. She underwent Lap Aspen by Dr. Haskins 12/05/20 and tolerated procedure well. She was kept overnight to continue monitoring her elevated LFTS and Lipase. Then evening of 12/06/20 she spiked a fever of 102.6F, and became tachycardic with complaints of a cough. CXR which showed Bibasilar pneumonia with small pleural effusions. Blood cultures were ordered and show no growth to date. UA appears normal and urine culture showing no growth. FLU Swab negative. COVID Swab was POSITIVE. She was diagnosed with COVID 19 on 12/08/20 with symptoms starting 12/06/20. She has not been vaccinated. She is otherwise feeling well at this time without any complaints. States cough is improved. Denies SOB, fever, chills. Tolerating diet without any issues. She is stable at this time for discharge home to continue isolating from her family and 2 month old baby for at least 10 days. Return to ER warnings given. She understands and agrees with the plan. All questions answered. (2) Choledocholithiasis with acute cholecystitis with obstruction: Code(s): K80.43 - Calculus of bile duct with acute cholecystitis with obstruction Status: Deleted Assessment and Plan: (3) Gallstone pancreatitis: Onset Date: ~11/2020 Code(s): K85.10 - Biliary acute pancreatitis without necrosis or infection Status: Resolved Assessment and Plan: (4) Depression: Onset Date: Unknown Code(s): F32.9 - Major depressive disorder, single episode, unspecified Status: Acute Assessment and Plan: (5) Post-term : Onset Date: ~09/2020 Code(s): O48.0 - Post-term Status: Acute Assessment and Plan: DS: Summary Hospital Course Hospital Course: See above Status at Discharge Cognitive/behavioral status at discharge: Stable, improved. Time Spent with Patient Time attestation: Total time spent providing and/or coordinating discharge services: 43 Time spent: Greater than 30 minutes Exam Narrative: General: 20-year-old woman sitting up in bed on her computer Facetiming with someone. Appears comfortable. In no acute distress. Skin: No jaundice or cyanosis. Good skin turgor. Neck: Full range of motion. Supple. Respiratory: Lungs are clear to auscultation. No wheezing, rales or rhonchi auscultated. No bony chest wall tenderness. Cardiovascular: The heart has a regular rate and rhythm without murmur. Lower extremities: No lower extremity edema. Distal pulses are easily palpated. No calf tenderness to palpation. Gastrointestinal: Some postop tenderness diffusely. The abdomen is otherwise soft, nondistended Psychiatric: Lucid and
[2020-12-08 18:23] LABS: SARS-CoV-2 RNA PCR Positive
== END 2020-12-08 12:50 | disposition home or self-care (01) | DRG 263 ==
LOC: ANHED 07:06 → ANH3MED 10:17
PROVIDERS: Internal Medicine Gastroenterology; Nurse Practitioner; Physician Assistant; Surgery; Admitting Provider Internal Medicine; Emergency Provider Emergency Medicine; PCP Obstetrics & Gynecology; Visit Provider Physician Assistant
PROC: 0FC98ZZ Extirpation of Matter from Common Bile Duct, Via Natural or Artificial Opening Endoscopic (ICD-10-PCS; CPT 43260; principal; 2020-12-03 13:30)
PROC: 0FT44ZZ Resection of Gallbladder, Percutaneous Endoscopic Approach (ICD-10-PCS; CPT 47562; principal; 2020-12-05 14:30)
DX: K85.10 Biliary acute pancreatitis without necrosis or infection (principal); K80.65 Calculus of gallbladder and bile duct with chronic cholecystitis with obstruction; F32.9 Major depressive disorder, single episode, unspecified; D64.9 Anemia, unspecified; R00.0 Tachycardia, unspecified; U07.1 COVID-19; J12.82 Pneumonia due to coronavirus disease 2019
CPT/HCPCS: 36415; 71046; 74177; 74183; 74300; 74329; 76376; 80048; 80053; 80076; 81001; 81025; 82150; 82248; 82728; 83615; 83690; 83735; 85025; 85027; 86140; 86850; 86900; 86901; 87040; 87081; 87086; 87426; 87804; 88304; 88305; 96361; 96365; 96366; 96375; 96376; 99285; A9270; A9577; C1713; C9803; G0378; G0379; J0330; J1100; J1170; J1650; J1885; J2250; J2270; J2405; J2543; J2704; J2710; J3010; J3370; J3475; J3480; J7030; J7120; Q9966; Q9967; U0003; U0005

== ENCOUNTER 2022-06-14 06:18 | Emergency (ER) | payer OTHER, SELFPAY ==
[2022-06-14 06:24] VITALS: BP 127/73; PULSE 79; RESP 18; TEMP 36.4; O2SAT 100
--- NOTE | 2022-06-14 06:38 | PC.NURSE ---
Pt states she normally wears glasses but was not for the visual acuity test.
--- NOTE | 2022-06-14 07:48 | ED.EYEPROB ---
HPI - Eye Problem General Chief complaint: Eye Problems Stated complaint: eye swelling x 2 days Time Seen by Provider: 06/14/22 07:04 History of Present Illness HPI Narrative: Patient is a 21-year-old female who presents ER with swelling left eye. Ongoing for 2 days. Associated with thick discharge that made of the eyes shut. No change in vision. Reports her son was recently ill but did not have an eye infection. Denies change in vision. No fevers or chills. No sinus congestion or sore throat or cough. Related Data Home Medications Medication Instructions Recorded Confirmed acyclovir 800 mg tablet 800 mg PO HS 09/21/20 12/25/20 calcium carbonate 600 mg-vitamin 1 tablet PO QPM 09/21/20 12/25/20 D3 10 mcg (400 unit) chewable tablet (Calcium 600 with Vitamin D3) cetirizine 10 mg tablet 10 mg PO DAILY 09/21/20 12/25/20 ferrous sulfate 325 mg (65 mg 325 mg PO HS 09/21/20 12/25/20 iron) tablet folic acid 1 mg tablet 2 mg PO BID 09/21/20 12/25/20 vit no.95-ferrous 1 tablet PO HS 09/21/20 12/25/20 fumarate 28 mg-folic acid 800 mcg tablet () sertraline 50 mg tablet 50 mg PO DAILY 09/21/20 12/25/20 aspirin 81 mg tablet 81 mg PO DAILY 12/01/20 12/25/20 drospirenone (contraceptive) 4 mg 4 mg PO DAILY 12/01/20 12/25/20 (28) tablet (Slynd) escitalopram oxalate 10 mg tablet 10 mg PO DAILY 12/01/20 12/25/20 Allergies Allergy/AdvReac Type Severity Reaction Status Date / Time No Known Allergies Allergy Verified 06/14/22 06:49 Review of Systems Constitutional: Constitutional: Denies chills and Denies fever(s) Eyes: Eyes: Denies change in vision and Denies photophobia Comments: Swelling left eye with redness and discharge ENT: Denies nasal congestion and Denies sore throat PMFSH Past Medical History Medical History (Updated 06/14/22 @ 07:49 by Jim Lyons MD) Anemia Chronic idiopathic constipation COVID-19 Depression (Unknown) Elevated liver enzymes (~11/2020) Gallstone pancreatitis (~11/2020) History of miscarriage 09-05-2017, 9.5 wks Homozygous MTHFR mutation C677T Post-term (~09/2020) RUQ pain Surgical History Surgical History H/O dilation and curettage Suction dilation & curettage (surg) : 09-05-2017 Family History Family History Grandparent Diabetes mellitus Depression Hypertension Mother Depression Father Hypertension Social History Social History Smoking status: Never smoker Second hand tobacco smoke exposure: No Alcohol intake: never Substance use: never Substance use type: does not use Living arrangements: with family Occupation/Education: occupation 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 HEAD: Normocephalic, atraumatic. EYES: PERRL and EOMI. left upper and lower eyelid swelling with injected conjunctiva and discharge noted. Fluorescein staining performed to the left eye and there is no bruising noted. No foreign body. ENT: Mucous membranes moist. NEURO: Alert and oriented x3. PSYCH: Normal mood and affect. Course Course Emergency Course: Patient resting comfortably. Discussed treatment plan discharge home. Vital Signs Vital signs: Vital Signs Temperature 97.5 F L 06/14/22 06:24 Pulse Rate 79 06/14/22 06:24 Respiratory Rate 18 06/14/22 06:24 Blood Pressure 127/73 06/14/22 06:24 Pulse Oximetry 100 06/14/22 06:24 Oxygen Delivery Room Air 06/14/22 06:24 Temperature 97.5 F L 06/14/22 06:24 Pulse Rate 79 0
== END 2022-06-14 08:00 | disposition home or self-care (01) ==
PROVIDERS: Emergency Provider Emergency Medicine
DX: H10.9 Unspecified conjunctivitis (principal); D64.9 Anemia, unspecified; K59.04 Chronic idiopathic constipation; F32.A Depression, unspecified; Z86.16 Personal history of COVID-19
CPT/HCPCS: 99283

== ENCOUNTER 2023-02-25 07:44 | Emergency (ER) | payer OTHER, SELFPAY ==
[2023-02-25 07:53] VITALS: BP 122/80; PULSE 112; RESP 20; TEMP 36.6; O2SAT 97
--- NOTE | 2023-02-25 08:04 | ED.NAVMDI ---
HPI - Nausea/Vomiting/Diarrhea General Chief complaint: Nausea/Vomiting/Diarrhea Stated complaint: n/v 16 weeks Time Seen by Provider: 02/25/23 07:59 History of Present Illness HPI Narrative: Patient is a 22-year-old female at 16 weeks gestation is presenting this morning to the emergency department complaining nausea and vomiting. Patient states that she has been unable to keep any food or water down for the past 24 hours. Patient states that she has been taking Zofran at home, however, she could not keep it down. Patient is currently denying any vaginal bleeding or spotting and denies any abdominal pain. Patient also denies any chest pain, shortness of breath, dysuria, hematuria, constipation, diarrhea, melena, hematochezia, fevers or chills. Patient also denies any headaches, dizziness, lightheadedness, blurry visions, focal weakness, numbness and or tingling. There are no other modifying, alleviating, or precipitating factors at this time. Related Data Home Medications Medication Instructions Recorded Confirmed acyclovir 800 mg tablet 800 mg PO HS 09/21/20 12/25/20 calcium carbonate 600 mg-vitamin 1 tablet PO QPM 09/21/20 12/25/20 D3 10 mcg (400 unit) chewable tablet (Calcium 600 with Vitamin D3) cetirizine 10 mg tablet 10 mg PO DAILY 09/21/20 12/25/20 ferrous sulfate 325 mg (65 mg 325 mg PO HS 09/21/20 12/25/20 iron) tablet folic acid 1 mg tablet 2 mg PO BID 09/21/20 12/25/20 vit no.95-ferrous 1 tablet PO HS 09/21/20 12/25/20 fumarate 28 mg-folic acid 800 mcg tablet () sertraline 50 mg tablet 50 mg PO DAILY 09/21/20 12/25/20 aspirin 81 mg tablet 81 mg PO DAILY 12/01/20 12/25/20 drospirenone (contraceptive) 4 mg 4 mg PO DAILY 12/01/20 12/25/20 (28) tablet (Slynd) escitalopram oxalate 10 mg tablet 10 mg PO DAILY 12/01/20 12/25/20 Allergies Allergy/AdvReac Type Severity Reaction Status Date / Time No Known Allergies Allergy Verified 02/25/23 07:57 Review of Systems Review of Systems: All systems are reviewed and are negative unless stated otherwise in the HPI. [facility] Past Medical History Medical History Anemia Chronic idiopathic constipation COVID-19 Depression (Unknown) Elevated liver enzymes (~11/2020) Gallstone pancreatitis (~11/2020) History of miscarriage 09-05-2017, 9.5 wks Homozygous MTHFR mutation C677T Post-term (~09/2020) RUQ pain Surgical History Surgical History H/O dilation and curettage Suction dilation & curettage (surg) : 09-05-2017 Family History Family History Grandparent Diabetes mellitus Depression Hypertension Mother Depression Father Hypertension Social History Social History Smoking status: Never smoker Second hand tobacco smoke exposure: No Alcohol intake: never Substance use: never Substance use type: does not use Living arrangements: with family Occupation/Education: occupation 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 HEENT: PERRL, no rhinorrhea, no post nasal drip, oropharynx clear. Neck: Trachea midline, no JVD, no lymphadenopathy. Cardiovascular: Tachycardic with regular rhythm, no murmurs, rubs or gallops, no peripheral edema. Respiratory: Clear to auscultation bilaterally, no tachypnea, no wheezing, no rhonchi, no rubs, no respiratory distress. Abdomen: Soft, nontender, nondistended, no rebound, no guarding, no peritoneal signs. Musculoskeletal: No joint swelling or deformity, no
[2023-02-25 08:07] LABS: Basophils Percent Auto 0.2 % (0.2-1.2); Eosinophils Absolute Auto 0.1 K/mm3 (0-0.3); Eosinophils Percent Auto 0.4 % (0-4.4); Hematocrit 40.7 % (37.0-47.0); Hemoglobin 13.7 g/dL (12.0-15.0); Immature Granulocyte Absolute 0.06 K/mm3 (0.00-0.031); Immature Granulocyte Percent A 0.5 % (0-0.5); Lymphocytes Absolute Auto 0.64 K/mm3 (0.9-3.2); Lymphocytes Percent Auto 5.1 % (18.3-44.2); Mean Corpuscular HGB Conc 33.7 g/dl (32-36); Mean Corpuscular Hemoglobin 30.8 pg (26-34); Mean Corpuscular Volume 91.5 fl (80-100); Mean Platelet Volume 9.9 fl (7.4-10.4); Monocytes Absolute Auto 0.4 K/mm3 (0.1-0.6); Monocytes Percent Auto 3.4 % (2.6-8.5); Neutrophils Absolute Auto 11.4 K/mm3 (1.3-6.7); Neutrophils Percent Auto 90.4 % (45.5-73.1); Platelet Count Result 265 k/mm3 (150-375); Red Blood Count 4.45 M/mm3 (4.2-5.4); White Blood Count 12.6 K/mm3 (4.5-10.0)
[2023-02-25 08:09] VITALS: BP 112/81; PULSE 110
[2023-02-25] MEDS: SODIUM CHLORIDE 0.9% IV 1,000 ML 999 ML IV CONT ×2 (08:13→08:54)
[2023-02-25] MEDS: ONDANSETRON INJ 4 MG/2 ML VIAL IV PUSH (08:13)
[2023-02-25 08:16] VITALS: BP 114/70; PULSE 100
[2023-02-25 08:16] LABS: Alanine Aminotransferase 17 U/L (6-35); Albumin Level 4.2 g/dL (3.5-5.1); Alkaline Phosphatase 81 U/L (38-126); Anion Gap 9 mmol/L (8-16); Aspartate Amino Transferase 19 U/L (14-36); Bilirubin,Total 0.6 mg/dL (0.2-1.3); Blood Urea Nitrogen 6 mg/dL (7-17); Calcium 9.3 mg/dL (8.4-10.2); Carbon Dioxide 22 mmol/L (22-30); Chloride 105 mmol/L (98-107); Estimated CRCL calculation 198 ml/min; Estimated Glomerular Filt Rate > 60; Glucose 107 mg/dL (65-110); Lipase 52 U/L (23-300); Potassium 3.7 mmol/L (3.4-5.0); Sodium 136 mmol/L (137-145)
[2023-02-25 08:18] VITALS: BP 116/80; PULSE 132
[2023-02-25 08:24] LABS: Appearance Urine Clear (Clear); Bacteria Urine Rare /hpf; Bilirubin Urine Negative (Negative); Blood Urine Negative (Negative); Color Urine Dark Yellow (Yellow); Glucose Urine UA Negative (Negative); Ketones Urine Trace mg/dL (Negative); Leukocyte Esterase Ur Trace LEU/UL (Negative); Nitrate Urine Negative (Negative); Non Pathogenic Casts 0-2; Protein Urine 1+ mg/dL (Negative); Squamous Epithelial Cell Urine Few /hpf (Few); WBC Urine 0-5 /hpf
[2023-02-25 08:29] LABS: Add Urine Microscopic? YES
[2023-02-25 08:56] VITALS: BP 120/74; PULSE 96; RESP 15; O2SAT 99
== END 2023-02-25 09:46 | disposition home or self-care (01) ==
PROVIDERS: Emergency Provider Emergency Medicine; PCP Obstetrics & Gynecology
DX: O21.0 Mild hyperemesis gravidarum (principal); Z3A.16 16 weeks gestation of pregnancy; O99.342 Other mental disorders complicating pregnancy, second trimester; F32.A Depression, unspecified
CPT/HCPCS: 36415; 80053; 81001; 83690; 85025; 96374; 99284; J2405; J7030

== ENCOUNTER 2023-08-06 20:42 | Inpatient (IN) | payer OTHER, SELFPAY ==
[2023-08-06] MEDS: LACTATED RINGERS 1,000 ML 125 ML IV CONT (23:20)
[2023-08-06 23:33] VITALS: BMI 38.9
--- NOTE | 2023-08-06 23:35 | LDADM ---
This patient, Mary Newberry, was admitted to Labor/Delivery/Recovery 105 on 08/06/23 at 20:42. Plans for labor, pain management and were discussed with patient. Patient/family oriented to hospital policies and general routines including ID bracelet, bed and alarms, visiting hours, pain management, procedures, bathroom and other care routines, personal items, smoking policy, room service/diet and guest tray routines, infant security routines, and visiting hours. Patient/Family are encouraged to report perceived risks to care and to ask questions if they do not understand what they are told or what they should do. See OBIX for further documentation.
[2023-08-07] VITALS (89 sets, daily range): BP systolic 98–149; BP diastolic 53–103; PULSE 76–128; RESP 18; TEMP 36.4–37.1; O2SAT 95–100
[2023-08-07 00:22] LABS: HIV 1/2 Ab P24 Ag Result Negative (Negative)
--- NOTE | 2023-08-07 00:30 | WPDANESEPP ---
Anes - Eval Pre Procedure Procedure: Labor epidural Date/Time: 08/07/23 00:30 Surgeon: angie Preop Diagnosis: Abdominal pain with contractions Pre Op Diagnosis: IOL Patient Data Age: 22 Gender: F Height: 1.65 m Weight: 106 kg Last Vital Signs O2 Del Method Room Air 08/06/23 23:34 Allergies Allergy/AdvReac Type Severity Reaction Status Date / Time No Known Allergies Allergy Verified 02/25/23 07:57 Home Medications Medication Instructions Recorded Confirmed Type acyclovir 800 mg tablet 800 mg PO HS 09/21/20 12/25/20 History calcium carbonate 600 mg-vitamin 1 tablet PO QPM 09/21/20 12/25/20 History D3 10 mcg (400 unit) chewable tablet (Calcium 600 with Vitamin D3) cetirizine 10 mg tablet 10 mg PO DAILY 09/21/20 12/25/20 History ferrous sulfate 325 mg (65 mg 325 mg PO HS 09/21/20 12/25/20 History iron) tablet folic acid 1 mg tablet 2 mg PO BID 09/21/20 12/25/20 History vit no.95-ferrous 1 tablet PO HS 09/21/20 12/25/20 History fumarate 28 mg-folic acid 800 mcg tablet () sertraline 50 mg tablet 50 mg PO DAILY 09/21/20 12/25/20 History aspirin 81 mg tablet 81 mg PO DAILY 12/01/20 12/25/20 History drospirenone (contraceptive) 4 mg 4 mg PO DAILY 12/01/20 12/25/20 History (28) tablet (Slynd) escitalopram oxalate 10 mg tablet 10 mg PO DAILY 12/01/20 12/25/20 History erythromycin 5 mg/gram (0.5 %) eye 1 applic LEFT EYE Q6H #3.5 grams 06/14/22 Rx ointment Laboratory Tests 08/06/23 08/06/23 23:25 23:26 WBC Pending RBC Pending Hgb Pending Hct Pending MCV Pending MCH Pending MCHC Pending RDW Pending Plt Count Pending MPV Pending Immature Gran % (Auto) Pending Neut % (Auto) Pending Lymph % (Auto) Pending [place] % (Auto) Pending Eos % (Auto) Pending Baso % (Auto) Pending Lymph # (Auto) Pending [place] # (Auto) Pending Eos # (Auto) Pending Baso # (Auto) Pending Abs Immat Gran (auto) Pending Absolute Neuts (auto) Pending Absolute Nucleated RBC Pending Nucleated RBC % Pending RPR Pending HIV 1&2 Ab/P24 Ag 4thGn Negative (Negative) Blood Type B Positive Antibody Screen Negative : gestational age HCG: positive Patient hx anesthesia problems: none Family hx anesthesia problems: none Results Review: All pre-operative results and documents have been reviewed as part of the pre-operative evaluation. [facility] Past Medical History Medical History Anemia Chronic idiopathic constipation COVID-19 Depression (Unknown) Elevated liver enzymes (~11/2020) Gallstone pancreatitis (~11/2020) History of miscarriage 09-05-2017, 9.5 wks Homozygous MTHFR mutation C677T Post-term (~09/2020) RUQ pain Surgical History Surgical History H/O dilation and curettage Suction dilation & curettage (surg) : 09-05-2017 Family History Family History Grandparent Diabetes mellitus Depression Hypertension Mother Depression Father Hypertension Social History Social History Smoking status: Never smoker Second hand tobacco smoke exposure: No Alcohol intake: never Substance use: never Substance use type: does not use Do You Feel Safe in your Home?: Yes Lack of Transportation: No Lack of Food: Never True Current Housing: I Have Housing Concerned About Future Housing: No Difficulty Paying Gas/Electric Bills: No Difficulty Paying for Meds: No Currently Unemployed: No Education: Grade School Difficulty w/ Childcare or Family Care: No Living arr
[2023-08-07] MEDS: LACTATED RINGERS 1,000 ML 125 ML IV CONT (00:35)
--- NOTE | 2023-08-07 04:01 | P.PCNOB_ITS ---
OB - Vaginal Delivery Note Procedure Delivery date: 08/07/23 Delivery monitor: External FHT and External Uterine Route of delivery: Episiotomy description: None Laceration Description: Periurethral Delivery repair: vicryl Specimen: No Quantitative Blood Loss (ml): 175 Anesthesia type: Epidural Disposition: Floor Complications: No immediate complications Labelle Baby Date of : 08/07/23 Weeks of gestation at delivery: 39 score one minute: 9 score five minutes: 9
[2023-08-07 07:50] LABS: Basophils Percent Auto 0.3 % (0.2-1.2); Eosinophils Absolute Auto 0.2 K/mm3 (0-0.3); Eosinophils Percent Auto 1.4 % (0-4.4); Hemoglobin 11.1 g/dL (12.0-15.0); Immature Granulocyte Absolute 0.07 K/mm3 (0.00-0.031); Immature Granulocyte Percent A 0.6 % (0-0.5); Lymphocytes Absolute Auto 1.92 K/mm3 (0.9-3.2); Lymphocytes Percent Auto 17.6 % (18.3-44.2); Mean Corpuscular HGB Conc 31.7 g/dl (32-36); Mean Corpuscular Hemoglobin 28.6 pg (26-34); Mean Corpuscular Volume 90.2 fl (80-100); Mean Platelet Volume 10.3 fl (7.4-10.4); Monocytes Absolute Auto 0.6 K/mm3 (0.1-0.6); Monocytes Percent Auto 5.4 % (2.6-8.5); Neutrophils Absolute Auto 8.2 K/mm3 (1.3-6.7); Neutrophils Percent Auto 74.7 % (45.5-73.1); Platelet Count Result 317 k/mm3 (150-375); Red Blood Count 3.88 M/mm3 (4.2-5.4); Red Cell Distribution Width 14.6 % (11.5-14.5); White Blood Count 10.9 K/mm3 (4.5-10.0)
[2023-08-07] MEDS: MULTIVIT/MIN/PREN/FOL AC/IRON TABLET 1 TAB PO (08:31)
--- NOTE | 2023-08-07 13:00 | PC.NURSE ---
Introductions were made, then consulted with patient to assess needs related to . Mother is choosing to breastfeed and then supplement with formula if desired. Mother breastfed her first baby and did not have difficulties with latch or milk production. Mother states she does have a pump at home that she used previously and is confident with how to pump and fit her flanges. Mother states she will call out if she needs any assistance. Encouraged her to call out at the next feeding for a latch check. Resources used for education were RN name written on the communication board and the mom/baby guide. Parents voiced understanding of information, demonstrated learning and will call if there is a request for assistance. Reported to the Primary RN.
[2023-08-07] MEDS: WITCH HAZEL 40 PADS 1 PAD TOPICAL (13:09)
[2023-08-07] MEDS: ACETAMINOPHEN 325 MG TABLET 650 MG PO (13:09)
[2023-08-07] MEDS: BENZOCAINE 20% AER SPR (*SP) 56 GM CAN 1 SPRAY TOPICAL (13:10)
[2023-08-07 14:17] LABS: Rapid Plasma Reagin Non-Reactive (NonReactive)
[2023-08-07] MEDS: DOCUSATE SODIUM 100 MG CAPSULE PO (16:28)
--- NOTE | 2023-08-07 17:15 | PC.NURSE ---
Upon entering the patient room, had just come off the breast after feeding for 15 minutes. Mother states infant was fighting her during the feeding and the latch was somewhat painful. Mother has a small blood blister on the right nipple. Instructed mother to call out at her next feeding so we can assess infants latch and try to prevent any additional nipple trauma. Lanolin given. Mother verbalized understanding.
[2023-08-08] VITALS: BP 123/73; PULSE 80; RESP 18; TEMP 37.1; O2SAT 96
[2023-08-08] MEDS: IBUPROFEN 600 MG TABLET PO (02:40)
[2023-08-08 05:58] LABS: Hemoglobin 10.1 g/dL (12.0-15.0)
[2023-08-08 07:35] VITALS: BP 124/82; PULSE 82; RESP 16; TEMP 36.8; O2SAT 99
--- NOTE | 2023-08-08 08:59 | PM.OBPNVD ---
OB - PN: Subj Subjective Date/time seen: 08/08/23 08:59 Patient comments: no complaints, pain well controlled, incisional pain, tolerating diet and flatus present OB - PN: Obj Data Labs 08/08/23 05:51 Labs: Laboratory Results - last 24 hr 08/06/23 08/08/23 23:26 05:51 Hgb 10.1 L Hct 31.0 L RPR Non-reactive OB - PN A/P Plan day: 1 Plan: routine care Comments: No problems, routine care, to discharge Time Spent With Patient Time: Total time spent is greater than 50% in coordination of care (as documented) at patient's floor/unit and/or counseling patient: Exam Const: General: comfortable, no acute distress and alert Resp: Effort & Inspection: normal respiratory effort Auscultation: no crackles, no rales and no rhonchi Cardio: Rate: regular rate Heart sounds: no click, no murmurs and no rubs GI: Inspection: non-distended GI Palp: No Tenderness to palpation present (GI) Auscultation: normal bowel sounds Other: Incision - CDI Extrem: General: normal to inspection, no pedal edema and no calf tenderness
[2023-08-08] MEDS: MULTIVIT/MIN/PREN/FOL AC/IRON TABLET 1 TAB PO (09:11)
[2023-08-08] MEDS: DOCUSATE SODIUM 100 MG CAPSULE PO (09:11)
--- NOTE | 2023-08-08 09:11 | PM.OBDSVD ---
DS: Admitting Diagnosis Discharge Date August 08, 2019 Admitting Diagnosis term DS: Discharge Diagnosis Discharge Diagnosis (1) Term delivered: Code(s): O80 - Encounter for full-term uncomplicated delivery Status: Acute OB - DS: Summary OB Procedures : None OB Procedures Intrapartum: Spontaneous Vag Delivery OB Procedures: : None Peripartum Data Laceration Description: Periurethral Episiotomy description: None Time Spent with Patient Time attestation: Total time spent providing and/or coordinating discharge services: DS: Data Data Completed and Pending Labs on day of discharge: Labs from last 24 hours 08/08/23 08/06/23 05:51 23:26 Hgb 10.1 L Hct 31.0 L RPR Non-reactive Discharge Plan Discharge Discharging Clinician: Tommy Dumas Patient Disposition: Home, Self-Care Activity: pelvic rest Diet: regular Patient Instructions: Antibiotic Form Stand Alone Forms: General Discharge Information Follow-up/Referrals: Tommy Dumas MD [Physician] - Discharge Medications: Continued erythromycin 5 mg/gram (0.5 %) ointment 1 applic LEFT EYE Q6H Qty: 3.5 0RF cetirizine 10 mg Tablet 10 mg PO DAILY acyclovir 800 mg Tablet 800 mg PO HS ferrous sulfate 325 mg (65 mg iron) Tablet 325 mg PO HS folic acid 1 mg Tablet 2 mg PO BID sertraline 50 mg Tablet 50 mg PO DAILY Calcium 600 with Vitamin D3 600 mg(1,500mg) -400 unit Tablet,Chewable 1 tablet PO QPM Rx Instructions: with dinner PNV cmb#95-ferrous fumarate-FA [] 28 mg iron- 800 mcg Tablet 1 tablet PO HS aspirin 81 mg Tablet 81 mg PO DAILY escitalopram oxalate 10 mg Tablet 10 mg PO DAILY Slynd 4 mg (28) Tablet 4 mg PO DAILY Date of admission: 08/06/23 20:42 Primary Care Provider: Memo Diaz Admitting Provider: Memo Diaz Attending physician on admission: Memo Diaz Condition: Stable
--- NOTE | 2023-08-08 11:08 | WPDANLDPN2 ---
Anes-Prog Note L&D Date/Time: 08/08/23 11:08 Comfortable throughout: labor and delivery Neuraxial method: epidural Epidural/Spinal procedure site: clean & non-tender Neuro status: Neuro function grossly intact. Cardiovascular status: normal Respiratory status: normal Airway patency: baseline Mental status: baseline Post-Op hydration status: normal Vital Signs: Last Vital Signs Temp 36.8 C 08/08/23 07:35 Pulse 82 08/08/23 07:35 Resp 16 08/08/23 07:35 BP 124/82 08/08/23 07:35 Pulse Ox 99 08/08/23 07:35 O2 Del Method Room Air 08/08/23 07:35 Pain score (VAS): 1 I/O: Intake & Output 08/07/23 08/08/23 08/08/23 23:59 07:59 15:59 Intake Total 240 Balance 240 Post-procedural complaints: none Patient feedback: Patient satisfied with anesthetic care.
[2023-08-08 20:20] VITALS: BP 117/74; PULSE 71; RESP 18; TEMP 36.8; O2SAT 99
--- NOTE | 2023-08-09 01:40 | PC.NURSE ---
Due to baby being transferred mother voiced that she would also like to leave. MD called at 0130, and he verbalized that he was ok with mother leaving at this time. Follow-up appointment scheduled, discharge instructions gone over, and supplies sent home with mother.
== END 2023-08-09 03:16 | disposition home or self-care (01) | DRG 560 ==
LOC: ANHOB2 08-09 02:18 → ANHLDR 08-11 08:49 → ANHOB2 08-11 08:49
PROVIDERS: Admitting Provider Obstetrics & Gynecology; PCP Obstetrics & Gynecology; Visit Provider Obstetrics & Gynecology
DX: O62.3 Precipitate labor (principal); Z37.0 Single live birth; Z3A.39 39 weeks gestation of pregnancy; O71.82 Other specified trauma to perineum and vulva
CPT/HCPCS: 36415; 85014; 85018; 85025; 86592; 86703; 86850; 86900; 86901; A9270; G0432; J2795; J7120